=== PATIENT | female | born 1950 | race Caucasian/White ===

== ENCOUNTER 2020-10-13 08:52 | Outpatient (REF) | payer MEDICARE, SELFPAY ==
[2020-10-13 10:26] LABS: MANUAL DIFF FLAG NO
[2020-10-13 10:43] LABS: Basophils Absolute Auto 0.1 X10*3/uL (0.0-0.2); Basophils Percent Auto 0.6 % (0-2); Eosinophils Absolute Auto 0.3 X10*3/uL (0.0-0.4); Hematocrit 43.5 % (37-47); Hemoglobin 13.4 g/dl (12.0-16.0); Imm Gran Abs Auto 0.04 X10*3/uL (0.00-0.03); Imm Gran Pct Auto 0.5 % (0.0-0.4); Lymphocytes Absolute Auto 1.9 X10*3/uL (1.2-4.9); Lymphocytes Percent Auto 22.8 % (20-40); Mean Corpuscular HGB Conc 30.8 g/dl (31.0-35.0); Mean Corpuscular Hemoglobin 29.5 pg (27.0-33.0); Mean Corpuscular Volume 95.6 fL (80-98); Mean Platelet Volume 10.9 fL (9.4-12.3); Monocytes Absolute Auto 0.7 X10*3/uL (0.1-1.2); Monocytes Percent Auto 7.9 % (2-11); Neutrophils Absolute Auto 5.5 X10*3/uL (2.0-8.3); Neutrophils Percent Auto 64.2 % (45-73); Platelet Count 217 X10*3/uL (160-400); Red Blood Count 4.55 X10*6/uL (4.20-5.50); Red Cell Distribution Width 12.7 % (11.0-16.0); White Blood Count 8.5 X10*3/uL (4.8-10.8)
[2020-10-13 10:59] LABS: Alanine Aminotransferase 32 U/L (0-31); Albumin Level 4.3 g/dL (3.5-5.0); Alkaline Phosphatase 61 U/L (39-117); Anion Gap 11 (12-20); Aspartate Amino Transferase 31 U/L (5-31); Bilirubin Total 0.7 mg/dL (0.0-1.0); Blood Urea Nitrogen 23 mg/dL (9-16); Calcium 8.6 mg/dL (8.4-10.2); Carbon Dioxide 28 mmol/L (22-29); Chloride 107 mmol/L (96-108); Estimated Glomerular Filt Rate 31; Glucose Fasting 83 mg/dL (60-99); Potassium 4.5 mmol/L (3.3-5.1); Sodium 141 mmol/L (135-145); Total Protein 7.2 g/dL (6.5-8.0)
[2020-10-13 11:23] LABS: Vitamin B12 251 pg/mL (200-900)
== END 2020-10-13 08:53 | disposition home or self-care (01) ==
LOC: HO.10HDL 08:52
PROVIDERS: Visit Provider Internal Medicine
DX: J44.9 Chronic obstructive pulmonary disease, unspecified (principal); E53.8 Deficiency of other specified B group vitamins; N18.9 Chronic kidney disease, unspecified; Z93.3 Colostomy status
CPT/HCPCS: 36415; 80053; 82607; 85025

== ENCOUNTER → 2021-01-04 08:22 | Outpatient (BNVA) | payer MEDICARE, SELFPAY | PROVIDERS: PCP Internal Medicine; Visit Provider Surgery | DX: K43.5 Parastomal hernia without obstruction or gangrene (principal) | CPT/HCPCS: 99202 ==

== ENCOUNTER → 2021-01-21 14:23 | Outpatient (BNVA) | payer MEDICARE, SELFPAY | PROVIDERS: PCP Internal Medicine; Referring Provider Internal Medicine; Visit Provider Surgery | DX: K94.10 Enterostomy complication, unspecified (principal); K43.5 Parastomal hernia without obstruction or gangrene | CPT/HCPCS: Q3014 ==

== ENCOUNTER → 2021-03-25 08:59 | Outpatient (BNVA) | payer MEDICARE, SELFPAY | PROVIDERS: PCP Internal Medicine; Referring Provider Internal Medicine; Visit Provider Surgery | DX: Z48.00 Encounter for change or removal of nonsurgical wound dressing (principal); K28.9 Gastrojejunal ulcer, unspecified as acute or chronic, without hemorrhage or perforation; K43.5 Parastomal hernia without obstruction or gangrene; E66.9 Obesity, unspecified | CPT/HCPCS: 99212 ==

== ENCOUNTER 2021-04-26 07:53 | Outpatient (REF) | payer MEDICARE, SELFPAY ==
[2021-04-26 11:34] LABS: MANUAL DIFF FLAG NO
[2021-04-26 11:39] LABS: Basophils Percent Auto 0.4 % (0-2); Eosinophils Absolute Auto 0.4 X10*3/uL (0.0-0.4); Eosinophils Percent Auto 4.1 % (0-4); Hematocrit 43.4 % (37-47); Hemoglobin 13.7 g/dl (12.0-16.0); Imm Gran Abs Auto 0.02 X10*3/uL (0.00-0.03); Imm Gran Pct Auto 0.2 % (0.0-0.4); Lymphocytes Absolute Auto 2.7 X10*3/uL (1.2-4.9); Lymphocytes Percent Auto 27.6 % (20-40); Mean Corpuscular HGB Conc 31.6 g/dl (31.0-35.0); Mean Corpuscular Hemoglobin 29.6 pg (27.0-33.0); Mean Corpuscular Volume 93.7 fL (80-98); Mean Platelet Volume 11.1 fL (9.4-12.3); Monocytes Absolute Auto 0.8 X10*3/uL (0.1-1.2); Monocytes Percent Auto 8.3 % (2-11); Neutrophils Absolute Auto 5.9 X10*3/uL (2.0-8.3); Neutrophils Percent Auto 59.4 % (45-73); Platelet Count 230 X10*3/uL (160-400); Red Blood Count 4.63 X10*6/uL (4.20-5.50); Red Cell Distribution Width 12.9 % (11.0-16.0); White Blood Count 9.9 X10*3/uL (4.8-10.8)
[2021-04-26 12:14] LABS: Alanine Aminotransferase 24 U/L (0-31); Albumin Level 4.4 g/dL (3.5-5.0); Alkaline Phosphatase 65 U/L (39-117); Anion Gap 14 (12-20); Aspartate Amino Transferase 40 U/L (5-31); Bilirubin Total 0.7 mg/dL (0.0-1.0); Blood Urea Nitrogen 23 mg/dL (9-16); Calcium 9.5 mg/dL (8.4-10.2); Carbon Dioxide 22 mmol/L (22-29); Chloride 110 mmol/L (96-108); Cholesterol 129 mg/dL; Estimated Glomerular Filt Rate 29; Glucose Fasting 95 mg/dL (60-99); HDL Cholesterol 45 mg/dL; LDL Cholesterol Calculated 39 mg/dl; Potassium 4.3 mmol/L (3.3-5.1); Sodium 142 mmol/L (135-145); Total Protein 7.4 g/dL (6.5-8.0); Triglycerides 228 mg/dL
[2021-04-26 12:29] LABS: Vitamin B12 272 pg/mL (200-900)
== END 2021-04-26 07:54 | disposition home or self-care (01) ==
LOC: HO.HMGCLDS 07:53
PROVIDERS: PCP Internal Medicine; Visit Provider Internal Medicine
DX: E78.00 Pure hypercholesterolemia, unspecified (principal); J44.9 Chronic obstructive pulmonary disease, unspecified; N18.9 Chronic kidney disease, unspecified; K94.10 Enterostomy complication, unspecified; E53.8 Deficiency of other specified B group vitamins
CPT/HCPCS: 36415; 80053; 80061; 82607; 85025

== ENCOUNTER 2021-10-11 08:21 | Outpatient (REF) | payer MEDICARE, SELFPAY ==
[2021-10-11 12:06] LABS: MANUAL DIFF FLAG NO
[2021-10-11 12:11] LABS: Basophils Absolute Auto 0.1 X10*3/uL (0.0-0.2); Basophils Percent Auto 0.6 % (0-2); Eosinophils Absolute Auto 0.3 X10*3/uL (0.0-0.4); Eosinophils Percent Auto 3.3 % (0-4); Hematocrit 44.2 % (37.0-47.0); Hemoglobin 13.5 g/dl (12.0-16.0); Imm Gran Abs Auto 0.03 X10*3/uL (0.00-0.03); Imm Gran Pct Auto 0.3 % (0.0-0.4); Lymphocytes Absolute Auto 2.1 X10*3/uL (1.2-4.9); Mean Corpuscular HGB Conc 30.5 g/dl (31.0-35.0); Mean Corpuscular Hemoglobin 29.4 pg (27.0-33.0); Mean Corpuscular Volume 96.3 fL (80.0-98.0); Mean Platelet Volume 10.6 fL (9.4-12.3); Monocytes Absolute Auto 0.7 X10*3/uL (0.1-1.2); Monocytes Percent Auto 7.6 % (2-11); Neutrophils Absolute Auto 5.8 x10*3/uL (2.0-8.3); Neutrophils Percent Auto 65.2 % (45-73); Platelet Count 230 X10*3/uL (160-400); Red Blood Count 4.59 X10*6/uL (4.20-5.50); Red Cell Distribution Width 12.4 % (11.0-16.0)
[2021-10-11 12:43] LABS: Alanine Aminotransferase 19 U/L (0-31); Albumin Level 4.4 g/dL (3.5-5.0); Alkaline Phosphatase 56 U/L (39-117); Anion Gap 12 (12-20); Aspartate Amino Transferase 23 U/L (5-31); Bilirubin Total 0.7 mg/dL (0.0-1.0); Blood Urea Nitrogen 26 mg/dL (9-16); Calcium 9.6 mg/dL (8.4-10.2); Carbon Dioxide 25 mmol/L (22-29); Chloride 109 mmol/L (96-108); Estimated Glomerular Filt Rate 30; Glucose Random 86 mg/dL (60-115); Potassium 4.5 mmol/L (3.3-5.1); Sodium 141 mmol/L (135-145); Total Protein 7.5 g/dL (6.5-8.0)
== END 2021-10-11 08:22 | disposition home or self-care (01) ==
LOC: HO.HMGCLDS 08:21
PROVIDERS: PCP Internal Medicine; Visit Provider Internal Medicine
DX: N18.9 Chronic kidney disease, unspecified (principal); E78.00 Pure hypercholesterolemia, unspecified; M84.38XA Stress fracture, other site, initial encounter for fracture; X58.XXXA Exposure to other specified factors, initial encounter; Y93.9 Activity, unspecified; Y92.9 Unspecified place or not applicable; Y99.8 Other external cause status; Z93.3 Colostomy status
CPT/HCPCS: 36415; 80053; 82550; 85025

== ENCOUNTER 2022-02-28 15:48 | Outpatient (REF) | payer MEDICARE, SELFPAY ==
--- NOTE | ~2022-02-28 | XR_ITS ---
EXAMINATION: XR SINUSES CLINICAL INFORMATION: Sinus pain. Right-sided sinus pressure. COMPARISON: None TECHNIQUE: 3 views of the sinuses were obtained. FINDINGS: Paranasal sinuses appear clear without air-fluid levels. No fractures are identified. No radiodense foreign bodies. XR/XR sinus min 3V IMPRESSION: The paranasal sinuses appear clear.
== END 2022-02-28 15:49 | disposition home or self-care (01) ==
LOC: HO.XRAY 15:48
PROVIDERS: PCP Internal Medicine; Visit Provider Internal Medicine
DX: R51.9 Headache, unspecified (principal); J34.89 Other specified disorders of nose and nasal sinuses
CPT/HCPCS: 70220

== ENCOUNTER 2022-05-02 10:27 | Outpatient (REF) | payer MEDICARE, SELFPAY ==
[2022-05-02 12:38] LABS: Vitamin B12 245 pg/mL (200-900)
[2022-05-02 12:44] LABS: Alanine Aminotransferase 15 U/L (0-31); Albumin Level 4.2 g/dL (3.5-5.0); Alkaline Phosphatase 50 U/L (39-117); Anion Gap 13 (12-20); Aspartate Amino Transferase 22 U/L (5-31); Bilirubin Total 0.5 mg/dL (0.0-1.0); Blood Urea Nitrogen 22 mg/dL (9-16); Calcium 9.2 mg/dL (8.4-10.2); Carbon Dioxide 25 mmol/L (22-29); Chloride 107 mmol/L (96-108); Estimated Glomerular Filt Rate 32; Glucose Random 96 mg/dL (60-115); Potassium 4.2 mmol/L (3.3-5.1); Sodium 141 mmol/L (135-145); Total Protein 6.9 g/dL (6.5-8.0)
== END 2022-05-02 10:28 | disposition home or self-care (01) ==
LOC: HO.HMGCLDS 10:27
PROVIDERS: PCP Internal Medicine; Visit Provider Internal Medicine
DX: J44.9 Chronic obstructive pulmonary disease, unspecified (principal); N18.9 Chronic kidney disease, unspecified; E53.8 Deficiency of other specified B group vitamins; Z93.3 Colostomy status
CPT/HCPCS: 36415; 80053; 82607

== ENCOUNTER 2022-11-07 07:51 | Outpatient (REF) | payer MEDICARE, SELFPAY ==
[2022-11-07 11:26] LABS: MANUAL DIFF FLAG NO
[2022-11-07 11:38] LABS: Basophils Absolute Auto 0.1 X10*3/uL (0.0-0.2); Basophils Percent Auto 0.6 % (0-2); Eosinophils Absolute Auto 0.4 X10*3/uL (0.0-0.4); Eosinophils Percent Auto 4.2 % (0-4); Hematocrit 40.1 % (37.0-47.0); Hemoglobin 12.7 g/dl (12.0-16.0); Imm Gran Abs Auto 0.02 X10*3/uL (0.00-0.03); Imm Gran Pct Auto 0.2 % (0.0-0.4); Lymphocytes Absolute Auto 2.1 X10*3/uL (1.2-4.9); Lymphocytes Percent Auto 25.1 % (20-40); Mean Corpuscular HGB Conc 31.7 g/dl (31.0-35.0); Mean Corpuscular Hemoglobin 30.7 pg (27.0-33.0); Mean Corpuscular Volume 96.9 fL (80.0-98.0); Monocytes Absolute Auto 0.7 X10*3/uL (0.1-1.2); Monocytes Percent Auto 7.8 % (2-11); Neutrophils Absolute Auto 5.2 x10*3/uL (2.0-8.3); Neutrophils Percent Auto 62.1 % (45-73); Platelet Count 190 X10*3/uL (160-400); Red Blood Count 4.14 X10*6/uL (4.20-5.50); Red Cell Distribution Width 12.4 % (11.0-16.0); White Blood Count 8.3 X10*3/uL (4.8-10.8)
[2022-11-07 12:50] LABS: Alanine Aminotransferase 16 U/L (0-31); Albumin Level 4.1 g/dL (3.5-5.0); Alkaline Phosphatase 59 U/L (39-117); Anion Gap 13 (12-20); Aspartate Amino Transferase 21 U/L (5-31); Bilirubin Total 0.7 mg/dL (0.0-1.0); Blood Urea Nitrogen 19 mg/dL (9-16); Calcium 9.2 mg/dL (8.4-10.2); Carbon Dioxide 25 mmol/L (22-29); Chloride 111 mmol/L (96-108); Cholesterol 144 mg/dL; Estimated Glomerular Filt Rate 35; Glucose Fasting 83 mg/dL (60-99); HDL Cholesterol 46 mg/dL; LDL Cholesterol Calculated 50 mg/dl; Potassium 4.6 mmol/L (3.3-5.1); Sodium 144 mmol/L (135-145); Total Protein 6.7 g/dL (6.5-8.0); Triglycerides 243 mg/dL
[2022-11-07 12:57] LABS: Vitamin B12 294 pg/mL (200-900)
== END 2022-11-07 07:52 | disposition home or self-care (01) ==
LOC: HO.HMGCLDS 07:51
PROVIDERS: PCP Internal Medicine; Visit Provider Internal Medicine
DX: Z00.00 Encounter for general adult medical examination without abnormal findings (principal); Z20.2 Contact with and (suspected) exposure to infections with a predominantly sexual mode of transmission
CPT/HCPCS: 36415; 80053; 80061; 82607; 85025

== ENCOUNTER 2023-04-20 11:40 | Outpatient (REF) | payer MEDICARE, SELFPAY ==
[2023-04-20 11:52] LABS: MANUAL DIFF FLAG NO
[2023-04-20 12:30] LABS: Basophils Absolute Auto 0.1 X10*3/uL (0.0-0.2); Basophils Percent Auto 0.6 % (0-2); Eosinophils Absolute Auto 0.3 X10*3/uL (0.0-0.4); Eosinophils Percent Auto 3.7 % (0-4); Hematocrit 39.3 % (37.0-47.0); Hemoglobin 12.4 g/dl (12.0-16.0); Imm Gran Abs Auto 0.04 X10*3/uL (0.00-0.03); Imm Gran Pct Auto 0.5 % (0.0-0.4); Lymphocytes Absolute Auto 2.2 X10*3/uL (1.2-4.9); Lymphocytes Percent Auto 25.5 % (20-40); Mean Corpuscular HGB Conc 31.6 g/dl (31.0-35.0); Mean Corpuscular Hemoglobin 29.9 pg (27.0-33.0); Mean Corpuscular Volume 94.7 fL (80.0-98.0); Mean Platelet Volume 10.5 fL (9.4-12.3); Monocytes Absolute Auto 0.9 X10*3/uL (0.1-1.2); Monocytes Percent Auto 10.3 % (2-11); Neutrophils Percent Auto 59.4 % (45-73); Platelet Count 195 X10*3/uL (160-400); Red Blood Count 4.15 X10*6/uL (4.20-5.50); Red Cell Distribution Width 12.9 % (11.0-16.0); White Blood Count 8.5 X10*3/uL (4.8-10.8)
[2023-04-20 13:15] LABS: Anion Gap 15 (12-20); Blood Urea Nitrogen 20 mg/dL (9-16); Calcium 9.4 mg/dL (8.4-10.2); Carbon Dioxide 23 mmol/L (22-29); Chloride 105 mmol/L (96-108); Estimated Glomerular Filt Rate 32; Glucose Random 69 mg/dL (60-115); Potassium 4.5 mmol/L (3.3-5.1); Sodium 138 mmol/L (135-145)
[2023-04-20 13:23] LABS: Vitamin D 25-OH Total 40.4 ng/mL (>30)
== END 2023-04-20 11:41 | disposition home or self-care (01) ==
LOC: HO.LAB 11:40
PROVIDERS: PCP Internal Medicine; Visit Provider Internal Medicine
DX: I12.9 Hypertensive chronic kidney disease with stage 1 through stage 4 chronic kidney disease, or unspecified chronic kidney disease (principal); N18.9 Chronic kidney disease, unspecified; J44.9 Chronic obstructive pulmonary disease, unspecified; E53.8 Deficiency of other specified B group vitamins
CPT/HCPCS: 36415; 80048; 82306; 85025

== ENCOUNTER 2023-09-28 10:16 | Outpatient (REF) | payer MEDICARE, SELFPAY ==
[2023-09-28 11:04] LABS: MANUAL DIFF FLAG NO
[2023-09-28 11:12] LABS: Basophils Absolute Auto 0.1 X10*3/uL (0.0-0.2); Basophils Percent Auto 0.6 % (0-2); Eosinophils Absolute Auto 0.3 X10*3/uL (0.0-0.4); Eosinophils Percent Auto 3.3 % (0-4); Hematocrit 42.1 % (37.0-47.0); Hemoglobin 13.6 g/dl (12.0-16.0); Imm Gran Abs Auto 0.03 X10*3/uL (0.00-0.03); Imm Gran Pct Auto 0.4 % (0.0-0.4); Lymphocytes Absolute Auto 1.9 X10*3/uL (1.2-4.9); Lymphocytes Percent Auto 23.2 % (20-40); Mean Corpuscular HGB Conc 32.3 g/dl (31.0-35.0); Mean Corpuscular Hemoglobin 29.8 pg (27.0-33.0); Mean Corpuscular Volume 92.3 fL (80.0-98.0); Monocytes Absolute Auto 0.7 X10*3/uL (0.1-1.2); Monocytes Percent Auto 8.6 % (2-11); Neutrophils Absolute Auto 5.1 x10*3/uL (2.0-8.3); Neutrophils Percent Auto 63.9 % (45-73); Platelet Count 216 X10*3/uL (160-400); Red Blood Count 4.56 X10*6/uL (4.20-5.50); Red Cell Distribution Width 12.7 % (11.0-16.0)
[2023-09-28 11:48] LABS: Alanine Aminotransferase 22 U/L (0-31); Albumin Level 4.3 g/dL (3.5-5.0); Alkaline Phosphatase 64 U/L (39-117); Anion Gap 13 (12-20); Aspartate Amino Transferase 24 U/L (5-31); Bilirubin Total 0.5 mg/dL (0.0-1.0); Blood Urea Nitrogen 24 mg/dL (9-16); Calcium 9.6 mg/dL (8.4-10.2); Carbon Dioxide 26 mmol/L (22-29); Chloride 107 mmol/L (96-108); Estimated Glomerular Filt Rate 28; Glucose Random 87 mg/dL (60-115); Potassium 4.7 mmol/L (3.3-5.1); Sodium 141 mmol/L (135-145); Total Protein 7.7 g/dL (6.5-8.0)
[2023-09-28 12:04] LABS: Vitamin B12 281 pg/mL (200-900)
== END 2023-09-28 10:17 | disposition home or self-care (01) ==
LOC: HO.10HDL 10:16
PROVIDERS: Visit Provider Internal Medicine
DX: I12.9 Hypertensive chronic kidney disease with stage 1 through stage 4 chronic kidney disease, or unspecified chronic kidney disease (principal); N18.9 Chronic kidney disease, unspecified; E53.8 Deficiency of other specified B group vitamins
CPT/HCPCS: 36415; 80053; 82607; 85025

== ENCOUNTER 2023-11-29 15:46 | Emergency (ER) | payer MEDICARE, SELFPAY ==
[2023-11-29 15:56] VITALS: BP 156/80; PULSE 78; RESP 16; TEMP 36.8; O2SAT 95; BMI 29.0
--- NOTE | 2023-11-29 16:41 | ED.GENADULT ---
HPI - General Adult General Chief complaint: Animal Bite Stated complaint: tick bite Time Seen by Provider: 11/29/23 16:40 Source: patient Mode of arrival: ambulatory Limitations: no limitations History of Present Illness ED Provider: Tash Mathew PA-C HPI narrative: Patient is a 73 year old assigned female at with a history of HTN presenting to the emergency department today after removing a tick from the top of her left ear. Patient states that she felt a tick bite her left ear and removed it, complete with head. Patient states that her ear continues to hurt and given this is her first time being bit by a tick, she is concerned. Patient denies any dizziness, lightheadedness, abdominal pain, nausea, vomiting, fever, chills, blurry vision, double vision, loss of vision, chest pain, difficulty breathing, shortness of breath, back pain, night sweats, pain with urination, increased urinary frequency, increased urinary urgency, blood in her urine or stool, syncope or a near syncopal episode, bowel incontinence, bladder incontinence, bowel retention, bladder retention, or any other complaints at this time. Onset (ago): minute(s) Location: left (ear) Relieving factors: none Exacerbating factors: none Associated symptoms: denies other symptoms Treatments prior to arrival: none Related Data Home Medications ?Medication ?Instructions ?Recorded ?Confirmed atorvastatin 10 mg tablet 10 mg PO DAILY 01/04/21 03/25/21 clotrimazole 1 % topical cream appl topical BID 01/04/21 03/25/21 gabapentin 300 mg capsule 300 mg PO BID PRN pain 01/04/21 03/25/21 metoprolol tartrate 25 mg tablet 12.5 mg PO BID 01/04/21 03/25/21 Allergies Allergy/AdvReac Type Severity Reaction Status Date / Time No Known Allergies Allergy Unknown Verified 11/29/23 15:59 Review of Systems Constitutional: Constitutional: Reports no additional constitutional complaints, Denies chills, Denies fever(s) and Denies night sweats Eyes: Eyes: Reports no additional eye complaints, Denies blurry vision, Denies change in vision, Denies diplopia, Denies eye discharge, Denies loss of vision and Denies eye pain ENT: Denies dizziness Comments: left ear pain Cardiovascular: Cardiovascular: Reports no additional cardiovascular complaints, Denies chest pain, Denies lightheadedness, Denies Loss of Consciousness and Denies dyspnea Respiratory: Respiratory: Reports no additional respiratory complaints and Denies dyspnea Gastrointestinal: Gastrointestinal: Reports no additional gastrointestinal complaints, Denies abdominal pain, Denies melena, Denies hematochezia, Denies change in bowel habits and Denies change in stool character Genitourinary: Genitourinary: Denies hematuria, Denies urinary frequency, Denies dysuria, Denies urinary incontinence, Denies urinary hesitancy and Denies urinary urgency Musculoskeletal: Musculoskeletal: Reports no additional musculoskeletal complaints, Denies numbness and Denies tingling Neurologic: Denies dizziness, Denies loss of vision, Denies numbness and Denies tingling Psychiatric: Psychiatric: Reports no additional psychiatric complaints Endocrine: Endocrine: Reports no additional endocrine complaints Hematologic/Lymphatic: Hematologic/Lymphatic: Reports no additional hematologic/lymphatic complaints Allergic/Immunologic: Allergic/Immunologic: Reports no additional allergic/immunologic complaints PMFSH Past Medical History Attestation statement: The following information was validated with the patient. Source: old records reviewed and nursing notes reviewed Medical History Parastomal hernia Complication of external stoma of gastrointestinal tract Morbid obesity Hypertension Family History Family History Father Metastatic cancer Social History Social History Alcohol intake: never Patient Tobacco Use Status: Current everyday Tobacco user Advance Directives: No Advance Directives Information Provided: No Do you have a plan to hurt others: No Plan Physical Exam ED Vital Signs: Vital Signs - 24 hr 11/29/23 15:56 11/29/23 17:48 Temperature 98.3 F 97.9 F Pulse Rate 78 83 Respiratory Rate 16 18 Blood Pressure 156/80 H 123/57 L Pulse Oximetry 95 97 Oxygen Delivery Method Room Air Room Air BMI result Body Mass Index 29.0 Const General: cooperative, no acute distress, alert and awake Nutritional Appearance: well nourished Orientation/consciousness: patient oriented x3 Limitations: no limitations HENMT Head: Yes normal to inspection and Yes atraumatic Ears: hearing grossly normal bilaterally and other (minimal erythema to the most superior aspect of the left external ear) General nose exam: Normal external nose present, no nasal discharge noted and no epistaxis Face and sinus: Yes normal facial exam, No abrasion and No laceration Mouth: Normal oral and palatal mucosa present, no drooling and no muffled voice Eyes General: appearance normal, both eyes and all related structures Periorbital: periorbital findings normal Eyelids: Yes eyelids normal Conjunctivae: conjunctivae normal Pupils: Equal, round and reactive pupils present EOM: EOMs intact bilaterally Neck Neck: Yes normal visual inspection, Yes full ROM and Yes no lymphadenopathy Chest Chest palpation & inspection: normal inspection of the chest Resp Effort & Inspection: normal respiratory effort and able to speak in complete sentences GI Inspection: Yes normal to inspection Neuro General: patient oriented x3 and moves all extremities Cranial nerves: Yes Equal, round and reactive pupils present Cognition (Neuro): normal cognition Motor exam (neuro): 5/5 motor strength present throughout Sensory Exam: Normal double simultaneous stimulation for sensation Coordination: [id number] test normal Extrem General: Yes normal to inspection, Yes full ROM and Yes capillary refill normal Psych Appearance: grossly normal Mental Status: mental status grossly normal Affect: normal affect Attitude: cooperative Thought process: Normal thought process present Thought content: Normal thought content present Insight: Good insight present (Psych) Medical Decision Making Medical Decision Making MDM Narrative: Patient is a 73 year old assigned female at with a history of HTN presenting to the emergency department today with a left ear tick bite. Patient's physical exam showed erythema to the left ear but no evidence of retained tick head or particles. Patient's Lyme test is pending. I explained to the patient that given the relatively short time the tick was attached and the successful complete removal of it from her ear, it is lerner to await Lyme results before beginning antibiotics. I explained my physical exam findings to the patient. I answered all questions asked by the patient. I stressed the importance of the patient taking her medication as prescribed. I stressed the importance of the patient following up with her primary care provider. I stressed the importance of the patient returning to the emergency department immediately if her symptoms were to worsen or if she were to develop any dizziness, shortness of breath, difficulty breathing, chest pain, blurry vision, loss of vision, nausea, vomiting, abdominal pain, fever, chills, back pain, or any other complaints. Patient verbalized agreement and understanding with this treatment plan and discharge. Differential Diagnosis Differential Diagnoses: The differential diagnosis associated with the presentation includes Tick bite Lyme disease Admission/Observation Consideration of admission/observation: Escalation of care including admission/observation considered Patient would have been admitted to the hospital had her clinical presentation warranted hospital admission. Prescription Management I considered prescription management with: Antibiotic (I considered giving prophylactic antibitioc for Lyme disease however, given limited exposure - did not at this time.) Chronic Conditions Patient?s care impacted by: Hypertension Discharge Plan Discharge Clinical Impression: Tick bite Patient Disposition: Home, Self-Care Instructions: Tick Bite (ED) Additional Instructions: Given that you removed the head of the tick very quickly after the initial bite - it is of lower likelihood that you have contracted anything from the tick. If your Lyme test is positive, we will call you. Follow up with your primary care provider. Return to the emergency department immediately if your symptoms worsen or if you develop any dizziness, shortness of breath, difficulty breathing, chest pain, blurry vision, loss of vision, nausea, vomiting, abdominal pain, fever, chills, back pain, or any other complaints. Prescriptions: No Action metoprolol tartrate 25 mg tablet 12.5 mg PO BID atorvastatin 10 mg tablet 10 mg PO DAILY clotrimazole 1 % cream topical BID gabapentin 300 mg capsule 300 mg PO BID PRN (Reason: pain) Referrals: Wali Harris MD [Primary Care Provider] - Print Language: Scottish
[2023-11-29 17:48] VITALS: BP 123/57; PULSE 83; RESP 18; TEMP 36.6; O2SAT 97
[2023-12-01 00:04] LABS: A. Phagocytphilium DNA,RT-PCR NOT DETECTED (NOT DETECTED); Babesia Microti DNA, RT-PCR NOT DETECTED (NOT DETECTED); Borrelia Miyamotoi,DNA RT-PCR NOT DETECTED (NOT DETECTED); E.Chaffeensis DNA RT-PCR NOT DETECTED (NOT DETECTED); Lyme(Borrelia ssp)DNA RT-PCR NOT DETECTED (NOT DETECTED)
== END 2023-11-29 18:34 | disposition home or self-care (01) ==
PROVIDERS: Physician Assistant Medical; Emergency Provider Emergency Medicine Emergency Medical Services; PCP Internal Medicine
DX: S00.462A Insect bite (nonvenomous) of left ear, initial encounter (principal); W57.XXXA Bitten or stung by nonvenomous insect and other nonvenomous arthropods, initial encounter; Y93.9 Activity, unspecified; Y92.9 Unspecified place or not applicable; Y99.9 Unspecified external cause status; I10 Essential (primary) hypertension
CPT/HCPCS: 36415; 87468; 87469; 87478; 87484; 87798; 99283

== ENCOUNTER 2024-04-16 09:47 | Emergency (ER) | payer MEDICARE, SELFPAY ==
[2024-04-16 10:04] VITALS: BP 172/65; PULSE 71; RESP 18; TEMP 36.9; O2SAT 97; BMI 29.1
[2024-04-16 10:54] LABS: MANUAL DIFF FLAG NO
[2024-04-16 10:56] LABS: Basophils Absolute Auto 0.1 X10*3/uL (0.0-0.2); Basophils Percent Auto 0.5 % (0-2); Eosinophils Absolute Auto 0.1 X10*3/uL (0.0-0.4); Eosinophils Percent Auto 1.4 % (0-4); Hematocrit 41.8 % (37.0-47.0); Hemoglobin 13.4 g/dl (12.0-16.0); Imm Gran Abs Auto 0.04 X10*3/uL (0.00-0.03); Imm Gran Pct Auto 0.4 % (0.0-0.4); Lymphocytes Absolute Auto 1.7 X10*3/uL (1.2-4.9); Lymphocytes Percent Auto 16.5 % (20-40); Mean Corpuscular HGB Conc 32.1 g/dl (31.0-35.0); Mean Corpuscular Volume 93.7 fL (80.0-98.0); Mean Platelet Volume 9.7 fL (9.4-12.3); Monocytes Absolute Auto 0.7 X10*3/uL (0.1-1.2); Neutrophils Absolute Auto 7.5 x10*3/uL (2.0-8.3); Neutrophils Percent Auto 74.2 % (45-73); Platelet Count 181 X10*3/uL (160-400); Red Blood Count 4.46 X10*6/uL (4.20-5.50); Red Cell Distribution Width 12.5 % (11.0-16.0); White Blood Count 10.1 X10*3/uL (4.8-10.8)
[2024-04-16 11:17] LABS: Alanine Aminotransferase 20 U/L (0-31); Albumin Level 4.2 g/dL (3.5-5.0); Alkaline Phosphatase 55 U/L (39-117); Anion Gap 12 (12-20); Aspartate Amino Transferase 29 U/L (5-31); Bilirubin Total 0.6 mg/dL (0.0-1.0); Blood Urea Nitrogen 16 mg/dL (9-16); Calcium 9.5 mg/dL (8.4-10.2); Carbon Dioxide 27 mmol/L (22-29); Chloride 111 mmol/L (96-108); Creatinine Clr Calc Pharmacy 33.7; Estimated Glomerular Filt Rate 31; Glucose Random 89 mg/dL (60-115); Potassium 4.8 mmol/L (3.3-5.1); Sodium 145 mmol/L (135-145); Total Protein 7.2 g/dL (6.5-8.0)
== END 2024-04-16 21:34 | disposition left against medical advice (07) ==
LOC: HO.ED 21:07
PROVIDERS: Emergency Provider Emergency Medicine; PCP Internal Medicine
DX: E86.0 Dehydration (principal); Z79.899 Other long term (current) drug therapy
CPT/HCPCS: 36415; 80053; 85025; 99281; 99283

== ENCOUNTER 2024-04-29 08:52 | Emergency (ER) | payer MEDICARE, SELFPAY ==
--- NOTE | ~2024-04-29 | CT_ITS ---
EXAMINATION: CT HEAD WITHOUT CONTRAST CT SOFT TISSUE NECK WITHOUT CONTRAST CLINICAL INFORMATION: Episode of altered mental status. Seizure. Right-sided neck pain and tenderness. COMPARISON: None available. TECHNIQUE: Contiguous axial imaging was performed from the skull base to vertex without intravenous administration of contrast. Multidetector helical imaging was performed in the axial plane without intravenous contrast. Multiple axial reformats and coronal/sagittal reconstructions were created the technologist workstation for review. This CT examination was performed using dose optimization techniques as appropriate, variously including the following: *Automated exposure control. *Adjustment of mA and/or kV according to patient size (this includes techniques or standardized protocols for targeted exams where dose is matched to indication/reason for exam; i.e. extremities or head). *Use of iterative reconstruction technique. DLP: 1056 mGy-cm FINDINGS: Head: There is no evidence of acute intracranial hemorrhage or edematous territorial infarction. Whitt-white matter differentiation is preserved. There is no abnormal attenuation within the brain parenchyma. The ventricles are normal in morphology and size. No evidence for obstructive hydrocephalus. No abnormal mass effect or midline shift. No extra-axial fluid collections. Calcific atherosclerotic disease of the intracranial internal carotid arteries. No hyperdense vessel sign. No acute soft tissue or osseous abnormalities. Mild mucosal thickening of the paranasal sinuses. Mild rightward nasal septal deviation. The mastoid air cells and middle ear cavities are clear. Moderate degenerative arthropathy of the temporomandibular joints. Neck: No significant cutaneous thickening or subcutaneous inflammation. No discrete fluid collection within the deep tissues of the neck. The premaxillary, retromaxillary, pterygopalatine fossa, orbital apical, parapharyngeal, and prelaryngeal adipose tissue is maintained. There is a soft tissue nodule along the posterior aspect of the superficial lobe of the left parotid gland, measuring up to 1.2 x 0.8 x 1.3 cm. There is a soft tissue nodule in the superficial lobe of the right parotid gland posterior to the retromandibular vein, measuring up to 1.2 x 0.8 x 1.5 cm. Normal appearance of the submandibular glands. Potential 1.6 cm hypoattenuating nodule in the lower pole of the left thyroid lobe. Scattered subcentimeter lymph nodes bilaterally, none of which are pathologically enlarged. No demonstrated focal lesion in the intrinsic tissues of the tongue or floor of mouth. Normal mucosal contours of the pharynx and larynx. Normal appearance of the hyoid bone, thyroid cartilage, or cartilaginous trachea. The airways remains widely patent. No radiopaque foreign bodies. The atlantooccipital and atlantoaxial articulations remain well aligned. Straightening of the normal cervical lordosis. No evidence of acute fracture or subluxation of the cervical spine. The vertebral body heights are maintained. Advanced degenerative disc disease from C3-T1 with disc-osteophyte complex formation. There appears to be at least moderate spinal canal stenoses from C3-C7. Facet and uncovertebral joint arthropathy leads to osseous encroachment on the neural foramina from C3-C7. There is no prevertebral soft tissue swelling. The visualized portion of the skull base is without significant abnormalities. The visualized paranasal sinuses are clear. The mastoid air cells and middle ear cavities are clear. No demonstrated significant periapical odontogenic disease. Upper Chest: Mild to moderate centrilobular emphysema of the visualized upper lungs. CT/CT soft tissue neck wo IV con IMPRESSION: 1. No evidence of acute intracranial hemorrhage or edematous territorial infarction. 2. Nonspecific soft tissue nodules in the superficial lobes of the bilateral parotid glands. Recommend further characterization with directed ultrasound and/or tissue sampling. 3. Potential 1.6 cm nodule in the lower pole of the left thyroid lobe. Recommend further characterization with thyroid ultrasound. 4. Advanced multilevel degenerative spondyloarthropathy of the cervical spine. Most notably on this limited exam without intrathecal contrast, there appears to be at least moderate spinal canal stenoses from C3-C7. 5. Emphysema. Electronically signed by: Chong Paz DO 04/29/2024 04:00 PM EDT
[2024-04-29 08:58] VITALS: BP 171/69; PULSE 57; RESP 16; TEMP 37; O2SAT 100; BMI 28.5
--- NOTE | 2024-04-29 09:05 | ECG_ITS ---
Test Reason : PALPITATIONS Blood Pressure : / mmHG Vent. Rate : 053 BPM Atrial Rate : 053 BPM P-R Int : 170 ms QRS Dur : 154 ms QT Int : 486 ms P-R-T Axes : 095 -43 074 degrees QTc Int : 456 ms Sinus bradycardia Left axis deviation Left bundle branch block Abnormal ECG When compared with ECG of 24-JUN-2010 14:28, Vent. rate has decreased BY 26 BPM Left bundle branch block is now Present Referred By: Generic ED Physician Electronically Signed By:Emerson Weir
[2024-04-29 09:33] LABS: MANUAL DIFF FLAG NO
[2024-04-29 09:37] LABS: Basophils Percent Auto 0.5 % (0-2); Eosinophils Absolute Auto 0.2 X10*3/uL (0.0-0.4); Hematocrit 39.7 % (37.0-47.0); Hemoglobin 12.7 g/dl (12.0-16.0); Imm Gran Abs Auto 0.02 X10*3/uL (0.00-0.03); Imm Gran Pct Auto 0.3 % (0.0-0.4); Lymphocytes Absolute Auto 1.6 X10*3/uL (1.2-4.9); Lymphocytes Percent Auto 21.3 % (20-40); Mean Corpuscular Hemoglobin 30.1 pg (27.0-33.0); Mean Corpuscular Volume 94.1 fL (80.0-98.0); Mean Platelet Volume 9.9 fL (9.4-12.3); Monocytes Absolute Auto 0.6 X10*3/uL (0.1-1.2); Monocytes Percent Auto 8.3 % (2-11); Neutrophils Percent Auto 67.6 % (45-73); Platelet Count 195 X10*3/uL (160-400); Red Blood Count 4.22 X10*6/uL (4.20-5.50); Red Cell Distribution Width 12.4 % (11.0-16.0); White Blood Count 7.3 X10*3/uL (4.8-10.8)
[2024-04-29 09:38] LABS: Appearance Urine Clear; Color Urine Yellow; Glucose Urine UA Negative (Negative); Leukocyte Esterase Urine Negative (Negative); Nitrite Urine Negative (Negative); Specific Gravity - Urine <= 1.005 (1.005-1.025); UMIC TRIGGER UACC YES; Urine Blood Negative (Negative); Urine Ketones Negative (Negative); Urine Protein 30 (1+) mg/dL (Neg-Trace)
[2024-04-29 09:40] LABS: Bacteria Urine None Seen (None Seen); Hyaline Casts Urine 0-2 /LPF (0-2); RBC Urine 0-2 /HPF (0-2); WBC Urine 0-5 /HPF (0-5)
--- NOTE | 2024-04-29 09:55 | ED.GENADULT ---
HPI - General Adult General Chief complaint: Dizziness Stated complaint: Dehydration, lightheaded Time Seen by Provider: 04/29/24 09:55 History of Present Illness ED Provider: Jaya GOFF narrative: The patient is a 73-year-old female who has not been feeling well for about 5 weeks. She says that she has had a sense of fullness in her right ear and has had some pain on the right side of her neck. She also says that she has episodes during which she feels a roaring sensation in her ears. These episodes do not last very long, approximately 10 seconds. Episodes are quite disturbing however and cause her to stop being able to do else. She does not lose consciousness during these episodes although her , who says that he witnessed 1 of these episodes, says that she slumped over on the bed at the time although she did not lose consciousness. This was a few weeks ago. The patient went to see her primary care doctor a couple of weeks ago complaining primarily of right ear symptoms. She says that her PCP said that he could not see anything wrong with her ears and referred her to ENT but does not have an appointment until late June. No fever, sweats, chills. No nausea or vomiting. The patient has an ileostomy. Apparently she had complications following an attempted repair of an abdominal wall hernia. A bowel injury occurred and she was required to have an ileostomy. This occurred approximately 10 years ago and the ileostomyhas never been reversed. the patient says that she might of had some slight increased of ileostomy output recently. Related Data Home Medications ?Medication ?Instructions ?Recorded ?Confirmed atorvastatin 10 mg tablet 10 mg PO DAILY 01/04/21 03/25/21 clotrimazole 1 % topical cream appl topical BID 01/04/21 03/25/21 gabapentin 300 mg capsule 300 mg PO BID PRN pain 01/04/21 03/25/21 metoprolol tartrate 25 mg tablet 12.5 mg PO BID 01/04/21 03/25/21 Allergies Allergy/AdvReac Type Severity Reaction Status Date / Time No Known Allergies Allergy Unknown Verified 04/29/24 09:03 Review of Systems Review of Systems: Yes all other systems are reviewed and are negative [facility] Past Medical History Medical History Parastomal hernia Complication of external stoma of gastrointestinal tract Morbid obesity Hypertension Family History Family History Father Metastatic cancer Social History Social History Alcohol intake: never Patient Tobacco Use Status: Current everyday Tobacco user Advance Directives: No Advance Directives Information Provided: Yes Do you have a plan to hurt others: No Plan Physical Exam ED Vital Signs: Vital Signs - 24 hr 04/29/24 11:56 04/29/24 13:58 04/29/24 16:40 Temperature 97.9 F 97.9 F 98.1 F Pulse Rate 53 51 72 Respiratory Rate 14 14 16 Blood Pressure 165/66 H 146/58 H 153/82 H Pulse Oximetry 98 97 96 Oxygen Delivery Method Room Air Room Air Room Air BMI result Body Mass Index 28.5 Const Other: the patient is a pleasant older woman who is awake and alert and does not seem in any distress. She does not seem ill or uncomfortable in anyway. HENMT Other: The face is symmetrical. Mucous membranes are moist. Tympanic membranes are normal bilaterally. Ear canals are clear. Eyes Other: Pupils are round equal. Extraocular movements are intact. Conjunctivae are clear. Neck Other: There is some generalized tenderness with palpation along the right side of the neck. There is no focal tenderness or obvious discrete swelling. She seems to move her neck easily. Resp Effort & Inspection: normal respiratory effort Auscultation: clear to auscultation bilaterally Cardio Rate: regular rate Rhythm: regular rhythm Heart sounds: S1 normal heart sound present and S2 normal heart sound present GI Other: The abdomen is soft and nontender. There is an ileostomy in the right lower quadrant with unremarkable output in the bag. Skin Other: Skin is dry and unremarkable. Neuro Other: The patient is awake, alert, oriented, appropriate. Mental status is normal. Extraocular movements are normal. Pupils are round equal. Face is symmetrical. Speech is clear. She moves her extremities symmetrically and normally. She has a steady gait. She seems neurologically intact. Extrem Other: No peripheral edema. Medical Decision Making Medical Decision Making MDM Narrative: The patient is a very pleasant 73-year-old. 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 She seems to have chronic renal insufficiency. She presents complaining of intermittent episodes over the last 5 weeks of an unusual auditory sensation. She describes having a sensation of roaring in her ears, primarily in her right ear. This is been associated with a sense of generalized discomfort to the right ear and to the face generally and to the neck, primarily the right side of the neck. Her physical exam does not suggest any etiology for the symptoms she describes. She looks quite well and her exam is unremarkable. She describes episodes of a roaring in her years that last only approximately 10 seconds at a time. She says that she has had approximately 6 episodes in 5 weeks. She has some associated facial, ear, and neck discomfort. She also describes feeling frozen for the 10 seconds that the roaring sensation occurs. Her description of these episodes does not suggest a particular diagnosis. These do not sound like typical seizures. I really do not have any good idea of what these episodes represent. CT scan of her brain and her neck (done without contrast because of her baseline renal insufficiency) show some incidental findings of nodules in her parotid glands and her thyroid gland but do not give any findings that I think might be relevant to the symptoms she describes. Her labs show chronic renal insufficiency but nothing else concerning. Overall I explained to the patient that I really did not have any good idea about what was causing these brief episodes but that I thought there was no likely acutely dangerous process at work. I think she may be discharged to follow-up with her PCP. Lab Data 04/29/24 09:19 04/29/24 09:19 Labs: Lab Results 04/29/24 Range/Units 09:19 WBC 7.3 (4.8-10.8) X10*3/uL RBC 4.22 (4.20-5.50) X10*6/uL Hgb 12.7 (12.0-16.0) g/dl Hct 39.7 (37.0-47.0) % MCV 94.1 (80.0-98.0) fL MCH 30.1 (27.0-33.0) pg MCHC 32.0 (31.0-35.0) g/dl RDW 12.4 (11.0-16.0) % Plt Count 195 (160-400) X10*3/uL MPV 9.9 (9.4-12.3) fL Immature Gran % (Auto) 0.3 (0.0-0.4) % Neut % (Auto) 67.6 (45-73) % Lymph % (Auto) 21.3 (20-40) % [place] % (Auto) 8.3 (2-11) % Eos % (Auto) 2.0 (0-4) % Baso % (Auto) 0.5 (0-2) % Lymph # (Auto) 1.6 (1.2-4.9) X10*3/uL [place] # (Auto) 0.6 (0.1-1.2) X10*3/uL Eos # (Auto) 0.2 (0.0-0.4) X10*3/uL Baso # (Auto) 0.0 (0.0-0.2) X10*3/uL Abs Immat Gran (auto) 0.02 (0.00-0.03) X10*3/uL Absolute Neuts (auto) 5.0 (2.0-8.3) x10*3/uL Absolute Nucleated RBC 0.000 (0.0-0.012) X10*3/uL Nucleated RBC % (auto) 0.0 (0.0-0.2) /100WBC Sodium 140 (135-145) mmol/L Potassium 4.0 (3.3-5.1) mmol/L Chloride 107 (96-108) mmol/L Carbon Dioxide 28 (22-29) mmol/L Anion Gap 9 L (12-20) BUN 15 (9-16) mg/dL Creatinine 1.73 H (0.5-1.4) mg/dL Estim Creat Clear Calc 31.8 Estimated GFR 29 Random Glucose 89 (60-115) mg/dL Calcium 9.3 (8.4-10.2) mg/dL Troponin I High Sens 9.1 (<3.5-17.0) ng/L C-Reactive Protein 0.19 (< or = 0.50) mg/dL Urine Color Yellow Urine Appearance Clear Urine pH 6.0 (5.0-9.0) Ur Specific [place] <= 1.005 (1.005-1.025) Urine Protein 30 (1+) H (Neg-Trace) mg/dL Urine Glucose (UA) Negative (Negative) mg/dL Urine Ketones Negative (Negative) mg/dL Urine Blood Negative (Negative) Urine Nitrite Negative (Negative) Ur Leukocyte Esterase Negative (Negative) Urine RBC 0-2 (0-2) /HPF Urine WBC 0-5 (0-5) /HPF Ur Squamous Epith Cells 3-5 (0-2) /HPF Urine Bacteria None Seen (None Seen) Hyaline Casts 0-2 (0-2) /LPF Influenza Type A (PCR) NEGATIVE (Negative) Influenza Type B (PCR) NEGATIVE (Negative) RSV RNA Qual (PCR) NEGATIVE (Negative) SARS-CoV-2 RNA (RT-PCR) NEGATIVE (Negative) Discharge Plan Discharge Clinical Impression: Abnormal auditory perception Patient Disposition: Home, Self-Care Additional Instructions: I do not have a very good idea about what is causing these episodes you have been experiencing. I am somewhat reassured by the testing we have done today. The CT scan saw nodules on your parotid glands and your thyroid gland and they recommend ultrasounds to follow up on these findings. However there is nothing else on the CT scans to explain your symptoms and I do not think these nodules are related to your symptoms. Please continue to do your best to keep yourself well hydrated. Drink a lot of fluids. Please contact Dr. Harris's office in the morning to set up a prompt follow up appointment. Return to the emergency room if significantly worse. Prescriptions: No Action metoprolol tartrate 25 mg tablet 12.5 mg PO BID atorvastatin 10 mg tablet 10 mg PO DAILY clotrimazole 1 % cream topical BID gabapentin 300 mg capsule 300 mg PO BID PRN (Reason: pain) Referrals: Wali Harris MD [Primary Care Provider] - (Episodes of abnormal auditory phenomenon) Interventions: ED Discharge Assessment Last Done: 04/29/24 16:40 Discharge Date/Time: 04/29/24 16:41 Print Language: Nepali
[2024-04-29 10:04] LABS: Anion Gap 9 (12-20); Blood Urea Nitrogen 15 mg/dL (9-16); Calcium 9.3 mg/dL (8.4-10.2); Carbon Dioxide 28 mmol/L (22-29); Chloride 107 mmol/L (96-108); Creatinine Clr Calc Pharmacy 31.8; Estimated Glomerular Filt Rate 29; Glucose Random 89 mg/dL (60-115); Sodium 140 mmol/L (135-145)
[2024-04-29 10:39] LABS: Influenza A PCR NEGATIVE (Negative); Influenza B PCR NEGATIVE (Negative); Resp Syncy Virus RNA Qual PCR NEGATIVE (Negative); SARS COV2 PCR INHOUSE NEGATIVE (Negative)
[2024-04-29 11:56] VITALS: BP 165/66; PULSE 53; RESP 14; TEMP 36.6; O2SAT 98
[2024-04-29 13:58] VITALS: BP 146/58; PULSE 51; RESP 14; TEMP 36.6; O2SAT 97
[2024-04-29 14:14] LABS: C Reactive Protein 0.19 mg/dL (< or = 0.50)
[2024-04-29 14:16] LABS: Troponin-I High Sensitivity 9.1 ng/L (<3.5-17.0)
[2024-04-29 16:40] VITALS: BP 153/82; PULSE 72; RESP 16; TEMP 36.7; O2SAT 96
== END 2024-04-29 16:41 | disposition home or self-care (01) ==
PROVIDERS: Emergency Provider Emergency Medicine; PCP Internal Medicine
DX: H93.291 Other abnormal auditory perceptions, right ear (principal); M54.2 Cervicalgia; R00.2 Palpitations; I10 Essential (primary) hypertension; Z03.818 Encounter for observation for suspected exposure to other biological agents ruled out
CPT/HCPCS: 0241U; 36415; 70450; 70490; 80048; 81001; 84484; 85025; 86140; 93005; 99284

== ENCOUNTER → 2024-04-29 09:05 | Outpatient (BNV) | payer MEDICARE, SELFPAY | PROVIDERS: Emergency Provider Emergency Medicine; PCP Internal Medicine; Visit Provider Internal Medicine Cardiovascular Disease | DX: R00.2 Palpitations (principal) | CPT/HCPCS: 93010 ==

== ENCOUNTER 2024-05-27 13:55 | Emergency (ER) | payer MEDICARE, SELFPAY ==
--- NOTE | ~2024-05-27 | CT_ITS ---
EXAMINATION: CT HEAD WITHOUT CONTRAST CLINICAL INFORMATION: Dizziness COMPARISON: None available. TECHNIQUE: Contiguous axial imaging was performed from the skull base to vertex without intravenous administration of contrast. This CT examination was performed using dose optimization techniques as appropriate, variously including the following: *Automated exposure control *Adjustment of mA and/or kV according to patient size (this includes techniques or standardized protocols for targeted exams where dose is matched to indication/reason for exam; i.e. extremities or head) *Use of iterative reconstruction technique DLP: 695 mGy-cm FINDINGS: The ventricles and sulci are normal in size and configuration. No acute hemorrhage, mass effect or shift is evident. Whitt-white differentiation is maintained. In the posterior fossa, the brainstem, cerebellum and fourth ventricle image normally. A calcified 9 mm extra-axial dural-based right frontal mass likely reflects an incidental meningioma. The orbits and calvarium are intact. The paranasal sinuses and mastoid air cells are well pneumatized and clear. CT/CT head/brain wo IV con IMPRESSION: 1. No acute hemorrhage, mass effect or shift. 2. Incidental 9 mm calcified right frontal meningioma. Electronically signed by: Nelson Posada MD 05/27/2024 02:56 PM [facility]
[2024-05-27 14:10] VITALS: BP 157/76; PULSE 68; RESP 16; TEMP 36.7; O2SAT 98; BMI 28.9
--- NOTE | 2024-05-27 14:15 | ECG_ITS ---
Test Reason : SYNCOPY Blood Pressure : / mmHG Vent. Rate : 066 BPM Atrial Rate : 066 BPM P-R Int : 192 ms QRS Dur : 144 ms QT Int : 468 ms P-R-T Axes : 050 -40 069 degrees QTc Int : 490 ms Sinus rhythm with Premature atrial complexes Left axis deviation Left bundle branch block Abnormal ECG When compared with ECG of 29-APR-2024 09:02, Premature atrial complexes are now Present Referred By: Minh Chapman Electronically Signed By:ADAM DUKES MD
--- NOTE | 2024-05-27 14:16 | ED.GENADULT ---
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, hypertension was seen here on 04/29 for tinnitus in the ear CT scan of the head and C-spine was negative comes here for similar complaints with increased vertiginous feeling especially when she moves her head to the right side or lower down the head patient has seen her PCP prescribed gabapentin plan to see ENT specially Related Data Home Medications ?Medication ?Instructions ?Recorded ?Confirmed atorvastatin 10 mg tablet 10 mg PO DAILY 01/04/21 03/25/21 clotrimazole 1 % topical cream appl topical BID 01/04/21 03/25/21 gabapentin 300 mg capsule 300 mg PO BID PRN pain 01/04/21 03/25/21 metoprolol tartrate 25 mg tablet 12.5 mg PO BID 01/04/21 03/25/21 Previous Rx's ?Medication ?Instructions ?Recorded meclizine 12.5 mg tablet 12.5 mg PO TID PRN dizziness #20 05/27/24 tabs Allergies Allergy/AdvReac Type Severity Reaction Status Date / Time No Known Allergies Allergy Unknown Verified 05/27/24 14:13 Review of Systems Review of Systems: Yes all other systems are reviewed and are negative [facility] Past Medical History Medical History Parastomal hernia Complication of external stoma of gastrointestinal tract Morbid obesity Hypertension Family History Family History Father Metastatic cancer Social History Social History Alcohol intake: never Patient Tobacco Use Status: Current everyday Tobacco user Advance Directives: No Advance Directives Information Provided: Yes Do you have a plan to hurt others: No Plan Physical Exam ED Vital Signs: Vital Signs - 24 hr 05/27/24 14:10 05/27/24 20:58 05/27/24 21:52 Temperature 98.1 F 97.8 F 97.8 F Pulse Rate 68 52 52 Respiratory Rate 16 20 20 Blood Pressure 157/76 H 162/88 H 162/88 H Pulse Oximetry 98 98 98 Oxygen Delivery Method Room Air Room Air Room Air BMI result Body Mass Index 28.9 Appearance: Alert. Oriented X3. No acute distress. Obese Eyes: PERRLA, No Nystagmus ENT: Pharynx normal. Oral Mucosa moist Neck: Normal inspection. Neck supple. CVS: Normal heart rate and rhythm. Pulses normal. Respiratory: No respiratory distress. Equal air entry bilateral, no wheezing/rales/rhonchi Abdomen: Soft and nontender. Bowel sounds are present, no mass palpable, no CVA tenderness Skin: Skin warm and dry. Normal skin color. Normal skin turgor. Extremities: No lower extremity edema. No calf tenderness Neuro: Oriented X 3. No motor deficit. No sensory deficit.No cerebellar signs , cranial nerves II-XII intact Course Course Course Narrative: RME: Done by PA for dizziness and near syncope. Patient denies any loss of consciousness. EKG labs ordered. NIH score is 0. Negative for signs of stroke. Medications Administered Discontinued Medications Generic Name Dose Route Start Last Admin Trade Name Freq PRN Reason Stop Dose Admin Meclizine HCl 12.5 mg 05/27/24 21:34 05/27/24 21:51 Meclizine Hcl 12.5 Mg Tablet PO 05/27/24 21:35 12.5 mg ONCE ONE Administration Medical Decision Making Medical Decision Making [facility] Narrative: Patient with benign positional vertiginous feeling for last 3 month advised meclizine advised to follow with ENT as scheduled Lab Data [facility] Lab Attestation statement: I reviewed the patient's lab results. 05/27/24 14:31 05/27/24 14:31 Labs: Lab Results 05/27/24 Range/Units 14:31 WBC 7.2 (4.8-10.8) X10*3/uL RBC 4.02 L (4.20-5.50) X10*6/uL Hgb 12.1 (12.0-16.0) g/dl Hct 38.0 (37.0-47.0) % MCV 94.5 (80.0-98.0) fL MCH 30.1 (27.0-33.0) pg MCHC 31.8 (31.0-35.0) g/dl RDW 12.1 (11.0-16.0) % Plt Count 166 (160-400) X10*3/uL MPV 9.6 (9.4-12.3) fL Immature Gran % (Auto) 0.6 H (0.0-0.4) % Neut % (Auto) 72.5 (45-73) % Lymph % (Auto) 18.3 L (20-40) % [place] % (Auto) 6.4 (2-11) % Eos % (Auto) 1.5 (0-4) % Baso % (Auto) 0.7 (0-2) % Lymph # (Auto) 1.3 (1.2-4.9) X10*3/uL [place] # (Auto) 0.5 (0.1-1.2) X10*3/uL Eos # (Auto) 0.1 (0.0-0.4) X10*3/uL Baso # (Auto) 0.1 (0.0-0.2) X10*3/uL Abs Immat Gran (auto) 0.04 H (0.00-0.03) X10*3/uL Absolute Neuts (auto) 5.2 (2.0-8.3) x10*3/uL Absolute Nucleated RBC 0.000 (0.0-0.012) X10*3/uL Nucleated RBC % (auto) 0.0 (0.0-0.2) /100WBC PT 11.8 (10.9-12.4) SEC INR 1.0 (0.9-1.1) APTT 32.1 (26.0-36.8) SEC Sodium 141 (135-145) mmol/L Potassium 4.4 (3.3-5.1) mmol/L Chloride 113 H (96-108) mmol/L Carbon Dioxide 23 (22-29) mmol/L Anion Gap 9 L (12-20) BUN 17 H (9-16) mg/dL Creatinine 1.54 H (0.5-1.4) mg/dL Estim Creat Clear Calc 36.0 Estimated GFR 33 Random Glucose 156 H (60-115) mg/dL Calcium 8.8 (8.4-10.2) mg/dL Magnesium 2.1 (1.6-2.6) mg/dL Total Bilirubin 0.3 (0.0-1.0) mg/dL AST 37 H (5-31) U/L ALT 24 (0-31) U/L Alkaline Phosphatase 59 (39-117) U/L Troponin I High Sens 9.1 (<3.5-17.0) ng/L Total Protein 6.7 (6.5-8.0) g/dL Albumin 3.8 (3.5-5.0) g/dL Independent Interpretation I performed an independent interpretation of an: CT Scan Radiology Impression Discussion of test interpretation with radiology: I have reviewed the radiologist's reading. Radiologist Impression: No acute Discharge Plan Discharge Clinical Impression: Benign paroxysmal positional vertigo Patient Disposition: Home, Self-Care Instructions: Benign Paroxysmal Positional Vertigo (ED) Additional Instructions: Care and cautions as advised Meclizine 1 tablet every 8 hours as needed for severe dizziness Follow up with ENT as scheduled Prescriptions: New meclizine 12.5 mg tablet 12.5 mg PO TID PRN (Reason: dizziness) Qty: 20 0RF No Action metoprolol tartrate 25 mg tablet 12.5 mg PO BID atorvastatin 10 mg tablet 10 mg PO DAILY clotrimazole 1 % cream topical BID gabapentin 300 mg capsule 300 mg PO BID PRN (Reason: pain) Interventions: ED Discharge Assessment Last Done: 05/27/24 21:52 Discharge Date/Time: 05/27/24 21:52 Print Language: Greek
[2024-05-27 14:37] LABS: MANUAL DIFF FLAG NO
[2024-05-27 14:43] LABS: Basophils Absolute Auto 0.1 X10*3/uL (0.0-0.2); Basophils Percent Auto 0.7 % (0-2); Eosinophils Absolute Auto 0.1 X10*3/uL (0.0-0.4); Eosinophils Percent Auto 1.5 % (0-4); Hemoglobin 12.1 g/dl (12.0-16.0); Imm Gran Abs Auto 0.04 X10*3/uL (0.00-0.03); Imm Gran Pct Auto 0.6 % (0.0-0.4); Lymphocytes Absolute Auto 1.3 X10*3/uL (1.2-4.9); Lymphocytes Percent Auto 18.3 % (20-40); Mean Corpuscular HGB Conc 31.8 g/dl (31.0-35.0); Mean Corpuscular Hemoglobin 30.1 pg (27.0-33.0); Mean Corpuscular Volume 94.5 fL (80.0-98.0); Mean Platelet Volume 9.6 fL (9.4-12.3); Monocytes Absolute Auto 0.5 X10*3/uL (0.1-1.2); Monocytes Percent Auto 6.4 % (2-11); Neutrophils Absolute Auto 5.2 x10*3/uL (2.0-8.3); Neutrophils Percent Auto 72.5 % (45-73); Platelet Count 166 X10*3/uL (160-400); Red Blood Count 4.02 X10*6/uL (4.20-5.50); Red Cell Distribution Width 12.1 % (11.0-16.0); White Blood Count 7.2 X10*3/uL (4.8-10.8)
[2024-05-27 14:52] LABS: Alanine Aminotransferase 24 U/L (0-31); Albumin Level 3.8 g/dL (3.5-5.0); Alkaline Phosphatase 59 U/L (39-117); Anion Gap 9 (12-20); Aspartate Amino Transferase 37 U/L (5-31); Bilirubin Total 0.3 mg/dL (0.0-1.0); Blood Urea Nitrogen 17 mg/dL (9-16); Calcium 8.8 mg/dL (8.4-10.2); Carbon Dioxide 23 mmol/L (22-29); Chloride 113 mmol/L (96-108); Estimated Glomerular Filt Rate 33; Glucose Random 156 mg/dL (60-115); Magnesium 2.1 mg/dL (1.6-2.6); Potassium 4.4 mmol/L (3.3-5.1); Sodium 141 mmol/L (135-145); Total Protein 6.7 g/dL (6.5-8.0)
[2024-05-27 14:54] LABS: Prothrombin Time 11.8 SEC (10.9-12.4)
[2024-05-27 14:56] LABS: Partial Thromboplastin Time 32.1 SEC (26.0-36.8)
[2024-05-27 14:59] LABS: Troponin-I High Sensitivity 9.1 ng/L (<3.5-17.0)
[2024-05-27 20:58] VITALS: BP 162/88; PULSE 52; RESP 20; TEMP 36.6; O2SAT 98
[2024-05-27] MEDS: Meclizine HCl 12.5 MG TABLET PO (21:51)
[2024-05-27 21:52] VITALS: BP 162/88; PULSE 52; RESP 20; TEMP 36.6; O2SAT 98
== END 2024-05-27 21:52 | disposition home or self-care (01) ==
PROVIDERS: Physician Assistant; Emergency Provider Internal Medicine; PCP Internal Medicine
DX: H81.10 Benign paroxysmal vertigo, unspecified ear (principal); R29.700 NIHSS score 0; I49.1 Atrial premature depolarization; I44.7 Left bundle-branch block, unspecified; I10 Essential (primary) hypertension; F17.200 Nicotine dependence, unspecified, uncomplicated; Z79.899 Other long term (current) drug therapy
CPT/HCPCS: 36415; 70450; 80053; 83735; 84484; 85025; 85610; 85730; 93005; 99283; 99284

== ENCOUNTER → 2024-05-27 14:15 | Outpatient (BNV) | payer MEDICARE, SELFPAY | PROVIDERS: PCP Internal Medicine; Visit Provider Internal Medicine Cardiovascular Disease | DX: R55 Syncope and collapse (principal) | CPT/HCPCS: 93010 ==

== ENCOUNTER 2024-07-26 22:25 | Emergency (ER) | payer MEDICARE, SELFPAY ==
--- NOTE | ~2024-07-26 | XR_ITS ---
CLINICAL HISTORY: pain 3 view left ankle Comparison: None Findings: Obliquely oriented distal fibular meta diaphyseal fracture. Fracture appears to extend to the lateral malleolus. Calcaneal spurring. Enthesophytes of the Achilles tendon insertion. No significant loss of joint space, osteophytes, or erosions. No radiopaque foreign body. Prominent lateral ankle soft tissue edema. IMPRESSION: Distal fibular fracture. This document has been electronically signed by: Mihai Bae MD on 07/27/2024 00:11:13
[2024-07-26 22:55] VITALS: BP 148/82; PULSE 82; RESP 16; TEMP 36.8; O2SAT 97; BMI 32.3
--- NOTE | 2024-07-26 23:02 | ECG_ITS ---
Test Reason : FALL Blood Pressure : */* mmHG Vent. Rate : 73 BPM Atrial Rate : 73 BPM P-R Int : 188 ms QRS Dur : 154 ms QT Int : 432 ms P-R-T Axes : 55 -46 79 degrees QTcB Int : 475 ms Normal sinus rhythm with sinus arrhythmia Left axis deviation Left bundle branch block Abnormal ECG When compared with ECG of 27-May-2024 14:17, Premature atrial complexes are no longer Present Referred By: Generic ED Physician Electronically Signed By: Emerson Weir
[2024-07-26 23:41] LABS: MANUAL DIFF FLAG NO
[2024-07-26 23:42] LABS: Basophils Absolute Auto 0.1 X10*3/uL (0.0-0.2); Basophils Percent Auto 0.5 % (0-2); Eosinophils Absolute Auto 0.1 X10*3/uL (0.0-0.4); Eosinophils Percent Auto 1.2 % (0-4); Hematocrit 38.6 % (37.0-47.0); Hemoglobin 12.6 g/dl (12.0-16.0); Imm Gran Abs Auto 0.04 X10*3/uL (0.00-0.03); Imm Gran Pct Auto 0.4 % (0.0-0.4); Lymphocytes Absolute Auto 1.2 X10*3/uL (1.2-4.9); Lymphocytes Percent Auto 12.2 % (20-40); Mean Corpuscular HGB Conc 32.6 g/dl (31.0-35.0); Mean Corpuscular Hemoglobin 29.5 pg (27.0-33.0); Mean Corpuscular Volume 90.4 fL (80.0-98.0); Mean Platelet Volume 9.4 fL (9.4-12.3); Monocytes Absolute Auto 0.7 X10*3/uL (0.1-1.2); Monocytes Percent Auto 7.1 % (2-11); Neutrophils Absolute Auto 7.8 x10*3/uL (2.0-8.3); Neutrophils Percent Auto 78.6 % (45-73); Platelet Count 181 X10*3/uL (160-400); Red Blood Count 4.27 X10*6/uL (4.20-5.50); Red Cell Distribution Width 12.5 % (11.0-16.0); White Blood Count 9.9 X10*3/uL (4.8-10.8)
--- NOTE | 2024-07-26 23:52 | PC.NURSE ---
Pt a&ox4, no signs of distress. Pt reports 9/10 left ankle pain after falling at home due to vertigo episode which as now resolved. Pt denies head strike and loc. Pts at bedside Pt denies being on blood thinners Plan of care ongoing.
--- NOTE | 2024-07-26 23:54 | MHC.EDTECH ---
Assumed care of Pt at 2300. 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 Call vasquez within reach.
[2024-07-26 23:56] LABS: Alanine Aminotransferase 22 U/L (0-31); Albumin Level 4.1 g/dL (3.5-5.0); Alkaline Phosphatase 66 U/L (39-117); Anion Gap 10 (12-20); Aspartate Amino Transferase 32 U/L (5-31); Bilirubin Total 0.4 mg/dL (0.0-1.0); Blood Urea Nitrogen 19 mg/dL (9-16); Calcium 8.7 mg/dL (8.4-10.2); Carbon Dioxide 26 mmol/L (22-29); Chloride 113 mmol/L (96-108); Creatinine Clr Calc Pharmacy 38.4; Estimated Glomerular Filt Rate 34; Glucose Random 100 mg/dL (60-115); Potassium 3.9 mmol/L (3.3-5.1); Sodium 145 mmol/L (135-145); Total Protein 7.5 g/dL (6.5-8.0)
[2024-07-27 00:03] LABS: Troponin-I High Sensitivity 13.8 ng/L (<3.5-17.0)
--- NOTE | 2024-07-27 02:23 | ED.FALL ---
HPI - Fall General Chief Complaint: Fall Stated Complaint: bilat ankle swelling s/p fall Time Seen by Provider: 07/27/24 02:22 Source: patient Limitations: no limitations History of Present Illness ED Provider: Miriam Diego PA-C HPI Narrative: 74-year-old female with a history of hypertension, morbid obesity, parastomal hernia with a complication that necessitated ileostomy formation, vertigo, presents with left ankle pain. Patient states she has ?dizzy spells?, tonight while going to use the bathroom, she felt as if she was going to pass out, and subsequently collapsed onto the floor. There was no head strike, no complete loss of consciousness. Patient complains of left ankle pain since the fall. Patient denies preceding palpitations, chest pain, shortness of breath. To note, patient is being followed by ENT, she has an outpatient MRI pending for her vertigo symptoms. Related Data Home Medications ?Medication ?Instructions ?Recorded ?Confirmed atorvastatin 10 mg tablet 10 mg PO DAILY 01/04/21 03/25/21 clotrimazole 1 % topical cream appl topical BID 01/04/21 03/25/21 gabapentin 300 mg capsule 300 mg PO BID PRN pain 01/04/21 03/25/21 metoprolol tartrate 25 mg tablet 12.5 mg PO BID 01/04/21 03/25/21 Previous Rx's ?Medication ?Instructions ?Recorded meclizine 12.5 mg tablet 12.5 mg PO TID PRN dizziness #20 05/27/24 tabs Allergies Allergy/AdvReac Type Severity Reaction Status Date / Time No Known Allergies Allergy Unknown Verified 07/26/24 23:01 Review of Systems Review of Systems: Yes all other systems are reviewed and are negative Constitutional: Constitutional: Denies fatigue and Denies fever(s) ENT: Reports vertigo and Reports dizziness Cardiovascular: Cardiovascular: Denies chest pain, Denies irregular heart rhythm, Denies palpitations and Denies dyspnea Respiratory: Respiratory: Denies dyspnea Gastrointestinal: Gastrointestinal: Denies abdominal pain, Denies diarrhea, Denies nausea and Denies vomiting Musculoskeletal: Musculoskeletal: Reports arthralgias and Reports joint swelling Neurologic: Reports vertigo and Reports dizziness Endocrine: Endocrine: Denies fatigue and Denies palpitations PMF Past Medical History Attestation statement: The following information was validated with the patient. Medical History Parastomal hernia Complication of external stoma of gastrointestinal tract Morbid obesity Hypertension Family History Family History Father Metastatic cancer Social History Social History Alcohol intake: never Patient Tobacco Use Status: Current everyday Tobacco user Smoked in Last 30 Days: Yes Use of substances other than those prescribed or required for medical reasons: No Advance Directives: No Advance Directives Information Provided: Yes Do you have a plan to hurt others: No Plan Physical Exam Vital Signs: Vital Signs: Last Vital Signs Temp 98.2 F 07/26/24 22:55 Pulse 82 07/26/24 22:55 Resp 16 07/26/24 22:55 BP 148/82 H 07/26/24 22:55 Pulse Ox 97 07/26/24 22:55 O2 Del Method Room Air 07/26/24 22:55 BMI result Body Mass Index 32.3 Const: Other: Alert well-appearing Orientation/consciousness: patient oriented x3 Resp: Effort & Inspection: normal respiratory effort Cardio: Other: Normal peripheral perfusion Skin: Other: Warm dry no rash Neuro: General: patient oriented x3, no focal motor deficits and CN's II-XI intact bilaterally Extrem: Other: Minimal flexion and extension from the left ankle secondary to pain, swelling noted along lateral aspect of the ankle Psych: Other: Calm cooperative Medical Decision Making Medical Decision Making MDM Narrative: 74-year-old female with a history of hypertension, morbid obesity, parastomal hernia with a complication that necessitated ileostomy formation, vertigo, presents with left ankle pain. Patient states she has ?dizzy spells?, tonight while going to use the bathroom, she felt as if she was going to pass out, and subsequently collapsed onto the floor. There was no head strike, no complete loss of consciousness. Patient complains of left ankle pain since the fall. Patient denies preceding palpitations, chest pain, shortness of breath. To note, patient is being followed by ENT, she has an outpatient MRI pending for her vertigo symptoms. Problem: Known vertigo History: Per patient I have considered the following differential diagnoses: Fracture, dislocation, sprain, contusion Plan: X-ray obtained from triage, she has a fracture. We will put her in a walking boot she can follow up with her orthopedic surgeon; she has fracture of the right ankle in the past. Labs: No leukocytosis, not anemic, no electrolyte abnormality, creatinine at baseline, 1st troponin 13.8 we will obtain a delta 28 EKG: Normal sinus rhythm, rate of 73 no ischemic changes no ectopy left ankle xray: Findings: Obliquely oriented distal fibular meta diaphyseal fracture. Fracture appears to extend to the lateral malleolus. Calcaneal spurring. Enthesophytes of the Achilles tendon insertion. No significant loss of joint space, osteophytes, or erosions. No radiopaque foreign body. Prominent lateral ankle soft tissue edema. IMPRESSION: Distal fibular fracture. This document has been electronically signed by: Mihai Bae MD on 07/27/2024 00:11:13 Lab Data 07/26/24 23:37 07/26/24 23:37 Labs: Lab Results 07/26/24 07/27/24 Range/Units 23:37 02:52 WBC 9.9 (4.8-10.8) X10*3/uL RBC 4.27 (4.20-5.50) X10*6/uL Hgb 12.6 (12.0-16.0) g/dl Hct 38.6 (37.0-47.0) % MCV 90.4 (80.0-98.0) fL MCH 29.5 (27.0-33.0) pg MCHC 32.6 (31.0-35.0) g/dl RDW 12.5 (11.0-16.0) % Plt Count 181 (160-400) X10*3/uL MPV 9.4 (9.4-12.3) fL Immature Gran % (Auto) 0.4 (0.0-0.4) % Neut % (Auto) 78.6 H (45-73) % Lymph % (Auto) 12.2 L (20-40) % [place] % (Auto) 7.1 (2-11) % Eos % (Auto) 1.2 (0-4) % Baso % (Auto) 0.5 (0-2) % Lymph # (Auto) 1.2 (1.2-4.9) X10*3/uL [place] # (Auto) 0.7 (0.1-1.2) X10*3/uL Eos # (Auto) 0.1 (0.0-0.4) X10*3/uL Baso # (Auto) 0.1 (0.0-0.2) X10*3/uL Abs Immat Gran (auto) 0.04 H (0.00-0.03) X10*3/uL Absolute Neuts (auto) 7.8 (2.0-8.3) x10*3/uL Absolute Nucleated RBC 0.000 (0.0-0.012) X10*3/uL Nucleated RBC % (auto) 0.0 (0.0-0.2) /100WBC Sodium 145 (135-145) mmol/L Potassium 3.9 (3.3-5.1) mmol/L Chloride 113 H (96-108) mmol/L Carbon Dioxide 26 (22-29) mmol/L Anion Gap 10 L (12-20) BUN 19 H (9-16) mg/dL Creatinine 1.50 H (0.5-1.4) mg/dL Estim Creat Clear Calc 38.4 Estimated GFR 34 Random Glucose 100 (60-115) mg/dL Calcium 8.7 (8.4-10.2) mg/dL Total Bilirubin 0.4 (0.0-1.0) mg/dL AST 32 H (5-31) U/L ALT 22 (0-31) U/L Alkaline Phosphatase 66 (39-117) U/L Troponin I High Sens 13.8 D 28.1 H D (<3.5-17.0) ng/L Total Protein 7.5 (6.5-8.0) g/dL Albumin 4.1 (3.5-5.0) g/dL Discharge Plan Discharge Clinical Impression: Closed fracture of left distal fibula Patient Disposition: Home, Self-Care Instructions: Leg Fracture (ED) Additional Instructions: You sustained a fibular fracture. Keep the walking boot in place until you follow up with the orthopedic service, call tomorrow to make an appointment. Your screening labs were normal. You can use [id number] Tylenol 1000 mg taken every 8 hours, alternated with [id number] ibuprofen 600 mg taken every 6 hours with food. For your pain. The gabapentin that you have will also help with your pain. Prescriptions: No Action meclizine 12.5 mg tablet 12.5 mg PO TID PRN (Reason: dizziness) Qty: 20 0RF metoprolol tartrate 25 mg tablet 12.5 mg PO BID atorvastatin 10 mg tablet 10 mg PO DAILY clotrimazole 1 % cream topical BID gabapentin 300 mg capsule 300 mg PO BID PRN (Reason: pain) Print Language: Bangladeshi
[2024-07-27 03:20] LABS: Troponin-I High Sensitivity 28.1 ng/L (<3.5-17.0)
[2024-07-27 03:47] VITALS: BP 140/68; PULSE 80; RESP 16; TEMP 37; O2SAT 98
[2024-07-27 04:03] VITALS: BP 140/68; PULSE 80; RESP 16; TEMP 37; O2SAT 98
== END 2024-07-27 04:23 | disposition home or self-care (01) ==
PROVIDERS: Physician Assistant Medical; Emergency Provider Internal Medicine; PCP Internal Medicine
DX: S89.302A Unspecified physeal fracture of lower end of left fibula, initial encounter for closed fracture (principal); W19.XXXA Unspecified fall, initial encounter; R42 Dizziness and giddiness; I10 Essential (primary) hypertension; F17.200 Nicotine dependence, unspecified, uncomplicated; Y93.9 Activity, unspecified; Y92.019 Unspecified place in single-family (private) house as the place of occurrence of the external cause; Y99.9 Unspecified external cause status
CPT/HCPCS: 36415; 73610; 80053; 84484; 85025; 93005; 99283; 99284; 99285

== ENCOUNTER → 2024-07-26 23:02 | Outpatient (BNV) | payer MEDICARE, SELFPAY | PROVIDERS: Emergency Provider Internal Medicine; PCP Internal Medicine; Visit Provider Internal Medicine Cardiovascular Disease | DX: R94.31 Abnormal electrocardiogram [ECG] [EKG] (principal) | CPT/HCPCS: 93010 ==

== ENCOUNTER → 2024-07-26 23:20 | Outpatient (BNV) | payer MEDICARE, SELFPAY | PROVIDERS: PCP Internal Medicine; Visit Provider Radiology Diagnostic Radiology | DX: M25.572 Pain in left ankle and joints of left foot (principal) | CPT/HCPCS: 73610 ==

== ENCOUNTER 2024-08-01 14:44 | Outpatient (AMB) | payer MEDICARE, SELFPAY ==
--- NOTE | 2024-08-01 15:05 | MHC.OFFVIS ---
Intake Visit Reasons: FC - Left distal fibula fx, DOI 07/26/24 Intake Note: Audra is a 74 year old female who presents today with a walker and short walking boot for a evaluation of her left fibula fx, DOI 07/27/24. Patient reports she felt she had a ?dizzy spells?, at night while going to use the bathroom. She passed out and collapsed onto the floor. Patient states that she is having pain on the lateral aspect of the ankle and foot and she notices bruising. She also expresses that she noticed some bruising on her right calf. There is bruising on the left 2nd,3rd and 4th metatarsal. Allergies No Known Allergies Allergy (Unknown, Verified 08/01/24 15:08) HPI HPI FC - Left distal fibula fx, DOI 07/26/24: Details: Ms. Patterson is a 74 year old female who presents today with a walker and short walking boot for a evaluation of her left fibula fx, DOI 07/27/24. Patient reports she felt she had a ?dizzy spells?, at night while going to use the bathroom. She passed out and collapsed onto the floor. Patient states that she is having pain on the lateral aspect of the ankle and foot and she notices bruising. She also expresses that she noticed some bruising on her right calf. There is bruising on the left 2nd,3rd and 4th metatarsal. [facility] Medical History Parastomal hernia Complication of external stoma of gastrointestinal tract Morbid obesity Hypertension Family History Father Metastatic cancer Social History (Updated 08/01/24 @ 15:09 by Emilie Nance) Alcohol intake: current Alcohol intake frequency: holidays/special occasions only Patient Tobacco Use Status: Current everyday Tobacco user Cigarettes Per Day: 5 Current occupational status: retired and disabled Review of Systems Const All systems reviewed & are unremarkable except as noted in HPI and below Physical Exam Const General: cooperative, healthy appearing and no acute distress Resp Effort & Inspection: normal respiratory effort and able to speak in complete sentences Cardio Rate: regular rate Peripheral pulses: Peripheral pulses 2+ throughout Skin Lesions: no lesions Rashes: no rashes Extrem Other: Left lateral malleolus moderate edema accompanied by tenderness to palpation. Resolving ecchymosis at the base of the toes and lateral aspect of the foot. Able to dorsiflex and plantar flex. Sensation is diminished but is at baseline due to neuropathy. Pedal pulse intact. Office Procedures AMB Fracture Care Fracture Billing Code: Fracture Billing Code Assessment & Plan Assessment & Plan (1) Fracture of distal end of left fibula: Code(s): S82.832A - Other fracture of upper and lower end of left fibula, initial encounter for closed fracture Category: Medical Plan Ms. Patterson is a 74 year old female who presents today with a walker and short walking boot for a evaluation of her left fibula fx, DOI 07/27/24. Patient reports she felt she had a ?dizzy spells?, at night while going to use the bathroom. She passed out and collapsed onto the floor. Patient states that she is having pain on the lateral aspect of the ankle and foot and she notices bruising. She also expresses that she noticed some bruising on her right calf. There is bruising on the left 2nd,3rd and 4th metatarsal. While the office today the patient was placed into a tall walking boot which is appropriate for a distal fibular fracture. I recommended physical therapy to work on gentle range of motion with the patient. She will follow up in 4 weeks with repeat x-rays, sooner if needed. X-rays obtained in the office today of the left ankle redemonstrate left distal fibular fracture with no displacement Orders: Orders PT Evaluation and Treatment Today S82.832A - Other fracture of upper and lower end of left fibula, initial encounter for closed fracture Coding Level of Care Code New Pt Level 4 (97117) Diagnoses Fracture of distal end of left fibula S82.832A CPT Codes Fracture Care - Fracture Billing Code: Fracture Billing Code ([id number])
== END 2024-08-01 15:29 | disposition home or self-care (01) ==
PROVIDERS: PCP Internal Medicine; Visit Provider Physician Assistant
DX: S82.892A Other fracture of left lower leg, initial encounter for closed fracture (principal)
CPT/HCPCS: 99203

== ENCOUNTER → 2024-08-01 14:44 | Outpatient (BNVA) | payer MEDICARE, SELFPAY | PROVIDERS: PCP Internal Medicine; Visit Provider Physician Assistant | DX: S82.832A Other fracture of upper and lower end of left fibula, initial encounter for closed fracture (principal) | CPT/HCPCS: 99202 ==

== ENCOUNTER 2024-08-09 10:45 | Outpatient (RCR) | payer MEDICARE, SELFPAY ==
--- NOTE | 2024-08-09 11:55 | MHC.PT.EP ---
[facility] [place] [facility] [place] [facility] [place] [facility] [address] Aakash Chou [address] [phone] F: [phone] F: [phone] F: [phone] F: [phone] Physical Therapy Plan of Care Date of Evaluation: 08/09/24 Date of Surgery: n/a Diagnosis: fx of distal end L fibula Assessment: Patient is a 74 year old female presenting to PT with complaints of pain in her L leg. Pt reports onset of pain began 07/26/2024 due to falling when she passed out. She presents today with impairments in pain, ankle ROM, ankle strength, gait mechanics. Pt's current occupation is retired/disabled, with baseline physical activities including ADLs, ambulating, stair negotiation. 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 Clinical presentation today is most consistent with signs and sx associated with L distal fibula fx and pt will benefit from skilled PT 2 week x 6 weeks to address the following problems and impairments noted upon evaluation: pain, ankle ROM, ankle strength, gait mechanics. These problems limit the patient with the following functional activities: ADLs, ambulating, stair negotiation. The prescribed treatment plan of care is medically necessary. Co-morbidities of gets dizziness spells and this causes her to pass out, ileostomy bag were identified and taken into considerations of plan of care. Pt was educated on HEP, role of PT, prognosis, POC. Frequency and Duration: The patient will be seen 2 x week x 6 weeks Short Term Goals: Pt will demonstrate improved ankle ROM to neutral for DF in 2 weeks. Pt will demonstrate L ankle MMT strength at least 3/5 in 3 weeks. Linoleum Installer Goals: Pt will demonstrate improved LEFI score by 9 points in 6 weeks for improved functional mobility. Pt will demonstrate ability to ambulate with LRD and good mechanics in 6 weeks for improved access to the community. Pt will demonstrate ability to negotiate stairs with min to no pain in 6 weeks for improved access to her home. Treatment Plan: Modalities to reduce pain, spasms and effusion. Manual therapy to restore motion and function. Therapeutic exercise to improve strength and flexibility. Neuromuscular re-education for posture and balance. Therapeutic activities to return to functional activities of daily living. Electronically signed by: Valarie Limon, PT, DPT, ATC Please sign and return to therapist. Thank you for your referral.
--- NOTE | 2024-09-19 10:46 | MHC.PT.DC ---
[facility] [place] Office [place] Office [place] Office [address] Aakash Chou [address] [phone] F: [phone] F: [phone] F: [phone] F: [phone] Physical Therapy Discharge Report Diagnosis: fx of distal end L fibula Date of Surgery: n/a Date of Evaluation: 08/09/24 Date of Discharge: 09/19/24 Treatments to Date: 1 Cancellations to Date: 4 No Shows to Date: 0 Discharge Status: Patient Elected to Stop Visit Non-compliance Discharge Summary: Pt cancelled all her follow ups and has not attended skilled PT since the eval >30 days ago so therefore to be d/c. Electronically signed by: Valarie Limon, PT, DPT, ATC Please sign and return to therapist. Thank you for your referral.
== END 2024-09-19 10:47 | disposition home or self-care (01) ==
LOC: HO.PTCHIC 10:45
PROVIDERS: PCP Internal Medicine; Visit Provider Physician Assistant
DX: S82.832A Other fracture of upper and lower end of left fibula, initial encounter for closed fracture (principal); X58.XXXA Exposure to other specified factors, initial encounter
CPT/HCPCS: 97110; 97161

== ENCOUNTER 2024-08-12 14:51 | Emergency (ER) | payer MEDICARE, SELFPAY ==
[2024-08-12 14:53] VITALS: BP 148/57; PULSE 85; RESP 18; TEMP 37; O2SAT 98
--- NOTE | 2024-08-12 14:54 | ED_ITS ---
HPI - General Adult General Chief complaint: Weakness Stated complaint: Dehydrated sent by croke Time Seen by Provider: 08/12/24 20:59 Source: patient Mode of arrival: ambulatory Limitations: no limitations History of Present Illness ED Provider: Dr. Pennie Trevino HPI narrative: Patient comes to the emergency room complaining of generalized malaise. Patient states that for about a week now she has noticed that she has been nauseous, muscle cramping. Patient states that she has noticed an increase in output in her ileostomy bag. Patient states that she has been URI symptoms lately. Patient denies any fever or chills, denies any significant coughing. Patient states that her PCP told her that she has COPD but she does not believe she does have it. Patient does not use oxygen at home. Related Data Home Medications ?Medication ?Instructions ?Recorded ?Confirmed atorvastatin 10 mg tablet 10 mg PO DAILY 01/04/21 03/25/21 clotrimazole 1 % topical cream appl topical BID 01/04/21 03/25/21 gabapentin 300 mg capsule 300 mg PO BID PRN pain 01/04/21 03/25/21 metoprolol tartrate 25 mg tablet 12.5 mg PO BID 01/04/21 03/25/21 Previous Rx's ?Medication ?Instructions ?Recorded meclizine 12.5 mg tablet 12.5 mg PO TID PRN dizziness #20 05/27/24 tabs Allergies Allergy/AdvReac Type Severity Reaction Status Date / Time No Known Allergies Allergy Unknown Verified 08/12/24 14:55 Review of Systems 2 Review of Systems: Constitutional : No Weight loss, No Fever, No Chills, No Night Sweats, complaining of fatigue, mild generalized malaise ENT/Mouth : No Hearing loss, No Ear Pain, complaining of mild Nasal Congestion, No Sinus Pain, No Hoarseness, No sore throat, complaining of mild Rhinorrhea, No Swallowing Difficulty Eyes: No Eye Pain, No Swelling, No Redness, No Foreign Body, No Discharge, No Vision Changes Cardiovascular : No Chest Pain, No SOB, No Dyspnea on Exertion, No Orthopnea, No Edema, No Palpitations Respiratory : No Cough, No Sputum, No Wheezing, No Smoke Exposure, No Dyspnea Gastrointestinal : No Nausea, No Vomiting, No Diarrhea, No Constipation, No abdominal Pain, No Hematochezia, No Melena Genitourinary : no irregular bleeding, No Dysuria, No Urinary Frequency, No Hematuria, No Urinary Incontinence, No Urgency, No Flank Pain, No Urinary Flow Changes, No Hesitancy Musculoskeletal : No joint pain, No Myalgias, No Joint Swelling Skin : No Skin Lesions, No rash Neuro : No Weakness, No Numbness, No Paresthesias, No Loss of Consciousness, No Dizziness, No Headache Psych : No Anxiety/Panic, No Depression, No SI/HI/AH/VH, No Social Issues, Heme/Lymph: No Bruising, No Bleeding,No Lymphadenopathy Endocrine : No Polyuria, No Polydipsia, No Temperature Intolerance [facility] Past Medical History Medical History Parastomal hernia Complication of external stoma of gastrointestinal tract Morbid obesity Hypertension Family History Family History Father Metastatic cancer Social History Social History (Updated 08/01/24 @ 15:09 by Emilie Nance) Alcohol intake: current Alcohol intake frequency: holidays/special occasions only Patient Tobacco Use Status: Current everyday Tobacco user Cigarettes Per Day: 5 Smoked in Last 30 Days: Yes Use of substances other than those prescribed or required for medical reasons: No Advance Directives: No Advance Directives Information Provided: No Do you have a plan to hurt others: No Plan Current occupational status: retired and disabled Physical Exam ED Vital Signs: Vital Signs - 24 hr 08/12/24 14:53 08/12/24 19:25 08/12/24 21:15 Temperature 98.6 F 98.4 F 97.8 F Pulse Rate 85 71 69 Respiratory Rate 18 20 18 Blood Pressure 148/57 H 137/60 128/72 Pulse Oximetry 98 97 96 Oxygen Delivery Method Room Air Room Air Room Air 08/12/24 22:07 08/12/24 22:08 08/12/24 22:08 Temperature Pulse Rate 65 66 71 Respiratory Rate Blood Pressure 160/62 H 163/77 H 152/72 H Pulse Oximetry Oxygen Delivery Method BMI result Body Mass Index 30.0 Const Other: Appearance: Alert. Oriented X3. No acute distress. Eyes: Pupils equal, round and reactive to light. ENT: Pharynx normal. Neck: Normal inspection. Neck supple. No lymph nodes noted. No crepitus CVS: Normal heart rate and rhythm. Pulses normal. Normal S1 and S2 Respiratory: No respiratory distress. Breath sounds normal. No Wheezing. No rales Abdomen: Soft and nontender. No rigidity. No distention. Skin: Skin warm and dry. Normal skin color. Normal skin turgor. Extremities: No lower extremity edema. No Lacerations. No Rash patient has a walking boot Neuro: Oriented X 3. No motor deficit. No sensory deficit. Moving all extremities. No slurred speech. CN 2 through 12 grossly intact Psych: calm, cooperative, normal affect Course Course Course Narrative: This is a Rapid Medical Exam performed in triage by Kasia Damon PA-C. Full HPI, ROS and PE to be performed by primary ED provider. 74yo F w/pmhx HTN, obesity, hernia presenting to the ED c/o dizziness/lightheadedness, UE cramps, fatigue, nausea, ROSE's x 1 week. States she is dehydrated, sent in by Dr Harris PE: amulating w/steady gait. nontoxic appearing, talking in complete sentences Plan: EKG, labs, UA Medications Administered Discontinued Medications Generic Name Dose Route Start Last Admin Trade Name Freq PRN Reason Stop Dose Admin Sodium Chloride 1,000 mls @ 999 mls/hr 08/12/24 21:08 08/12/24 21:28 Ns IVCONT 08/12/24 22:08 999 mls/hr .Q1H1M ONE Administration Medical Decision Making Medical Decision Making [facility] Narrative: My interpretation of labs: Patient's hematology is at baseline, chemistry shows a slightly bumped creatinine which is chronic for the patient and it is a baseline. Serology is positive for COVID. Patient denies any chest pain, no shortness of breath, on physical exam patient has completely clear lungs, oxygen saturation in the high 90s (98-99%) Discussed with the patient that she tested positive for COVID-19. Patient states she does not believe in it. I discussed with the patient to help her with her symptoms and considering that she has had increased ileostomy output, we will go ahead and give her fluids. Patient agrees with plan. Patient has been symptomatic for almost 1 week. PAxlovid would not be of any benefit to the patient. Respiratory lerner, patient is stable, no oxygen desaturations when ambulating to the bathroom Although patient has a boot leg, patient is able to ambulate well by herself, has good strength. Orthostatic vitals are negative Differential Diagnosis Differential Diagnoses: The differential diagnosis associated with the presentation includes (Dehydration, COVID) Lab Data MDM Lab Attestation statement: I reviewed the patient's lab results. 08/12/24 15:13 08/12/24 15:13 Labs: Lab Results 08/12/24 08/12/24 Range/Units 15:13 21:10 WBC 4.9 (4.8-10.8) X10*3/uL RBC 3.96 L (4.20-5.50) X10*6/uL Hgb 11.5 L (12.0-16.0) g/dl Hct 35.7 L (37.0-47.0) % MCV 90.2 (80.0-98.0) fL MCH 29.0 (27.0-33.0) pg MCHC 32.2 (31.0-35.0) g/dl RDW 13.1 (11.0-16.0) % Plt Count 199 (160-400) X10*3/uL MPV 9.3 L (9.4-12.3) fL Immature Gran % (Auto) 0.6 H (0.0-0.4) % Neut % (Auto) 51.4 (45-73) % Lymph % (Auto) 32.2 (20-40) % [place] % (Auto) 12.1 H (2-11) % Eos % (Auto) 3.1 (0-4) % Baso % (Auto) 0.6 (0-2) % Lymph # (Auto) 1.6 (1.2-4.9) X10*3/uL [place] # (Auto) 0.6 (0.1-1.2) X10*3/uL Eos # (Auto) 0.2 (0.0-0.4) X10*3/uL Baso # (Auto) 0.0 (0.0-0.2) X10*3/uL Abs Immat Gran (auto) 0.03 (0.00-0.03) X10*3/uL Absolute Neuts (auto) 2.5 (2.0-8.3) x10*3/uL Absolute Nucleated RBC 0.000 (0.0-0.012) X10*3/uL Nucleated RBC % (auto) 0.0 (0.0-0.2) /100WBC Sodium 144 (135-145) mmol/L Potassium 3.5 (3.3-5.1) mmol/L Chloride 111 H (96-108) mmol/L Carbon Dioxide 23 (22-29) mmol/L Anion Gap 14 (12-20) BUN 17 H (9-16) mg/dL Creatinine 1.48 H (0.5-1.4) mg/dL Estim Creat Clear Calc 37.6 Estimated GFR 35 Random Glucose 115 (60-115) mg/dL Calcium 8.5 (8.4-10.2) mg/dL Magnesium 2.1 (1.6-2.6) mg/dL Total Bilirubin 0.3 (0.0-1.0) mg/dL Direct Bilirubin 0.1 (0.0-0.5) mg/dL AST 35 H (5-31) U/L ALT 19 (0-31) U/L Alkaline Phosphatase 74 (39-117) U/L Troponin I High Sens 11.7 D (<3.5-17.0) ng/L Total Protein 7.3 (6.5-8.0) g/dL Albumin 3.7 (3.5-5.0) g/dL Urine Color Yellow Urine Appearance Clear Urine pH 6.0 (5.0-9.0) Ur Specific [place] 1.010 (1.005-1.025) Urine Protein 100 (2+) H (Neg-Trace) mg/dL Urine Glucose (UA) Negative (Negative) mg/dL Urine Ketones Negative (Negative) mg/dL Urine Blood Negative (Negative) Urine Nitrite Negative (Negative) Ur Leukocyte Esterase Negative (Negative) Urine RBC 0-2 (0-2) /HPF Urine WBC 0-5 (0-5) /HPF Ur Squamous Epith Cells 3-5 (0-2) /HPF Urine Bacteria Trace (None Seen) Hyaline Casts 0-2 (0-2) /LPF Influenza Type A (PCR) NEGATIVE (Negative) Influenza Type B (PCR) NEGATIVE (Negative) RSV RNA Qual (PCR) NEGATIVE (Negative) SARS-CoV-2 RNA (RT-PCR) POSITIVE A (Negative) Critical Care Time Critical Care Time Critical Care Time: Yes Total Critical Care Time: 45 Attestation: I have personally provided critical care time. Time includes review of lab data, radiology results, discussion with consultants, and monitoring for potential decompensation. Intervention performed as documented. Discharge Plan Discharge Clinical Impression: COVID, Dehydration Patient Disposition: Home, Self-Care Instructions: Dehydration (ED), COVID-19 (Coronavirus Disease 2019) (ED) Additional Instructions: Please follow-up with your primary care physician tomorrow. If you have any worsening or new symptoms, please return to the emergency room or call 911 Prescriptions: No Action meclizine 12.5 mg tablet 12.5 mg PO TID PRN (Reason: dizziness) Qty: 20 0RF metoprolol tartrate 25 mg tablet 12.5 mg PO BID atorvastatin 10 mg tablet 10 mg PO DAILY clotrimazole 1 % cream topical BID gabapentin 300 mg capsule 300 mg PO BID PRN (Reason: pain) Print Language: Macedonian
--- NOTE | 2024-08-12 14:55 | ECG_ITS ---
Test Reason : LIGHTHEADED Blood Pressure : */* mmHG Vent. Rate : 76 BPM Atrial Rate : 76 BPM P-R Int : 212 ms QRS Dur : 146 ms QT Int : 436 ms P-R-T Axes : 50 -41 86 degrees QTcB Int : 490 ms Sinus rhythm with sinus arrhythmia with 1st degree A-V block Left axis deviation Left bundle branch block Abnormal ECG When compared with ECG of 26-Jul-2024 23:29, No significant change was found Referred By: Kasia Damon Electronically Signed By: Emerson Weir
[2024-08-12 15:20] LABS: MANUAL DIFF FLAG NO
[2024-08-12 15:26] LABS: Basophils Percent Auto 0.6 % (0-2); Eosinophils Absolute Auto 0.2 X10*3/uL (0.0-0.4); Eosinophils Percent Auto 3.1 % (0-4); Hematocrit 35.7 % (37.0-47.0); Hemoglobin 11.5 g/dl (12.0-16.0); Imm Gran Abs Auto 0.03 X10*3/uL (0.00-0.03); Imm Gran Pct Auto 0.6 % (0.0-0.4); Lymphocytes Absolute Auto 1.6 X10*3/uL (1.2-4.9); Lymphocytes Percent Auto 32.2 % (20-40); Mean Corpuscular HGB Conc 32.2 g/dl (31.0-35.0); Mean Corpuscular Volume 90.2 fL (80.0-98.0); Mean Platelet Volume 9.3 fL (9.4-12.3); Monocytes Absolute Auto 0.6 X10*3/uL (0.1-1.2); Monocytes Percent Auto 12.1 % (2-11); Neutrophils Absolute Auto 2.5 x10*3/uL (2.0-8.3); Neutrophils Percent Auto 51.4 % (45-73); Platelet Count 199 X10*3/uL (160-400); Red Blood Count 3.96 X10*6/uL (4.20-5.50); Red Cell Distribution Width 13.1 % (11.0-16.0); White Blood Count 4.9 X10*3/uL (4.8-10.8)
[2024-08-12 15:39] LABS: Alanine Aminotransferase 19 U/L (0-31); Albumin Level 3.7 g/dL (3.5-5.0); Anion Gap 14 (12-20); Aspartate Amino Transferase 35 U/L (5-31); Bilirubin Direct 0.1 mg/dL (0.0-0.5); Bilirubin Total 0.3 mg/dL (0.0-1.0); Blood Urea Nitrogen 17 mg/dL (9-16); Calcium 8.5 mg/dL (8.4-10.2); Carbon Dioxide 23 mmol/L (22-29); Chloride 111 mmol/L (96-108); Creatinine Clr Calc Pharmacy 37.6; Estimated Glomerular Filt Rate 35; Glucose Random 115 mg/dL (60-115); Magnesium 2.1 mg/dL (1.6-2.6); Potassium 3.5 mmol/L (3.3-5.1); Sodium 144 mmol/L (135-145); Total Protein 7.3 g/dL (6.5-8.0)
[2024-08-12 15:44] LABS: Troponin-I High Sensitivity 11.7 ng/L (<3.5-17.0)
[2024-08-12 16:06] LABS: Influenza A PCR NEGATIVE (Negative); Influenza B PCR NEGATIVE (Negative); Resp Syncy Virus RNA Qual PCR NEGATIVE (Negative); SARS COV2 PCR INHOUSE POSITIVE (Negative)
[2024-08-12 17:37] LABS: Alkaline Phosphatase 74 U/L (39-117)
[2024-08-12 19:25] VITALS: BP 137/60; PULSE 71; RESP 20; TEMP 36.9; O2SAT 97
--- NOTE | 2024-08-12 20:08 | PC.NURSE ---
Pt a&ox4, no signs of distress. Pt denies pain at this time Pts at bedside Plan of care ongoing.
[2024-08-12 21:15] VITALS: BP 128/72; PULSE 69; RESP 18; TEMP 36.6; O2SAT 96
[2024-08-12 21:20] LABS: Appearance Urine Clear; Color Urine Yellow; Glucose Urine UA Negative (Negative); Leukocyte Esterase Urine Negative (Negative); Nitrite Urine Negative (Negative); UMIC TRIGGER UACC YES; Urine Blood Negative (Negative); Urine Ketones Negative (Negative); Urine Protein 100 (2+) mg/dL (Neg-Trace)
[2024-08-12 21:23] LABS: Bacteria Urine Trace (None Seen); Hyaline Casts Urine 0-2 /LPF (0-2); RBC Urine 0-2 /HPF (0-2); WBC Urine 0-5 /HPF (0-5)
[2024-08-12] MEDS: 0.9 % Sodium Chloride 1,000 ML 999 ML IVCONT (21:28)
--- NOTE | 2024-08-12 21:30 | PC.NURSE ---
Pt medicated per [facility] Plan of care ongoing.
[2024-08-12 22:07] VITALS: BP 160/62; PULSE 65
[2024-08-12 22:08] VITALS: BP 152/72; BP 163/77; PULSE 66; PULSE 71
== END 2024-08-12 23:39 | disposition home or self-care (01) ==
PROVIDERS: Physician Assistant; Emergency Provider Emergency Medicine; PCP Internal Medicine
DX: U07.1 COVID-19 (principal); E86.0 Dehydration; I49.9 Cardiac arrhythmia, unspecified; R53.81 Other malaise; I44.7 Left bundle-branch block, unspecified; I44.30 Unspecified atrioventricular block; R11.0 Nausea; F17.210 Nicotine dependence, cigarettes, uncomplicated; Z79.899 Other long term (current) drug therapy
CPT/HCPCS: 0241U; 80048; 80076; 81001; 83735; 84484; 85025; 93005; 96360; 96361; 99284; 99285

== ENCOUNTER → 2024-08-12 14:55 | Outpatient (BNV) | payer MEDICARE, SELFPAY | PROVIDERS: Emergency Provider Emergency Medicine; PCP Internal Medicine; Visit Provider Internal Medicine Cardiovascular Disease | DX: I44.0 Atrioventricular block, first degree (principal); I44.7 Left bundle-branch block, unspecified | CPT/HCPCS: 93010 ==

== ENCOUNTER 2024-08-29 10:34 | Outpatient (REF) | payer MEDICARE, SELFPAY ==
--- NOTE | ~2024-08-29 | XR_ITS ---
EXAMINATION: XR ANKLE, LEFT CLINICAL INFORMATION: M25.579 - Pain in unspecified ankle and joints of unspecified foot COMPARISON: 07/26/2024. TECHNIQUE: AP, lateral, and mortise views of the left ankle. FINDINGS: Redemonstration of oblique mildly comminuted nondisplaced fracture of the distal fibular metadiaphysis extending to the syndesmotic level. Fracture lines are mildly blunted, sclerotic, and there is abutting periostitis suggesting healing. A small avulsion fracture from the lateral malleolus is also noted, not significant changed. No additional fractures. The mortise is intact. The talar dome is normal. 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 Moderate to large plantar and moderate sized dorsal calcaneal spurs. Soft tissue swelling has improved but persists. XR/XR ankle LT min 3V IMPRESSION: 1. Healing mildly comminuted distal fibular fracture without change in alignment. Mortise remains intact. 2. Suspect small avulsion fracture arising from the tip of the lateral malleolus, also unchanged. 3. Improved soft tissue swelling. Electronically signed by: Gatito Masters MD 08/30/2024 09:31 AM EST
== END 2024-08-29 10:35 | disposition home or self-care (01) ==
LOC: HO.HOSX 10:34
PROVIDERS: Visit Provider Physician Assistant
DX: M25.572 Pain in left ankle and joints of left foot (principal); S82.832A Other fracture of upper and lower end of left fibula, initial encounter for closed fracture
CPT/HCPCS: 73610; 99212

== ENCOUNTER 2024-08-29 13:29 | Outpatient (AMB) | payer MEDICARE, SELFPAY ==
--- NOTE | 2024-08-29 13:40 | A.OFFVIS_ITS ---
Intake Visit Reasons: OV - Left distal fibula fx, DOI 07/26/24 Intake Note: Audra is a 74 year old female who presents today with a walker and short walking boot for a follow up of her left fibula fx, DOI 07/27/24. Patient reports she is doing much better than her first visit, states improvement in her bruising. She continues to wear walking boot as instructed. States no concerns today. Allergies No Known Allergies Allergy (Unknown, Verified 08/29/24 13:44) HPI HPI OV - Left distal fibula fx, DOI 07/26/24: Details: Ms. Patterson is a 74-year-old female who presents to the office today for routine follow-up status post left distal fibular fracture. Date of injury was on 07/26/24. She was last seen in the office on 08/01/2024 where she was placed into a tall walking boot. She has attended 1 physical therapy session and has been performing home exercise program. Overall she is doing very well and reports that her pain and bruising has significantly improved since her last visit. She is using a cane to assist with ambulation. [facility] Medical History Parastomal hernia Complication of external stoma of gastrointestinal tract Morbid obesity Hypertension Family History Father Metastatic cancer Social History Alcohol intake: current Alcohol intake frequency: holidays/special occasions only Patient Tobacco Use Status: Current everyday Tobacco user Cigarettes Per Day: 5 Current occupational status: retired and disabled Review of Systems Const All systems reviewed & are unremarkable except as noted in HPI and below Physical Exam Const General: cooperative, healthy appearing and no acute distress Resp Effort & Inspection: normal respiratory effort and able to speak in complete sentences Cardio Rate: regular rate Peripheral pulses: Peripheral pulses 2+ throughout Skin Lesions: no lesions Rashes: no rashes Extrem Other: Left ankle slight tenderness to palpation over the distal fibula over the fracture site. Able to dorsiflex and plantar flex, pronate and supinate to end range without difficulty or stiffness. Pedal pulse intact. Sensation intact. Assessment & Plan Assessment & Plan (1) Fracture of distal end of left fibula: Code(s): S82.832A - Other fracture of upper and lower end of left fibula, initial encounter for closed fracture Category: Medical Plan Ms. Patterson is a 74-year-old female who presents to the office today for routine follow-up status post left distal fibular fracture. Date of injury was on 07/26/24. She was last seen in the office on 08/01/2024 where she was placed into a tall walking boot. She has attended 1 physical therapy session and has been performing home exercise program. Overall she is doing very well and reports that her pain and bruising has significantly improved since her last visit. She is using a cane to assist with ambulation. While in the office today, we discussed with the patient still has some slight tenderness over the fracture site. Therefore, the patient will remain in the boot for the next 2 weeks. She will continue with her home exercise program and I would like to see her back in 4 weeks for [id number] check, sooner if needed. I did instruct that in 2 weeks when she discontinues the boot she should transition to a supportive walking shoe. She understands and accepts. Follow-up will be in 4 weeks with repeat x-rays, sooner if needed. X-rays of the left ankle which were obtained while in the office today and were reviewed by me, Felicita Vallejo PA-C, revealed routine healing left distal fibula fracture. Orders: Orders XR ankle LT min 3V Today M25.579 - Pain in unspecified ankle and joints of unspecified foot Coding Level of Care Code Global (47166) Diagnoses Fracture of distal end of left fibula S82.832A
== END 2024-08-29 13:55 | disposition home or self-care (01) ==
PROVIDERS: PCP Internal Medicine; Visit Provider Physician Assistant
DX: S82.892A Other fracture of left lower leg, initial encounter for closed fracture (principal)
CPT/HCPCS: 99213

== ENCOUNTER → 2024-08-29 13:32 | Outpatient (BNV) | payer MEDICARE, SELFPAY | PROVIDERS: Visit Provider Radiology Diagnostic Radiology | DX: R22.42 Localized swelling, mass and lump, left lower limb (principal) | CPT/HCPCS: 73610 ==

== ENCOUNTER 2024-09-16 10:42 | Outpatient (AMB) | payer MEDICARE, SELFPAY ==
--- NOTE | 2024-09-16 11:07 | MHC.PC.OV ---
Vital Signs 09/16/24 11:12 Height 5 ft 4 in Weight 194 lb BMI 33.3 BP 128/78 Respiration 16 Pulse 62 Pulse Source Pulse Oximeter Temp 97.6 F Pulse Oximetry (%) 99 Oxygen Delivery Method Room Air Intake Visit Reasons: Routine appt Emergency Care Tech Required: No Accompanied by: Self / Same As Patient Allergies No Known Allergies Allergy (Unknown, Verified 09/16/24 11:17) Tobacco use date assessed: 09/16/24 Fall risk assessment: 1 Fall in past year Last assessed Fall Risk: 09/16/24 Dental Screening Dental Screen Date: 09/16/24 Did you have a dental visit in the last 12 months?: No Did you have a dental problem in the last 6 months where you did not have access to dental care?: No [facility] Medical History (Updated 09/16/24 @ 11:46 by Javad Ojeda MD) Cervical spinal stenosis Thyroid nodule Parastomal hernia Complication of external stoma of gastrointestinal tract Morbid obesity Hypertension Surgical History S/P ileostomy S/P colostomy Family History Father Metastatic cancer Colon cancer Mother CHF (congestive heart failure) Social History Housing: House Alcohol intake: current Alcohol intake frequency: holidays/special occasions only Patient Tobacco Use Status: Current everyday Tobacco user Cigarettes Per Day: 4 service: No Current occupational status: retired and disabled Cognitive needs: No Hearing needs: No Vision needs: Yes Questionnaire PHQ-9 Over the last 2 weeks, how often have you been bothered by any of the following problems? 1. Little interest or pleasure in doing things: not at all 2. Feeling down, depressed, or hopeless: not at all 3. Trouble falling or staying asleep, or sleeping too much: not at all 4. Feeling tired or having little energy: not at all 5. Poor appetite or overeating: not at all 6. Feeling bad about yourself - or that you are a failure or have let yourself or your family down: not at all 7. Trouble concentrating on things, such as reading the newspaper or watching television: not at all 8. Moving or speaking so slowly that other people could have noticed. Or the opposite - being so fidgety or restless that you have been moving around a lot more than usual: not at all 9. Thoughts that you would be better off or of hurting yourself in some way: not at all Total score: 0 Source: Developed by Drs. Larry Molina, Geeta Lozano, Rajiv Santiago and colleagues, with an educational patito from [employer]. Thrive Questionnaire Date Thrive assessed: 09/16/24 I am a: Patient What is your living situation today?: I have a steady place to live Within the past 12 months, did the food you bought not last and you didn't have the money to get more?: Never true Within the past 12 months, did you worry whether your food would run out before you got money to buy more?: Never true Do you have trouble paying for medicines?: No Do you have trouble getting transportation to medical appointments?: No Do you have trouble paying your heating and electricity bill?: No Do you have trouble taking care of your child, family member or friend?: No Do you have trouble with day-to-day activities such as bathing, preparing meals, shopping, managing finances, etc.?: No Are you currently unemployed and looking for a job?: No Are you interested in more education?: No Please select the resources that you would like help with: None THRIVE Score: 0 AUDIT C Alcohol Use Questionnaire (AUDIT-C) 1. How often do you have a drink containing alcohol?: Monthly or less 2. How many drinks containing alcohol do you have on a typical day when you are drinking?: 1 or 2 3. How often do you have six or more drinks on one occasion?: Never Total Score: 1 KAROLYN-7 AMB Questionnaire KAROLYN-7 Date KAROLYN - 7 assessed: 09/16/24 Feeling nervous, anxious, or on edge: 0 = Not at all Not being able to stop or control worryin = Not at all Worrying too much about different things: 0 = Not at all Trouble relaxin = Not at all Being so restless that it is hard to sit still: 0 = Not at all Becoming easily annoyed or irritable: 0 = Not at all Feeling afraid as if something awful might happen: 0 = Not at all Total KAROLYN-7 score (0-4 normal; 5-9 mild; 10-14 moderate; 15-21 severe): 0 Source: Developed by Drs. Larry Molina, Geeta Lozano, Rajiv Santiago and colleagues, with an educational patito from [employer]. Physical exam (Primary Care) Vital Signs: Last Vital Signs Temp 97.6 F 09/16/24 11:12 Pulse 62 09/16/24 11:12 Resp 16 09/16/24 11:12 BP 128/78 09/16/24 11:12 Pulse Ox 99 09/16/24 11:12 Oxygen Delivery Method Room Air 09/16/24 11:12 BMI result Body Mass Index 33.3 Tobacco/Smoking Status: Tobacco use Status Tobacco use date assessed 09/16/24 09/16/24 11:21 Patient Tobacco Use Status Current everyday Tobacco 09/16/24 11:11 PHQ-9: PHQ-9 Score PHQ-9: Total score 0 09/16/24 11:28 Thrive Assessment: Date of Thrive Assessment Date Thrive assessed 09/16/24 09/16/24 11:21 Coding Level of Care Code New Pt Level 4 (46412) Complex EM visit Add On G2211 Diagnoses Thyroid nodule E04.1 Cervical spinal stenosis M48.02 Assessment & Plan Assessment & Plan (1) Thyroid nodule: Code(s): E04.1 - Nontoxic single thyroid nodule Category: Medical Plan: US of the neck had shown a possible nodule. US thyroid has been ordered to get a better idea of the size and nature of the nodule. (2) Cervical spinal stenosis: Code(s): M48.02 - Spinal stenosis, cervical region Category: Medical Plan: CT of the neck has shown spinal stenosis. Some of the symptoms, sharp pain on the right side of the neck can be attributed to it. MRI Of the spine has been ordered. Plan History of Present Illness The patient is a 74-year-old female presenting with symptoms suggestive of vertigo, including episodic dizziness and subjective tinnitus. The symptoms began abruptly while engaging in routine activities at her computer and have persisted intermittently, prompting concerns of a possible neuropathological event. Approximately one month ago, after a syncopal episode led to a fall, she sustained an ankle fracture on the right side, for which she is receiving current medical treatment. The patient's previous healthcare provider initiated gabapentin therapy, which provided partial symptomatic relief. She underwent a CT scan in August with inconclusive results and engaged with both emergency services and an ENT consultation to investigate potential otological causes which were not confirmed. Co-existing health history includes an ileostomy from 2009 and an unrepaired hernia. She experiences arthritic discomfort in the neck and reports difficulty with extended physical activity. Social History - Performs grocery shopping online. - Drives but avoids night driving. - Experienced minor functional decline due to dizziness symptoms. Review of Systems - Constitutional: Denies auditory disturbance or hearing loss. - Neurological: Reports episodic vertigo, transient dizziness, and brief loss of consciousness. - Musculoskeletal: Denies other joint pain beyond noted neck arthritis. - Genitourinary: Denies urinary incontinence. Physical Exam General: Appearance normal, both eyes and all related structures Nutritional Appearance: Well nourished Orientation/consciousness: Patient oriented x3 Limitations: No limitations Head: Normal to inspection, but patient reports dizziness and occasional throbbing pain Neck: Normal visual inspection, but patient reports arthritis and soreness Chest: Normal palpation of entire chest wall Respiratory: Normal respiratory effort, but patient reports shortness of breath on the right side Neurology: Patient oriented x3, reports occasional weakness and dizziness, but no falls during examination Results - Imaging: CT scan in August (no abnormalities noted). Plan The management plan for the patient's vertigo involves ongoing monitoring and evaluation, acknowledging the ENT's exclusion of true vertigo. As gabapentin provides partial symptom control, modification will depend on clinical response. The ankle fracture is under current orthopaedic management with further review scheduled as necessary. Although the CT scan revealed no pathology, further neurological evaluation remains a consideration if symptoms persist. The longstanding ileostomy and uncorrected hernia warrant surveillance for potential procedural intervention. Patient was informed and verbally consented to the use of an ambient scribe for clinic note documentation during this visit. Discussion Notes During the consultation, we extensively discussed the patient's symptoms of vertigo, dizziness, and tinnitus, as well as the treatment modalities currently in place, particularly the use of gabapentin. We reviewed the implications of her CT results and ENT findings, deliberating the absence of vertigo confirmation. Management for her right ankle fracture entails adherence to orthopedic schedules. Discussions about procedural aspects of her hernia were deferred pending future input. Follow-up obligations were stressed, emphasizing symptom monitoring and the importance of communicating exacerbations or new-onset symptoms. Patient Instructions - Maintain current medication regimen with gabapentin, observe for effectiveness. - Attend upcoming orthopedic follow-up for ankle fracture evaluation. - Monitor symptoms of dizziness and vertigo; follow up if worsening. - Avoid activities that may provoke dizziness, including night driving. - Engage in light activity to prevent deconditioning, as tolerated. - Continue hernia monitoring; report symptoms to healthcare provider. Orders: Orders MR cervical spine w con Today M48.02 - Spinal stenosis, cervical region US thyroid Today E04.1 - Nontoxic single thyroid nodule Medications: New cyclobenzaprine 10 mg PO BEDTIME 14 tabs 0RF
[2024-09-16 11:12] VITALS: BP 128/78; PULSE 62; RESP 16; TEMP 36.4; O2SAT 99; BMI 33.3
== END 2024-09-16 11:45 | disposition home or self-care (01) ==
LOC: HO.HMCHD 10:42
PROVIDERS: PCP Internal Medicine; Visit Provider Internal Medicine
DX: E04.1 Nontoxic single thyroid nodule (principal); M48.02 Spinal stenosis, cervical region

== ENCOUNTER → 2024-09-16 10:42 | Outpatient (BNVA) | payer MEDICARE, SELFPAY | PROVIDERS: PCP Internal Medicine; Visit Provider Internal Medicine | DX: E04.1 Nontoxic single thyroid nodule (principal); M48.02 Spinal stenosis, cervical region | CPT/HCPCS: 99202 ==

== ENCOUNTER 2024-09-26 08:23 | Outpatient (REF) | payer MEDICARE, SELFPAY | END 2024-09-26 08:24 | disposition home or self-care (01) | LOC: HO.HOSX 08:23 | PROVIDERS: Visit Provider Physician Assistant | DX: M25.572 Pain in left ankle and joints of left foot (principal); S82.832A Other fracture of upper and lower end of left fibula, initial encounter for closed fracture; X58.XXXA Exposure to other specified factors, initial encounter; Y93.9 Activity, unspecified; Y92.9 Unspecified place or not applicable; Y99.9 Unspecified external cause status | CPT/HCPCS: 99212 ==

== ENCOUNTER → 2024-09-26 08:50 | Outpatient (BNV) | payer MEDICARE, SELFPAY | PROVIDERS: Visit Provider Radiology Diagnostic Radiology | DX: M19.072 Primary osteoarthritis, left ankle and foot (principal) | CPT/HCPCS: 73610 ==

== ENCOUNTER 2024-09-26 13:46 | Outpatient (AMB) | payer MEDICARE, SELFPAY ==
--- NOTE | 2024-09-26 14:24 | A.OFFVIS_ITS ---
Vital Signs 09/26/24 14:25 Height 5 ft 4 in Weight 194 lb BMI 33.3 Intake Visit Reasons: OV-Left distal fibula fx, DOI 07/26/24 F/U Intake Note: Audra is a 74 year old female who presents today for a ROM check of her left fibula fx, DOI 07/27/24. Patient reports she is doing well, however she notices some swelling around her ankle. Allergies No Known Allergies Allergy (Unknown, Verified 09/26/24 14:29) HPI HPI OV-Left distal fibula fx, DOI 07/26/24 F/U: Details: Ms. Patterson is a 74-year-old female who presents to the office today for routine follow-up of a left distal fibula fracture that she sustained on 07/26/2024. At her last appointment on 08/29/2024 the patient was transitioned out of the walking boot and into a supportive walking shoe. She has been doing very well with this with minimal pain. She does notice occasional swelling with prolonged standing or walking. [facility] Medical History (Updated 09/16/24 @ 11:46 by Javad Ojeda MD) Cervical spinal stenosis Thyroid nodule Parastomal hernia Complication of external stoma of gastrointestinal tract Morbid obesity Hypertension Surgical History S/P ileostomy S/P colostomy Family History Father Metastatic cancer Colon cancer Mother CHF (congestive heart failure) Social History Housing: House Alcohol intake: current Alcohol intake frequency: holidays/special occasions only Patient Tobacco Use Status: Current everyday Tobacco user Cigarettes Per Day: 4 service: No Current occupational status: retired and disabled Cognitive needs: No Hearing needs: No Vision needs: Yes Review of Systems Const All systems reviewed & are unremarkable except as noted in HPI and below Physical Exam Vital Signs: BMI result Body Mass Index 33.3 Const General: cooperative, healthy appearing and no acute distress Resp Effort & Inspection: normal respiratory effort and able to speak in complete sentences Cardio Rate: regular rate Peripheral pulses: Peripheral pulses 2+ throughout Skin Lesions: no lesions Rashes: no rashes Extrem Other: Left ankle minimal tenderness to palpation over the distal fibula. Able to dorsiflex and plantar flex, pronate and supinate to end range without difficulty or stiffness. Pedal pulse intact. Sensation intact. Assessment & Plan Assessment & Plan (1) Fracture of distal end of left fibula: Code(s): S82.832A - Other fracture of upper and lower end of left fibula, initial encounter for closed fracture Category: Medical Plan Ms. Patterson is a 74-year-old female who presents to the office today for routine follow-up of a left distal fibula fracture that she sustained on 07/26/2024. At her last appointment on 08/29/2024 the patient was transitioned out of the walking boot and into a supportive walking shoe. She has been doing very well with this with minimal pain. She does notice occasional swelling with prolonged standing or walking. While in the office today new x-rays were obtained and show healed left distal fibular fracture. Therefore, there is no further orthopedic intervention needed at this time. She does have concerns with swelling and which I explained to the patient that swelling may persist in a waxing and waning pattern for up to a year after the injury. Patient understands and accepts. Should she have any increase in pain I would be happy to see her at any time for repeat x-rays and evaluation. Otherwise she will follow up p.r.n., sooner if needed. X-rays of the left ankle which were obtained while in the office today and were reviewed by me, Felicita Vallejo PA-C, revealed healed distal fibula fracture. Orders: Orders XR ankle LT min 3V Today M25.579 - Pain in unspecified ankle and joints of unspecified foot Coding Level of Care Code Est Pt Level 3 (08826) Diagnoses Fracture of distal end of left fibula S82.832A
[2024-09-26 14:25] VITALS: BMI 33.3
== END 2024-09-26 14:28 | disposition home or self-care (01) ==
LOC: HO.HOS 13:47
PROVIDERS: PCP Internal Medicine; Visit Provider Physician Assistant
DX: S82.832A Other fracture of upper and lower end of left fibula, initial encounter for closed fracture (principal)
CPT/HCPCS: 99213

== ENCOUNTER 2024-10-04 10:29 | Outpatient (AMB) | payer MEDICARE, SELFPAY ==
[2024-10-04 10:47] VITALS: BP 120/84; PULSE 30; TEMP 36.6; O2SAT 97
--- NOTE | 2024-10-04 10:47 | AM.OFFWIN_ITS ---
Intake Vital Signs 10/04/24 10:47 Weight 187 lb BP 120/84 Blood Pressure Location Rt brachial Position Sitting Pulse 30 L Pulse Source Pulse Oximeter Temp 98 F Temp Source Oral Pulse Oximetry (%) 97 Intake Visit Reasons: EP-rt side face pain Intake Note: Patient here for left side pof face pain/pressure, sinus pressure, jaw pain and headaches that has been present for 4 days. Patient Tobacco Use Status: Current everyday Tobacco user Allergies No Known Allergies Allergy (Unknown, Verified 09/26/24 14:29) Do you need a note to return to daycare/school/sports/work: No HPI EP-rt side face pain HPI Details 74-year-old female patient who presents to the walk-in with left sided face pain/pressure, sinus pressure, jaw pain and headaches that have been present for 4 days. Upon initial assessment, patient's HR was 29. Confirmed with EKG. Denies any dizziness, weakness, palpitations, chest pain, SOB. Denies history of bradycardia or cardiac issues. [facility] Medical History Cervical spinal stenosis Thyroid nodule Parastomal hernia Complication of external stoma of gastrointestinal tract Morbid obesity Hypertension Surgical History S/P ileostomy S/P colostomy Family History Father Metastatic cancer Colon cancer Mother CHF (congestive heart failure) Social History Housing: House Alcohol intake: current Alcohol intake frequency: holidays/special occasions only Patient Tobacco Use Status: Current everyday Tobacco user Cigarettes Per Day: 4 service: No Current occupational status: retired and disabled Cognitive needs: No Hearing needs: No Vision needs: Yes Physical Exam Vital Signs: Last Vital Signs Temp 98 F 10/04/24 10:47 Pulse 30 L 10/04/24 10:47 BP 120/84 10/04/24 10:47 Pulse Ox 97 10/04/24 10:47 Const General: cooperative, healthy appearing, comfortable and no acute distress Orientation/consciousness: patient oriented x3 Limitations: no limitations HEENT Head: Yes normal to inspection Ears: hearing grossly normal bilaterally Neck Neck: Yes no lymphadenopathy Resp Effort & Inspection: normal respiratory effort and able to speak in complete sentences Auscultation: clear to auscultation bilaterally Cardio Palpation: normal PMI Rate: bradycardic Rhythm: abnormal rhythm Peripheral pulses: Peripheral pulses 2+ throughout Skin General skin exam: no rashes or lesions noted Neuro General: patient oriented x3 and moves all extremities Cognition (Neuro): normal cognition Extrem General: Yes capillary refill normal and Yes no clubbing, cyanosis or edema Psych Appearance: grossly normal Mental Status: mental status grossly normal Speech and movement: Normal speech and movement present Assessment & Plan Assessment & Plan (1) Bradycardia: Code(s): R00.1 - Bradycardia, unspecified Plan: EKG indicated bradycardia, 29, with what appeared to be a third-degree AV block. I discussed this with patient and her , and recommended transfer to the hospital via EMS, which they agreed to. Patient transferred to [facility] emergency department via EMS call. Expect call made to [facility] CINTIA Mullen. Orders: Orders AMB EKG-In Office Today R00.1 - Bradycardia, unspecified Coding Level of Care Code Est Pt Level 4 (50014) Diagnoses Bradycardia R00.1
== END 2024-10-04 11:31 | disposition home or self-care (01) ==
PROVIDERS: PCP Internal Medicine; Visit Provider Nurse Practitioner Family
DX: R00.1 Bradycardia, unspecified (principal)

== ENCOUNTER → 2024-10-04 10:29 | Outpatient (BNVA) | payer MEDICARE, SELFPAY | PROVIDERS: PCP Internal Medicine | DX: R00.1 Bradycardia, unspecified (principal) | CPT/HCPCS: 99212 ==

== ENCOUNTER 2024-10-12 09:29 | Outpatient (AMB) | payer MEDICARE, SELFPAY ==
--- OUTSIDE RECORDS SUMMARY | 2024-10-12 09:30 | XMS_ITS | Continuity of Care Document ---
Author Organization [facility] ter Address [address] [place] [id number]- Care Team Providers Care Hearse Driver Name Role Phone Wali Harris MD Primary Care Physician [phone] Encounter [facility] Date(s): 10/04/24 - 10/08/[address] [address] Discharge Disposition: A-D/C Home Attending Physician: Gema Barrett MD Admitting Physician: Gema Barrett MD Referring Physician: Not on Staff, Referring MD Encounter Type: Disch IP Allergies, Adverse Reactions, Alerts No Known Allergies Medications amLODIPine 5 mg oral tablet 10 mg, By Mouth, Daily, # 30 capsule, Refills 0, Tot. Refills 0, Maintenance, 10/08/24 11:08:00 AM EDT, Route to Pharmacy Electronically, [facility], Partial fill upon patient request if the prescription is for a schedule II opioid drug., 168, cm, 10/04/24 15:08:00 EDT, Height, 86, kg, 10/04/24 15:08:00 EDT, Dry Weight Start Date: 10/08/24 Status: Ordered Quantity: 30.0 Unit: capsule Repeat number: 1 atorvastatin 10 mg oral tablet 1 tablet = 10 mg, By Mouth, Daily at bedtime Start Date: 10/04/24 Status: Ordered Repeat number: 1 carvedilol 3.125 mg oral tablet 3.125 mg, Tablet, By Mouth, JESSICA, 10/08/24 9:02:00 AM EDT Start Date: 10/08/24 Stop Date: 10/08/24 Status: Completed Repeat number: 1 carvedilol 3.125 mg oral tablet 3.125 mg, By Mouth, 2 times a day, # 60 capsule, Refills 0, Tot. Refills 0, Maintenance, 10/08/24 11:08:00 AM EDT, Route to Pharmacy Electronically, [facility], Partial fill upon patient request if the prescription is for a schedule II opioid drug., 168, cm, 10/04/24 15:08:00 EDT, Height, 86, kg, 10/04/24 15:08:00 EDT, Dry Weight Start Date: 10/08/24 Status: Ordered Quantity: 60.0 Unit: capsule Repeat number: 1 gabapentin 100 mg oral capsule TAKE 1 CAPSULE(S) BY MOUTH THREE TIMES A DAY AND TAKE 2 CAPSULE(S) BY MOUTH AT BEDTIME Start Date: 10/04/24 Status: Ordered Repeat number: 1 meclizine 12.5 mg oral tablet 1 tablet = 12.5 mg, By Mouth, 3 times a day, PRN as needed for dizziness Start Date: 10/04/24 Status: Ordered Repeat number: 1 Results Radiology Reports * Exam Date Time Procedure Performing Provider Status 10/08/24 4:39 AM Chest 2 Views Frontal and Lat Jb Amador; Auth (Verified) Notes: (Chest 2 Views Frontal and Lat) Reason For Exam: Postop RESULT: Chest 2 Views Frontal and Lat Chest 2 Views Frontal and Lat Reason: Postop; Clinical Question(s): Line Placement; Pneumothorax; COMPARISON: Multiple priors, most recent chest radiograph from 10/07/2024. FINDINGS: LINES AND TUBES: Left-sided dual lead pacemaker/AICD with intact wires. Right IJ central venous introducer sheath remains unchanged. LUNGS AND PLEURA: Possible small posterior pleural effusions only seen on the lateral view. No pneumothorax. HEART, MEDIASTINUM AND PHILLIP: Unchanged. BONES AND SOFT TISSUES: Degenerative spine changes. IMPRESSION: Small bilateral pleural effusions left larger than right. No radiographic evidence of left apical pneumothorax. WSN: [id number] Ordering Physician: Jose Rafael Martinez Dictated By: Rodney Carrillo MD, V Dictated Date/Time: 10/08/24 11:14 a Reviewed By: Rodney Carrillo MD, V Signed By: Rodney Carrillo MD, V Signed Date/Time: 10/08/24 11:14 am Transcribed By: PEGGY Transcribed Date/Time: 10/08/24 8:58 am * Exam Date Time Procedure Performing Provider Status 10/07/24 5:55 PM Chest Portable Estee Priest (V erified) Notes: (Chest Portable) Reason For Exam: s/p pacemaker placement;Other: RESULT: Chest Portable Chest Portable Reason: Other:; s p pacemaker placement; Special Instructions: Please do after pacemaker placement;Order Comment: 10 07 2024 15:34:46 EDT - Not in room - [facility] when ready. ML COMPARISON: 10/06/2024 7:04 AM FINDINGS: LINES AND TUBES: Dual-lead left subclavian pacer/AICD wires are intact. Right IJ CVL sheath in the mid SVC unchanged. LUNGS AND PLEURA: Clear lungs. Normal pulmonary vascularity. No pleural effusion. No pneumothorax. HEART, MEDIASTINUM AND PHILLIP: Mild prominence of the cardiac silhouette. Normal mediastinal and hilar contour. BONES AND SOFT TISSUES: No acute abnormality. IMPRESSION: No acute abnormality. Unchanged position of the right internal jugular sheath/line. WSN: [id number] Ordering Physician: Sandeep Bonilla Dictated By: Feliberto Cunningham MD Dictated Date/Time: 10/07/24 11:26 p Reviewed By: Feliberto Cunningham MD Signed By: Feliberto Cunningham MD Signed Date/Time: 10/07/24 11:26 pm Transcribed By: PEGGY Transcribed Date/Time: 10/07/24 11:25 pm * Exam Date Time Procedure Performing Provider Status 10/06/24 7:28 AM Chest Portable Lauren Arana (Verified) Notes: (Chest Portable) Reason For Exam: Daily for line placement;Line Placement RESULT: Chest Portable Chest Portable REASON: Line Placement; Daily for line placement / COMPARISON: 10/04/2024 FINDINGS: LINES AND TUBES: Right internal jugular sheath with the tip projecting near the confluence of the internal jugular vein and the subclavian vein. Multiple wires project over the patient. LUNGS AND PLEURA: Clear lungs. Normal pulmonary vascularity. No pleural effusion. No pneumothorax. HEART, MEDIASTINUM AND PHILLIP: Heart appears enlarged but this is likely exaggerated by technique. Aorta is mildly calcified. BONES AND SOFT TISSUES: No acute abnormality. IMPRESSION: Unchanged position of the right internal jugular sheath/line. WSN: [id number] Ordering Physician: Shar Dalal Dictated By: Feliberto Magdaleno MD Dictated Date/Time: 10/06/24 7:50 am Reviewed By: Feliberto Magdaleno MD Signed By: Feliberto Magdaleno MD Signed Date/Time: 10/06/24 7:50 am Transcribed By: PEGGY Transcribed Date/Time: 10/06/24 7:49 am * Exam Date Time Procedure Performing Provider Status 10/04/24 1:40 PM Chest Portable Geovanna Andujar; Auth ( Verified) Notes: (Chest Portable) Reason For Exam: Tube Placement RESULT: Chest Portable Chest Portable Reason: Tube Placement; Clinical Question(s): Tube Placement COMPARISON: None. FINDINGS: LINES AND TUBES: Left IJ central line with tip appears to be projecting over the upper SVC. LUNGS AND PLEURA: Mild left basilar atelectasis. Otherwise, no focal consolidation. No pleural effusion. However, the costophrenic angles are not entirely included. No pneumothorax. HEART, MEDIASTINUM AND PHILLIP: Heart is normal in size. Normal mediastinal and hilar contour. BONES AND SOFT TISSUES: No acute abnormality. IMPRESSION: Left IJ central line with tip appears to be projecting over the upper SVC. WSN: [id number] Ordering Physician: Kamla Alfaro Dictated By: Isma Prieto MD Dictated Date/Time: 10/04/24 1:52 pm Reviewed By: Isma Prieto MD Signed By: Isma Prieto MD Signed Date/Time: 10/04/24 1:52 pm Transcribed By: PEGGY Transcribed Date/Time: 10/04/24 1:49 pm Vital Signs Most recent to oldest [Reference Range]: 1 2 3 Height 168 cm (10/04/24 3:08 PM) 168 cm (10/04/24 12:08 PM) Weight 82 kg (10/08/24 4:44 AM) 83.5 kg (10/07/24 6:35 AM) 83.6 kg (10/06/24 7:00 AM) Oxygen Saturation [94-100 %] 97 % (10/08/24 12:00 PM) 96 % (10/08/24 11:00 AM) 94 % (10/08/24 10:00 AM) Pulse Rate [55-90 bpm] 64 bpm (10/08/24 9:28 AM) 36 bpm *L* (10/04/24 6:00 PM) 27 bpm *L* (10/04/24 5:00 PM) Body Mass Index [18.5-24.99 kg/m2] 29.94 kg/m2 *H* (10/04/24 3:08 PM) Blood Pressure [90-138/55-84 mm Hg] 136/67mm Hg (10/08/24 12:00 PM) 121/77mm Hg (10/08/24 11:00 AM) 150/67mm Hg *H* (10/08/24 10:00 AM) Respiratory Rate [16-30 br/min] 15 br/min *L* (10/08/24 12:00 PM) 12 br/min *L* (10/08/24 11:00 AM) 18 br/min (10/08/24 10:52 AM) Temperature [96.8-100.4 DegF] 97.6 DegF (10/08/24 8:00 AM) 97.9 DegF (10/08/24 4:00 AM) 98.0 DegF (10/08/24 12:00 AM) Mode of Delivery (Oxygen) Room air (10/08/24 12:00 PM) Room air (10/08/24 11:00 AM) Room air (10/08/24 10:00 AM) Blood pressure sites Arm, right (10/08/24 12:00 PM) Arm, right (10/08/24 11:00 AM) Arm, right (10/08/24 10:00 AM) Temperature Route Oral (10/08/24 8:00 AM) Oral (10/08/24 4:00 AM) Oral (10/08/24 12:00 AM) Dry Weight 86 kg (10/04/24 3:08 PM) 87 kg (10/04/24 12:08 PM) Weight Obtained Via Bed scale (10/08/24 4:44 AM) Bed scale (10/06/24 3:45 AM) Bed scale (10/05/24 2:41 AM) Note * Jonas Mcadams RN: PERFORM Event Display: Discharge/Transfer Note Hospital Authored Date: [id number] Nursing Discharge Note Entered On: 10/08/2024 13:23 EDT Performed On: 10/08/2024 13:23 EDT by Jonas Mcadams RN Nursing Discharge Note 2 Discharge Time : 10/08/2024 13:22 EDT Discharge Level of Care at Discharge : Home/[facility]oster [facility] Patient Left Unit Via : Wheelchair Patient Accompanied Off Unit with : Significant other, Other: PCT DC Instructions Provided & Signed by Pt : Yes Patient Understands D/C Instructions : Yes Patient Instructions Discharge Signed : Yes Did Pt have Specialty Bed or Wound Vac : Yes Jonas Mcadams RN - 10/08/2024 13:23 EDT * Jonas Mcadams RN: PERFORM Event Display: Patient Education/Instruction Authored Date: [id number] Inpatient Adult Discharge Instructions. [address] [address] Name: KATHERINE MONTEZ : 1950?? Visit: 10/04/2024 12:29?? Current Date: 10/08/2024 12:19 ?? Account: [id number]?? Inpatient Adult Discharge Instructions We would like to thank you for allowing us to assist you with your healthcare needs. The following includes patient education materials and information regarding your injury/illness. Our entire staffstrives to provide an excellent experience for our patients and their families. PLEASE ENSURE YOU FOLLOW-UP PER THE INSTRUCTIONS BELOW! ?? YOUR OPINION IS IMPORTANT TO US! Please complete the survey you may receive by mail or email. Your feedback will be used to make improvements to the healthcare experiences of our patients and their families. Surveys are administered by [employer] ?? If further treatment with your primary care physician or another doctor is recommended, it is important for you to keep the appointment. Call your primary care physician or return to the Emergency Department immediately if your condition worsens, fails to improve, or new symptoms develop. If you need to find a doctor, you can call [facility] for a referral at [phone] or toll free at [phone]) or log in to [email or web address].. ?? [facility], in keeping with [facility] guidance, no longer requires face masks for staff, patientsor visitors in most situations. Similiar to time spent indoors at other locations, there is the chance that you were exposed to repiratory viruses during your time with us (such as flu or COVID-19). If you develop symptoms concerning for a viral respiratory infection, please seek testing (and treatment if indicated) from your medical provider or home test kit. ?? You can view and manage your care through the patient portal or by using a health care nia of your choosing. [employer] is a website that allows you to securely view your medical information including your hospital discharge summary, office visit summaries, medications and follow-up visits. You can also request appointments, renew medications, and request access to your medical information using a health care nia of your choosing, or just ask a question. You are entitled to know the individuals who participated in your treatment. This information is available within your medical record and will be provided upon your request. You can enroll at [email or web address] or register d uring your next office visit. You have been discharged from [facility], Patient Care Unit: [facility]??. If you have any questions regarding these instructions, including results of studies pending, afteryou leave, please call us and we will be happy to assist you 30/01. [facility] Your Care Team Attending Physician Gema Barrett MD?? Consulting Providers Gema Barrett MD?? Discharging Providers Sandeep Bonilla DO Your Diagnosis Complete heart block General medical Hyperlipemia Hypertension Tests Performed Below is a partial list of the tests performed during your hospitalization. You may have had other tests and procedures not included in this list. Please discuss all test results with your provider. BASE EXCESS POC CARTRIDGE Basic Metabolic Panel CALCIUM IONIZED POC CART CBC CBC w/ Differential Comprehensive Metabolic Panel COVID-19, RSV, and Flu A/B, Rapid PCR GLUCOSE POC GLUCOSE POC CARTRIDGE HEMATOCRIT POC CARTRIDGE HEMOGLOBIN POC CARTRIDGE High Sensitivity Troponin T Hold Blue Top Tube Lactate Level LFT's Magnesium Level Mg Level Northeast Tick PCR Panel Phosphorus Level Potassium Level POTASSIUM POC CARTRIDGE SODIUM POC CARTRIDGE Troponin T, High Sensitivity TSH with T4 Reflex (Adults Only) Type and Screen VBG POC CARTRIDGE CXR Portable XR Chest 2 Views Frontal and Lat Add On Lab Order?? Base Excess (Lab) POC Cartridge (BASE EXCESS POC CARTRIDGE)?? Basic Metabolic Panel?? CBC?? CBC w/ Differential?? COVID-19, RSV, and Flu A/B, Rapid PCR?? Comprehensive Metabolic Panel?? Glucose (Lab) POC Cartridge (GLUCOSE POC CARTRIDGE)?? Glucose POC?? Hematocrit (Lab) POC Cartridge (HEMATOCRIT POC CARTRIDGE)?? Hemoglobin (Lab) POC Cartridge (HEMOGLOBIN POC CARTRIDGE)?? Hepatic Function Panel (LFT's)?? High??Sensitivity??Troponin T (Troponin T, High Sensitivity)?? Hold Blue Top Tube?? Ionized Calcium(POC) POC Cartridge (CALCIUM IONIZED POC CART)?? Lactic Acid Level (Lactate Level)?? Magnesium Level?? Northeast Tick PCR Panel?? Phosphorus Level?? Potassium (Lab) POC Cartridge (POTASSIUM POC CARTRIDGE)?? Potassium Level?? Sodium (Lab) POC Cartridge (SODIUM POC CARTRIDGE)?? TSH with T4 Reflex (Adults Only)?? Type and Screen?? VBG (Lab) POC Cartridge (VBG POC CARTRIDGE)?? Chest 2 Views Frontal and Lat (XR Chest 2 Views Frontal and Lat)?? Chest Portable (CXR Portable)?? Primary Care Provider Wali Harris MD? Advance Directive Health Care Proxy on File No Discharge Vitals Temperature: 97.6 DegF Height: 168 cm Pulse Rate: 64 bpm Weight: 82 kg Respiratory Rate:??12 br/min??Low Body Mass Index:??29.94 kg/m2??High Systolic Blood Pressure: 121 mm Hg Body surface area: 1.99 Diastolic Blood Pressure: 77 mm Hg ?? Oxygen Saturation: 96 % ?? Studies Pending All studies ordered during this hospital stay have been completed unless listed below. Please discuss all pending results with your provider listed above in these instructions. ?? Add On Lab Order?? High??Sensitivity??Troponin T (Troponin T, High Sensitivity)?? Potassium Level?? What to do next Instructions From Your Doctor You were seen and evaluated??at [facility]??after you are found??to have a very slow heart rate.?? You were found to??be in??something called a complete heart block. ??Since you are having a very slow heart rate??we have??placed??a heart pacemaker.?? You also had elevated blood pressures while in the hospital??and for this we have started you on??amlodipine as well as??carvedilol. ??It is very important??that you follow-up with your primary care provider.?? Please give them a call first thing??tomorrow morning to discuss??your recent hospital visit.?? Please also keep??your follow-up appointment??your cardiology team. ?? Please??return??to the emergency department??for any??worsening chest pain,??any shortness of breath,??any worsening headaches,??any worsening lightheadedness or dizziness,??any worsening nausea or vomiting,??feeling off balance,??or any??concerns??for infection around??your new pacemaker.?? Signs of infection can include??increased swelling and redness??around the surgery site??as well as fevers. ?? Orders? 10/08/24 11:35:00 EDT?? Prescriptions??, ??10/08/24 11:35:00 EDT?? Scheduled Follow-Up Appointments Monday 10:30 AM EDT ?? Where[facility] [address] [place] [id number]- Status: Pending You Need to Schedule the Following Appointments Follow Up with??Wali Harris MD When:??Within 1-2 day: call to discuss follow up visit Where: [address] [place] [address]- Discharge Medications KATHERINE MONTEZ :1950 Visit Date:10/04/2024 Medications: Please continue your medications until treatment is completed or stopped by your provider. Medications not listed below should be discontinued. Discuss any questions related to medications with your provider. What How Much When Instructions Next Dose New Amlodipine (amLODIPine 5 mg oral tablet) 10 Milligram Oral Daily Pickup at [facility] 3 10/09 8AM New Carvedilol (carvedilol 3.125 mg oral tablet) 3.125 Milligram Oral Twice a day Pickup at [facility] 3 10/08 8PM Unchanged Atorvastatin (atorvastatin 10 mg oral tablet) 1 tab(s) Oral Daily at Bedtime 10/08 Bedtime Unchanged Gabapentin (gabapentin 100 mg oral capsule) TAKE 1 CAPSULE(S) BY MOUTH THREE TIMES A DAY AND TAKE 2 CAPSULE(S) BY MOUTH AT BEDTIME ?? 4 3PM Unchanged Meclizine (meclizine 12.5 mg oral tablet) 1 tab(s) Oral 3 times a day as needed for as needed for dizziness As Needed Pharmacy Information [facility]: [address] [place], [place] [id number] [phone] ?? What How Much When Comments Stop Taking Cyclobenzaprine (cyclobenzaprine 10 mg oral tablet) 1 tab(s) Oral Daily at Bedtime Prescription Given During Visit Amlodipine (amLODIPine 5 mg oral tablet) - 10 mg, By Mouth, Daily, # 30 capsule, 0 Refills, [facility], [address] [place] [phone]?? Carvedilol (carvedilol 3.125 mg oral tablet) - 3.125 mg, By Mouth, 2 times a day, # 60 capsule, 0 Refills, [facility], [address] [place] [phone]?? Laboratory Results Below is a partial list of the most recent Laboratory test results done prior to this discharge. You may have had other tests and procedures not included in this list. Please discuss all test resultswith your provider. Est Creatinine Clearance - 26.30 mL/min (10/08/2024) BASE EXCESS POC CARTRIDGE (10/04/2024) ???Base Excess (POC) POC Cartridge - NEGATIVE 1 Basic Metabolic Panel (10/07/2024) ???Sodium - 143 mmol/L???Potassium - HEMOLYZED???Chloride - 113 mmol/L???Bicarbonate Level - 19 mmol/L???Anion Gap - 11 mmol/L???Glucose Level - 78 mg/dL???BUN - 20 mg/dL???Creatinine-Blood - 1.60 mg/dL???Estimated GFR Creatinine - 34 ML/MIN/1.73 M2???Calcium - 7.1 mg/dL CALCIUM IONIZED POC CART (10/04/2024) ???Ionized Calcium (POC) POC Cartridge - 1.13 mmol/L CBC (10/07/2024) ???WBC - 10.1 k/mm3???RBC - 4.46 m/mm3???Hgb - 12.7 Gm/dL???Hct - 40.5 %???MCV - 90.8 femtoliters???MCH - 28.5 pg???MCHC - 31.4 Gm/dL???Platelet Count - 170 k/mm3???RDW-SD - 44.9 femtoliters???MPV - 10.6 femtoliters???Nucleated RBC (Automated) - 0.0 #/100 WBC'S???Abs. NRBC - 0.0 k/mm3 CBC w/ Differential (10/08/2024) ???WBC - 9.8 k/mm3???RBC - 4.18 m/mm3???Hgb - 11.8 Gm/dL???Hct - 37.9 %???MCV - 90.7 femtoliters???MCH - 28.2 pg???MCHC - 31.1 Gm/dL???Platelet Count - 155 k/mm3???RDW-SD - 44.8 femtoliters???MPV - 10.6 femtoliters???Nucleated RBC (Automated) - 0.0 #/100 WBC'S???Abs. NRBC - 0.0 k/mm3???Abs. Neut - 6.6 k/mm3???Abs. Lymph - 1.8 k/mm3???Abs. Luce - 0.8 k/mm3???Abs. Eo - 0.5 k/mm3???Abs. Baso - 0.1 k/mm3???Neut % - 66.9 %???Lymph % - 18.8 %???Luce % - 8.0 %???Eos % - 5.3 %???Baso % - 0.6 %???Imm Gran - 0.4 %???Abs. Imm Gran - 0.0 k/mm3 Comprehensive Metabolic Panel (10/08/2024) ???Sodium - 143 mmol/L???Potassium - 3.8 mmol/L???Chloride - 108 mmol/L???Bicarbonate Level - 22 mmol/L???Anion Gap - 13 mmol/L???Glucose Level - 79 mg/dL???BUN - 23 mg/dL???Creatinine-Blood - 1.82 mg/dL???Estimated GFR Creatinine - 29 ML/MIN/1.73 M2???Calcium - 8.6 mg/dL???Protein, Total - 6.0 Gm/d L???Albumin - 3.2 Gm/dL???AG Ratio - 1.1???Alkaline Phosphatase - 70 units/L???AST (SGOT) - 37 units/L???ALT (SGPT) - 17 units/L???Bilirubin, Total - 0.4 mg/dL COVID-19, RSV, and Flu A/B, Rapid PCR (10/04/2024) ???Influenza A PCR - NEGATIVE???Influenza B PCR - NEGATIVE???RSV PCR - NEGATIVE???COVID-19 PCR Specimen Source - NASAL???COVID-19 PCR Result - NEGATIVE GLUCOSE POC (10/04/2024) ???Glucose, POC - 121 mg/dL GLUCOSE POC CARTRIDGE (10/04/2024) ???Glucose (POC) POC Cartridge - 80 HEMATOCRIT POC CARTRIDGE (10/04/2024) ???Hematocrit (POC) POC Cartridge - 42 % HEMOGLOBIN POC CARTRIDGE (10/04/2024) ???Hemoglobin (POC) POC Cartridge - 14.3 Gm/dL High Sensitivity Troponin T (10/04/2024) ???High Sensitivity Troponin (HSTnT) - 63 ng/L Hold Blue Top Tube (10/04/2024) ???Hold Blue Top - SPECIMEN DISCARDED AFTER 4 HOURS. Lactate Level (10/05/2024) ???Lactate - 1.3 mmol/L LFT's (10/04/2024) ???Protein, Total - 6.1 Gm/dL???Albumin - 3.3 Gm/dL???Alkaline Phosphatase - 72 units/L???AST (SGOT) - 24 units/L???ALT (SGPT) - 11 units/L???Bilirubin, Total - 0.5 mg/dL???Bilirubin, Direct - 0.2 mg/dL???Bilirubin, Indirect - 0.3 mg/dL Magnesium Level (10/08/2024) ???Magnesium - 2.2 mg/dL Mg Level (10/07/2024) ???Magnesium - 2.0 mg/dL Northeast Tick PCR Panel (10/04/2024) ???Anaplasma PCR - NEGATIVE???Babesia microti PCR Result - NEGATIVE???Ehrlichia PCR - NEGATIVE???B.Burgdorferi PCR - NEGATIVE Phosphorus Level (10/08/2024) ???Phosphorus - 4.2 mg/dL Potassium Level (10/07/2024) ???Potassium - 4.0 mmol/L POTASSIUM POC CARTRIDGE (10/04/2024) ???Potassium (POC) POC Cartridge - 5.3 mmol/L SODIUM POC CARTRIDGE (10/04/2024) ???Sodium (POC) POC Cartridge - 141 mmol/L Troponin T, High Sensitivity (10/08/2024) ???High Sensitivity Troponin (HSTnT) - 105 ng/L TSH with T4 Reflex (Adults Only) (10/04/2024) ???TSH - 2.40 uIU/mL Type and Screen (10/04/2024) ???Blood Type - B Negative???Antibody Screen - Negative VBG POC CARTRIDGE (10/04/2024) ???pH Venous (POC) POC Cartridge - 7.37???pCO2 Venous (POC) POC Cartridge - 42.1 mm Hg???pO2 Venous(POC) POC Cartridge - 22 mm Hg???Est Bicarbonate (POC) POC Cartridge - 24.4 mmol/L???% O2 Sat Venous (POC) POC Cartridge - 37???Specimen Type - Blood Gas - VENOUS You will be contacted within 72 hours with your results. Allergies (NKA means No Known Allergies) NKA Problems No qualifying data available Education Materials Below is the list of Educational Leaflet Providered with your Discharge Instructions. [employer] Patient Education - New Pacer Instructions?? [employer] Patient Education - Pacemakers?? [employer] Patient Education - Carvedilol?? [employer] Patient Education - Amlodipine?? Valuables and Belongings I fully understand and agree that [facility] accepts no responsibility for all my personal property including clothing, toilet articles, radios, jewelry, dentures, hearing aids, rings, money, or any other property that is in my possession or is brought to me after admission. I understand certain valuables may be placed in a hospital safe for a short period of time. I understand that the hospital is not liable for loss or damage due to accident, fire, or other natural occurrence while said property is in the safe. I accept full responsibility for any personal property that I keep with me, and will not hold the hospital responsible in case of loss or disappearance. I acknowledge that i have been encouraged to send valuables and belongings home. ?? Review of Valuable and Belonging List: With patient, With family, With witness Date for Pt to Sign Valuables/Belongings: 10/04/24 15:26:00 ?? Other Discharge Information ? Pulmonary Rehab Status?? Pulmonary Rehab Discharge Status?? Respiratory Rate:??12 br/min??Low ? Common Emergency Awareness Tips IS IT A STROKE? Act FAST and Check for these signs: FACE Does the face look uneven? ARM Does one arm drift down? SPEECH Does their speech sound strange? TIME Call at any sign of stroke ?? Heart Attack Signs Chest discomfort: Most heart attacks involve discomfort in the center of the chest and lasts more than a few minutes, or goes away and comes back. It can feel like uncomfortable pressure, squeezing, fullness or pain. Discomfort in upper body: Symptoms can include pain or discomfort in one or both arms, back, neck, jaw or stomach. Shortness of breath: With or without discomfort. Other signs: Breaking out in a cold sweat, nausea, or lightheaded. Remember, MINUTES DO MATTER. If you experience any of these heart attack warning signs, call to get immediate medical attention! ?? Smoking can increase your chances of developing chronic health problems and can cause harmful effects to other family members in your house. If you smoke, you are strongly encouraged to quit. Please call [employer] at [phone] or [phone] ([phone]) or log in to www.[employer].org for referrals to smoking cessation programs. ?? 445 Suicide & Crisis Lifeline is available 30/01 if you or someone you know needs to find a reason to keep living. By calling 329 you'll be connected to a skilled, trained counselor at a crisis center in your area. INPATIENT DISCHARGE INSTRUCTIONS SIGNATURE PAGE KATHERINE MONTEZ Location:[facility] Registration Date and Time:10/04/2024 12:29 EDT Primary Care Physician: Steven MONET, Wali, Attending Physician: Arnold MONET, [facility], I KATHERINE MONTEZ, have received the above patient education materials/instructions and have verbalized understanding. If ambulance or transport services are being used I further acknowledge being given a choice of service. ?? If you need to contact me, please call me at this number: . Patient/Pointing Machine Operator Name: Patient/Pointing Machine Operator Signature: Relationship to Patient: Witness Name/Signature: Date: * Sandeep Bonilla DO: PERFORM Event Display: Patient Education Leaflets Authored Date: [id number] New Pacer Instructions ?? 726 Permanent Pacemaker Instructions Site Care ??? Do not remove the dressing or shower for 3 days. Once the dressing is removed, you may get theincision wet but do not scrub the area. Pat it dry. Do not apply lotions or ointments to the site. The incision will be covered with either skin glue OR Steri-strips. Do not peel off either skin covering. Hand washing is a must and avoid touching the incision. ??? Steri-strips care-Do not pull, tug, or rub Steri-strips. They will fall off on their own within two weeks, otherwise they will be removed at the time of wound check. ?? Activity ??? If you received a new battery only:??for approximately 2 weeks do not lift, push, pull or carryobjects that weigh more than 10 pounds until the incision is healed. Avoid clothing that rubs against the incision. ??? If you received a new lead or wire: Limit the movement of your arm on the same side as the pacemaker, but do not stop moving it. o Avoid stretching that arm up over your head or lift or carry things that weigh more than 10 pounds for 6 weeks. o Avoid golfing, swimming, tennis, bowling, shoveling snow, or mowing the lawn for 6 weeks. o You may sleep on the same side of the device once it is comfortable. o Do not drive for 5 days unless otherwise instructed by physician. o Avoid clothing that rubs against your incision.? Follow-up Instructions ??? If you do not already have a scheduled follow-up appointment, please call to make one. ??? Please review your manual provided with the device. ??? You will receive a temporary identification cardwhen you leave the hospital. A permanent card will be sent in the mail from the surgical product sales consultant in 6-8weeks. Please carry your ID card with you at all times. ??? Do not go through metal detectors, have your ID card ready you will need to show it. Please inform security staff, they are trained in proper procedures. ??? You may receive a home monitor with your device, please plug in and leave by yourbedside. Do not touch any buttons unless instructed otherwise. ??? Please tell all your healthcare providers (medical doctors, surgeons, dentists, chiropractors, etc.) you have a pacemaker. ??? Avoidpotential sources of strong electrical or magnetic brady. Please check with your engine cowling installer prior to scheduling an MRI for diagnostic purposes. Some implantable cardiac devices are not MRI conditional. If there is a question about any piece of equipment you may contact the device company at the toll free number on the back cover of the booklet or your ID card. ??? Most appliances (including microwaves) and tools in good repair can be used. Cell phones could affect your device. Hold the phoneon the opposite ear and do not carry in your breast pocket. ?? Call your doctor if you have any of the following: ??? Any side effects from medications- rash, cough, dizziness, leg cramps, nausea or blurred vision. ??? Your procedure site starts to bleed- lie down and put pressure on the incision site for 30 minutes: if bleeding does not stop, seek transportation to the nearest emergency department. Do not drive yourself. ??? Your incision looks swollen, redor has pus coming from it. This may mean that the site is infected. ??? You have a fever of 101 degrees or higher. ??? You are having a lot of pain at the procedure site, in your belly or back. ?? * Sandeep Bonilla DO: PERFORM Event Display: Patient Education Leaflets Authored Date: [id number] Pacemakers ?? [id number] Pacemakers A pacemaker is a small electronic device that keeps your heart rate from going too slow. It makes sure that your heart beats at the appropriate time. Inserting the pacemaker into your body is called implantation. There are several different types of pacemakers. Your healthcare provider will explainwhich type of pacemaker is best for you. How do I get ready for a pacemaker procedure? Follow any directions you are given for not eating or drinking before surgery. ??? Tell your healthcare provider about any allergies to medicines, shellfish or iodine contrast, tape or adhesives, or antibiotic soaps. Other options can be provided and precautions can be taken to avoid exposing you to anything that you are allergic to. ??? Follow your healthcare provider's instructions on what medicines to take. If you are taking a blood thinning medicine, your healthcare provider may tell you to stop it before the procedure. This is to decreasethe risk of major bleeding. You may be told to stop medicines that interact with the contrast dye that is used during the procedure. ??? You may be asked to shower with antibacterial soap the night before your procedure and the morning of the procedure. Ask your healthcare provider what kind of soap to use. ??? Your healthcare provider may ask you to use clean bed sheets and pajamas the night before the procedure. This can reduce the risk of infection. ??? You may be given an antibiotic throughan IV (intravenous) line to also protect you from infection after the implant procedure. ??? You will have blood drawn depending on your overall health. If your kidneys are not healthy, special caremay be needed before the procedure. ??? If you are a woman of child-bearing age, you may be asked to take a test before the procedure. ?? What happens during the procedure? Your healthcare provider may prescribe a medicine to help you relax and to prevent pain during the procedure. ??? An IV line will be placed in the arm on the same side of the procedure site. ??? A local anesthetic is given by injection to numb the area where the pacemaker will be inserted. This keeps you from feeling pain during the procedure. ??? The healthcare provider will make a cut (incision) where the generator is placed. ??? The healthcare provider will guide the wire (lead) through a vein into your heart???s chambers using X-ray monitors. ??? Thehealthcare provider will attach the pacemaker generator??to the lead or leads and test the device. ??? The healthcare provider will close the incision site with stitches. They may also seal the site with a surgical glue to prevent infection. ??? A dressing may be applied to your incision. This is to reduce the risk of bleeding and protect it from infection. ??? The pacemaker???s settings are programmed to help your heart beat at a rate that???s right for you. ?? What happens after the procedure? You will have a chest X-ray while you are in the recovery area. ??? Your pacemaker settings will be rechecked. ??? Your healthcare provider may prescribe antibiotics to take after the procedure to prevent infection. ??? Follow the instructions you are given forcaring for the implantation site. You may be told not to raise the arm on that side for a certain period. You may have a sling to keep you from moving your arm on the incision side. This is done to prevent the new pacemaker wire from becoming displaced. Your healthcare provider will tell you how long and when you should wear this. ??? Take your temperature and check your incision for signs of infe ction every day for a week. ??? Return for a follow-up visit as advised. ??? Ask your healthcare provider when it will be safe to shower, bathe, or swim. Generally, you should not soak in water for about a week to prevent the incision from softening, opening, or becoming infected. ??? Don't do any activities that would put pressure on your incision site or cause irritation to the incision. Don't use lotions, powders, or ointments unless your healthcare provider says it's OK. Don't carry a purseor backpack that would put pressure on your incision site. ?? Pacemakers and electronics Be careful when using cell phones and other electronic devices. Keep them at least 6 inches away from your pacemaker. It's safest to hold all cell phones to the ear farther from your pacemaker or usethe speaker mode setting. Don???t carry your phone or electronic device in your chest pocket, over the pacemaker. Experts advise carrying your cell phone and other electronics in a pocket or bag below your waist. Most cell phones and electronic devices don't interfere with pacemakers. But some cellphones and electronic devices such as smart watches use powerful magnets for wireless charging. These may interfere with the normal function of your pacemaker. The magnet used for charging or other magnet accessories can also interfere with the normal function of your pacemaker. These devices should be kept at least 12 inches away from your pacemaker when wirelessly charging or stored. Follow anyother instructions given to you by your healthcare provider or from the surgical product sales consultant of your pacemaker. ?? When to call your healthcare provider Call your healthcare provider right away if you have any of the following: ??? You feel any of the symptoms you had before the pacemaker was implanted, such as lack of energy. ??? Your chest or abdominal muscles twitch. ??? You have hiccups that won't stop. ??? You have a rapid or pounding heartbeat or shortness of breath. ??? You feel pain in the area around your pacemaker. ??? You have a fever of 100.4??F (38??C) or higher (or 1 degree or higher above your normal temperature) , or as directedby your healthcare provider. ??? You have redness, severe swelling, drainage, bleeding, or warmth at the incision site. ??? Your incision site is not healing, or it separates or opens. ??? Your pacemaker generator feels loose or like it is wiggling in the pocket under the skin. ??? You need an MRI for any reason. In some cases, it's not safe to have an MRI with a pacemaker. ?? Call 911 Call 911 if you have: ??? Chest pain ??? Severe trouble breathing ??? Dizziness, lightheadedness, or fainting spells ?? Last Reviewed Date: 2023 00:00:00 ?? [id number] [employer]. All rights reserved. This information is not intended as a substitute for professional medical care. Always follow your healthcare professional's instructions. ?? * Sandeep Bonilla DO: PERFORM Event Display: Patient Education Leaflets Authored Date: [id number] Carvedilol ?? [id number] Carvedilol Brand Name(s): Coreg??, Coreg?? CR; also available generically ?? WHY is this medicine prescribed? Carvedilol is used alone or in combination with other medications to treat heart failure (conditionin which the heart cannot pump enough blood to all parts of the body) and high blood pressure. It also is used to improve survival after a heart attack. Carvedilol is often used in combination with other medications. Carvedilol is in a class of medications called beta-blockers. It works by relaxingblood vessels and slowing heart rate to improve blood flow and decrease blood pressure High blood pressure is a common condition and when not treated, can cause damage to the brain, heart, blood vessels, kidneys and other parts of the body. Damage to these organs may cause heart disease, a heart attack, heart failure, stroke, kidney failure, loss of vision, and other problems. In addition to taking medication, making lifestyle changes will also help to control your blood pressure. These changes include eating a diet that is low in fat and salt, maintaining a healthy weight, exercising at least 30 minutes most days, not smoking, and using alcohol in moderation. HOW should this medicine be used? Carvedilol comes as a tablet and an extended-release (long-acting) capsule to take by mouth. The tablet is usually taken twice a day with food. The extended- release capsule is usually taken once a day in the morning with food. Try to take carvedilol at around the same time(s) every day. Follow the directions on your prescription label carefully, and ask your doctor or pharmacist to explain any part you do not understand. Take carvedilol exactly as directed. Do not take more or less of it or take it more often than prescribed by your doctor. Swallow the extended-release capsules whole. Do not chew or crush the capsules, and do not divide the beads inside a capsule into more than one dose. If you are unable to swallow the capsules, you may carefully open a capsule and sprinkle all of the beads it contains over a spoonful of cool or roomtemperature applesauce. Swallow the entire mixture immediately without chewing. Your doctor will probably start you on a low dose of carvedilol and gradually increase your dose toallow your body to adjust to the medication. Talk to your doctor about how you feel and about any symptoms you experience during this time. Carvedilol may help to control your condition but will not cure it. Continue taking carvedilol evenif you feel well. Do not stop taking carvedilol without talking to your doctor. If you suddenly stop taking carvedilol, you may experience serious heart problems such as severe chest pain, a heart attack, or an irregular heartbeat. Your doctor will probably want to decrease your dose gradually over1 to 2 weeks. Your doctor will watch you carefully and will probably tell you to avoid physical activity during this time. Are there OTHER USES for this medicine? This medication may be prescribed for other uses. Ask your doctor or pharmacist for more information. What SPECIAL PRECAUTIONS should I follow? Before taking carvedilol, The following nonprescription or herbal products may interact with carvedilol: [place]'s Wort. Be sure to let your doctor and pharmacist know that you are taking this medication before you start taking carvedilol. Do not start this medication while taking carvedilol without discussing with your healthcare provider. ??? tell your doctor and pharmacist if you have are allergic to carvedilol, any other medications, or any of the ingredients in carvedilol tablets and extended- release capsules. Ask your pharmacist for a list of the ingredients. ??? tell your doctor and pharmacist what prescription and nonprescription medications, vitamins, herbal products, and nutritional supplements you are taking or plan to take while taking carvedilol. Your doctor may need to change the doses of your medications or monitoryou carefully for side effects. ??? tell your doctor if you have or have ever had asthma or other breathing problems, a slow or irregular heartbeat, heart failure, or liver disease. Your doctor may tell you not to take carvedilol. ??? tell your doctor if you have or have ever had problems with blood flow in your feet or legs, diabetes or any other condition that causes you to have low blood sugar, hyperthyroidism (condition in which there is too much thyroid hormone in the body), low blood pressure, Prinzmetal's angina (chest pain that comes at rest with no obvious cause), pheochromocytoma (atumor that develops on a gland near the kidneys and may cause high blood pressure and fast heartbeat), or heart, kidney, or liver disease. Also tell your doctor if you have ever had a serious allergic reaction to a food or any other substance. ??? tell your doctor if you are , plan to become , or are breast-feeding. If you become while taking carvedilol, call your doctor.??? if you are having surgery, including dental or eye surgery, tell the doctor, dentist, or eye doctor that you are taking carvedilol. ??? you should know that this medication may make you feel tired, dizzy, or lightheaded, especially when you start taking carvedilol and when your dose is increased. Do not drive a car or operate machinery until you know how this medication affects you. Be especially careful during the first hour after you take the medication. ??? you should know that carvedilol may cause dizziness, lightheadedness, and fainting, especially when you get up too quickly from a lying position. This is more common when you first start taking carvedilol. To avoid this problem, get out of bed slowly, resting your feet on the floor for a few minutes before standing up. ??? you should know that carvedilol may increase the risk of hypoglycemia (low blood sugar) and prevent the warning signs and symptoms that would tell you that your blood sugar is low. Let your doctor know if you are unable to eat or drink normally or are vomiting while you are taking carvedilol. You should know the symptoms of low blood sugar and what to do if you have these symptoms. ??? you should know that if you have allergic reactions to different substances, your reactions may be worse while you are taking carvedilol, and your allergic reactions may not respond to the usual doses of injectable ep inephrine. ??? if you wear contact lenses, your eyes may become dry during your treatment with carvedilol. Tell your doctor if this becomes bothersome. What SPECIAL DIETARY instructions should I follow? Unless your doctor tells you otherwise, continue your normal diet. What should I do IF I FORGET to take a dose? Take the missed dose as soon as you remember it. However, if it is almost time for the next dose, skip the missed dose and continue your regular dosing schedule. Do not take a double dose to make up for a missed one. What SIDE EFFECTS can this medicine cause? Some side effects may be serious. If you experience any of the following symptoms, call your doctorimmediately: ??? fainting ??? shortness of breath ??? weight gain ??? swelling of the arms, hands, feet, ankles,or lower legs ??? chest pain ??? slow or irregular heartbeat ??? rash ??? hives ??? itching ??? swelling of the face, lips, tongue, or throat ??? difficulty breathing and swallowing Carvedilol may cause other side effects. Tell your doctor if you experience any unusual problems while you are taking this medication. If you experience a serious side effect, you or your doctor may send a report to the Food and Drug Administration's (FDA) MedWatch Adverse Event Reporting program online (https://www.fda.gov/Safety/MedWatch) or by phone ( ). What should I know about STORAGE and DISPOSAL of this medication? Keep this medication in the container it came in, tightly closed, and out of reach of children. Store it at room temperature and away from excess heat and moisture (not in the bathroom). It is important to keep all medication out of sight and reach of children as many containers (such as weekly pill minders and those for eye drops, creams, patches, and inhalers) are not child-resistant and young children can open them easily. To protect young children from poisoning, always lock safety caps and immediately place the medication in a safe location ??? one that is up and away and out of their sight and reach. https://www.[employer].org Unneeded medications should be disposed of in special ways to ensure that pets, children, and otherpeople cannot consume them. However, you should not flush this medication down the toilet. Instead,the best way to dispose of your medication is through a medicine take-back program. Talk to your pharmacist or contact your local garbage/recycling department to learn about take-back programs in your community. See the FDA's Safe Disposal of Medicines website (https://goo.gl/c4Rm4p) for more information if you do not have access to a take-back program. What should I do in case of OVERDOSE? In case of overdose, call the poison control helpline at . Information is also available online at https://www.poisonhelp.org/help. If the victim has collapsed, had a seizure, has trouble breathing, or can't be awakened, immediately call emergency services at 081. Symptoms of overdose may include: ??? slow heartbeat ??? dizziness ??? fainting ??? difficulty breathing ??? cough or wheezing ??? vomiting ??? loss of consciousness ??? seizures What OTHER INFORMATION should I know? Keep all appointments with your doctor and the laboratory. Your doctor may order certain laboratorytests to check your body's response to carvedilol. Do not let anyone else take your medication. Ask your pharmacist any questions you have about refilling your prescription. It is important for you to keep a written list of all of the prescription and nonprescription (kyeb-avl-dllvfrt) medicines you are taking, as well as any products such as vitamins, minerals, or otherdietary supplements. You should bring this list with you each time you visit a doctor or if you areadmitted to a hospital. It is also important information to carry with you in case of emergencies. This report on medications is for your information only, and is not considered individual patient advice. Because of the changing nature of drug information, please consult your physician or pharmacist about specific clinical use. The [employer] represents that the information provided hereunder was formulated with a reasonable standard of care, and in conformity with professional standards in the field. The [employer] makes no representations or warranties, express or implied, including, but not limited to, any implied warranty of merchantability and/or fitness for a particular purpose, with respect to such information and specifically disclaims all such warranties. Users are advised that decisions regarding drug therapy are complex medical decisions requiring the independent, informed decision of an appropriate health career law clerk, and the information is provided for informational purposes only. The entire monograph for a drug should be reviewed for a thorough understanding of the drug's actions, uses and side effects. The [employer] does not endorse or recommend the use of any drug.The information is not a substitute for medical care. AHFS?? Patient Medication Information???. ?? Copyright, 2023. The [employer]??, [address] [facility], [address], [place], [place]. All Rights Reserved. Duplication for commercial use must be authorized by [facility]. Selected Revisions: February 21, 2023. AHFS?? Patient Medication Information???. ?? Copyright, 2024 ?? * Event Display: Hemodynamic Procedure Report Authored Date: Admission evaluation note * Dominic MONET, Kamla Hernández: PERFORM Event Display: Admission Note Authored Date: [id number] Patient: ??KATHERINE MONTEZ ? Age:??74 Years?Sex:??Female?:??1950?? 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 Patient states that she initially went to her PCP today for setting of 3 days of right-sided headache and jaw pain.?? She was initially concerned she may have had a sinus infection.?? She was noted to be bradycardic at her PCPs office so she presented here.??He states 1 month ago she did have a syncopal episode where she passed out and broke her foot.?? She denies any dizziness or lightheadedness during today's episode, no chest pain or shortness of breath.?? No associated diaphoresis.?? No associated nausea or vomiting. ?? On arrival to the ED, she was noted to be bradycardic with a heart rate 26, blood pressure significantly elevated to 260-58, satting well on room air.?? Persistently bradycardic in the ED with heart rate in the high 20s.?? Initial EKG performed showed sinus rhythm with complete heart block and junctional bradycardia with narrow complexes with a ventricular rate of 29.?? Chest x-ray was performed after patient had a Cordis placed in the event that she may need transvenous pacing, so this is being and will position with some mild left basilar atelectasis but no other acute abnormalities.?? Repeat EKG performed on admission showed persistent A-V dissociation and junctional rhythm with heart rate 29 and nonspecific intraventricular conduction block.?? Patient was evaluated by EP who recommended provide pacemaker placement. ?? Echocardiogram performed showing mildly thickened left ventricular wall, LVEF of 55 to 60%, severely dilated left atrium, mild aortic regurgitation, mild mitral annular calcification with mild diastolic mitral regurg.?? Dilated IVC with poor respiratory collapse consistent with right atrial pressure elevation.?? Left- sided pleural effusion ?? Did have a syncopal episode 1 mo ago where she broke her foot. 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 ?? No significant family history of cardiac disease, though her mother did have??congestive heart failure. Review of Systems A full review of systems was completed and is otherwise negative except as mentioned in history of present illness. Objective Measurements?? Height: 168 cm (10/04/24) Weight: 84.5 kg (10/04/24) Dry Weight: 86 kg (10/04/24) Body Mass Index:??29.94 kg/m2??High (10/04/24) ? Vital Signs?? Temperature: 97.7 DegF (10/04/24 15:08:00) Temperature Route: Axillary (10/04/24 15:08:00) Pulse Rate:??36 bpm??Low (10/04/24 18:00:00) Respiratory Rate:??14 br/min??Low (10/04/24 18:00:00) Systolic Blood Pressure:??260 mm Hg??High (10/04/24 18:00:00) Diastolic Blood Pressure: 80 mm Hg (10/04/24 18:00:00) Blood pressure sites: Arm, left (10/04/24 18:00:00) Mean Arterial Pressure: 90 mm Hg (10/04/24 15:08:00) Pulse Pressure: 180 mm Hg (10/04/24 18:00:00) Oxygen Saturation: 96 % (10/04/24 18:00:00) Mode of Delivery (Oxygen): Room air (10/04/24 18:00:00) Early Warning Score: 2 (10/04/24 14:32:31) ? Physical Exam General:??Well-appearing. No acute distress HEENT:??Normocephalic. Atraumatic. Respiratory:??Lungs clear to auscultation bilaterally. No wheezes. Normal respiratory effort. Cardiovascular:??Sinus bradycardia.?S1, S2 normal. No murmurs. Peripheral pulses are 2+ bilaterally. Gastrointestinal:??Soft. Non-distended. Ileostomy in place well healed with output.?? Musculoskeletal:??No edema. Skin:??Warm, dry. No rashes. Neurological:??Alert, awake. Normal tone.?? Assessment/Plan Assessment:??74 yo female hx of neuropathy, HLD went to PCP this am for 3 days of R sided jaw pain found to have narrow complex High degree block with rates in 20s, also HTN urgency not currently treating due to heart block.?NEUROLOGY No acute concerns?? -Continue home gabapentin and meclizine? CARDIOVASCULAR Narrow complex AV block with bradycardia?? HLD?? Hypertension Initial EKG performed showed sinus rhythm with complete heart block and junctional bradycardia withnarrow complexes with a ventricular rate of 29. Possibily had similar symptoms 1 mo ago where she syncopied and broke her foot No known CAD or BBB contributing to conduction disease?? High degree AV block with 2:1 conduction and pauses on telemetry, asymtptomatic while here?? Normal perfusion labs on admission? Plan: -Cordis placed, plan for TVP if becomes symptomatic or having pauses >6sec - Planned PPM Monday?? - Pads in place, Zoll kept at bedside - Continue home atorvastatin?? - Permitting HTN for now, if any signs of end organ damage or symptoms place A line and start nicardipine drip goal SBP >160 or higher?? - Check lyme, NE Panel ?? PULMONARY No acute concerns? RENAL No acute??concerns? Plan: -Monitor I+O -Renally dose meds -Avoid nephrotoxins ?? GASTROENTEROLOGY Hx of ileostomy? Plan: -Diet: Cardiac?? -PRN bowel regimen - Patient states she takes Imodium BID at home for high ostomy output, ordered/? INFECTIOUS DISEASE No acute concerns? HEMATOLOGY No acute concerns? Plan: -Daily CBC -Monitor for signs of bleeding ?? Diet: Cardiac DVT ppx:??SCDs 2/2??HTN Code status: FULL ?? Patient care discussed with Dr. Barrett?? Kamla Alfaro, PGY - 3 Internal Medicine/Pediatrics? (This document has been dictated using Weele dictation software. Please do not hesitate to contactthe author for clarification of any unintentional errors should it be needed.)? Histories Allergies Allergies ?(Active and Proposed Allergies Only) NKA? (Severity: Unknown severity, Onset: Unknown) ? Past Medical History/Problem List No problems documented. ? Past Surgical History No surgery history documented. ? Social History No social history documented. ? Family History No Family History documented. ? Medications Home Medications Atorvastatin (atorvastatin 10 mg oral tablet)??1 tab(s) 10 Milligram By Mouth Daily at bedtime Gabapentin (gabapentin 100 mg oral capsule)??TAKE 1 CAPSULE(S) BY MOUTH THREE TIMES A DAY AND TAKE 2 CAPSULE(S) BY MOUTH AT BEDTIME Meclizine (meclizine 12.5 mg oral tablet)??1 tab(s) 12.5 Milligram By Mouth 3 times a day as neededas needed for dizziness ? Results Recent Labs BLOOD BANK Blood Type B Negative ()?? 10/04/2024 12:07 Antibody Screen Negative ()?? 10/04/2024 12:07 ?? BLOOD COUNT & DIFF WBC 9.2 k/mm3 ()?? 10/04/2024 12:20 RBC 4.55 m/mm3 ()?? 10/04/2024 12:20 Hgb 12.8 Gm/dL ()?? 10/04/2024 12:20 Hct 41.4 % ()?? 10/04/2024 12:20 MCV 91.0 femtoliters ()?? 10/04/2024 12:20 MCH 28.1 pg ()?? 10/04/2024 12:20 MCHC 30.9 Gm/dL (Low)?? 10/04/2024 12:20 Platelet Count 173 k/mm3 ()?? 10/04/2024 12:20 RDW-SD 44.5 femtoliters ()?? 10/04/2024 12:20 MPV 11.0 femtoliters ()?? 10/04/2024 12:20 Nucleated RBC (Automated) 0.0 #/100 WBC'S ()?? 10/04/2024 12:20 Abs. NRBC 0.0 k/mm3 ()?? 10/04/2024 12:20 Abs. Neut 6.0 k/mm3 ()?? 10/04/2024 12:20 Abs. Lymph 2.3 k/mm3 ()?? 10/04/2024 12:20 Abs. Luce 0.6 k/mm3 ()?? 10/04/2024 12:20 Abs. Eo 0.2 k/mm3 ()?? 10/04/2024 12:20 Abs. Baso 0.0 k/mm3 ()?? 10/04/2024 12:20 Neut % 65.9 % ()?? 10/04/2024 12:20 Lymph % 25.2 % ()?? 10/04/2024 12:20 Luce % 6.3 % ()?? 10/04/2024 12:20 Eos % 2.0 % ()?? 10/04/2024 12:20 Baso % 0.4 % ()?? 10/04/2024 12:20 Hemoglobin (POC) POC Cartridge 14.3 Gm/dL ()?? 10/04/2024 12:02 Hematocrit (POC) POC Cartridge 42 % ()?? 10/04/2024 12:02 Imm Gran 0.2 % ()?? 10/04/2024 12:20 Abs. Imm Gran 0.0 k/mm3 ()?? 10/04/2024 12:20 ?? BLOOD GAS pH Venous (POC) POC Cartridge 7.37 ()?? 10/04/2024 12:02 pCO2 Venous (POC) POC Cartridge 42.1 mm Hg ()?? 10/04/2024 12:02 pO2 Venous (POC) POC Cartridge 22 mm Hg (Low)?? 10/04/2024 12:02 Est Bicarbonate (POC) POC Cartridge 24.4 mmol/L ()?? 10/04/2024 12:02 % O2 Sat Venous (POC) POC Cartridge 37 ()?? 10/04/2024 12:02 Base Excess (POC) POC Cartridge NEGATIVE 1 ()?? 10/04/2024 12:02 Specimen Type - Blood Gas VENOUS ()?? 10/04/2024 12:02 ?? CHEM GENERAL Sodium 147 mmol/L (High)?? 10/04/2024 15:46 Potassium 3.8 mmol/L ()?? 10/04/2024 15:46 Chloride 113 mmol/L (High)?? 10/04/2024 15:46 Bicarbonate Level 21 mmol/L (Low)?? 10/04/2024 15:46 Anion Gap 13 mmol/L ()?? 10/04/2024 15:46 Sodium (POC) POC Cartridge 141 mmol/L ()?? 10/04/2024 12:02 Potassium (POC) POC Cartridge 5.3 mmol/L (High)?? 10/04/2024 12:02 Glucose Level 81 mg/dL ()?? 10/04/2024 15:46 Glucose (POC) POC Cartridge 80 ()?? 10/04/2024 12:02 Glucose, POC 81 mg/dL ()?? 10/04/2024 11:47 BUN 20 mg/dL ()?? 10/04/2024 15:46 Creatinine-Blood 1.84 mg/dL (High)?? 10/04/2024 15:46 Estimated GFR Creatinine 29 ML/MIN/1.73 M2 ()?? 10/04/2024 15:46 Calcium 8.2 mg/dL (Low)?? 10/04/2024 15:46 Ionized Calcium (POC) POC Cartridge 1.13 mmol/L ()?? 10/04/2024 12:02 Phosphorus 3.6 mg/dL ()?? 10/04/2024 15:46 Magnesium 2.0 mg/dL ()?? 10/04/2024 15:46 Protein, Total 6.8 Gm/dL ()?? 10/04/2024 12:20 Albumin 3.8 Gm/dL ()?? 10/04/2024 12:20 AG Ratio 1.3 ()?? 10/04/2024 12:20 Alkaline Phosphatase 82 units/L ()?? 10/04/2024 12:20 AST (SGOT) 25 units/L ()?? 10/04/2024 12:20 ALT (SGPT) 13 units/L ()?? 10/04/2024 12:20 Bilirubin, Total 0.5 mg/dL ()?? 10/04/2024 12:20 Lactate 1.0 mmol/L ()?? 10/04/2024 15:46 ?? ENDOCRINE/TUMOR MARKER TSH 2.40 uIU/mL ()?? 10/04/2024 12:20 ?? URINE OTHER Est Creatinine Clearance 26.01 mL/min ()?? 10/04/2024 16:41 ?? VIROLOGY Influenza A PCR NEGATIVE ()?? 10/04/2024 12:04 Influenza B PCR NEGATIVE ()?? 10/04/2024 12:04 RSV PCR NEGATIVE ()?? 10/04/2024 12:04 COVID-19 PCR Result NEGATIVE ()?? 10/04/2024 12:04 ? EKG study * Event Display: ECG 12-Lead Authored Date: [id number] Please click on pdf link to open report * Event Display: ECG 12-Lead Authored Date: [id number] Ventricular Rate: 72 BPM Atrial Rate: 72 BPM P-R Interval: 184 ms QRS Duration: 138 ms Q-T Interval: 468 ms QTC Calculation(Bazett): 512 ms P [place]: 55 degrees R [place]: 99 degrees T [place]: 6 degrees Atrial-sensed ventricular-paced rhythm Abnormal ECG When compared with ECG of 06-Oct-2024 07:36, Electronic ventricular pacemaker has replaced Idioventricular rhythm Vent. rate has increased by 44 bpm Confirmed by Bridger Slaughter ([id number]) on 10/08/2024 7:56:48 AM [place]: Bridger Slaughter * Event Display: ECG 12-Lead Authored Date: [id number] Please click on pdf link to open report * Event Display: ECG 12-Lead Authored Date: [id number] Ventricular Rate: 28 BPM Atrial Rate: 76 BPM QRS Duration: 140 ms Q-T Interval: 666 ms QTC Calculation(Bazett): 453 ms P [place]: 55 degrees R [place]: 43 degrees T [place]: 71 degrees Critical Test Result: Arrhythmia , AV Block Sinus rhythm with complete heart block and Idioventricular rhythm Right bundle branch block Abnormal ECG When compared with ECG of 05-Oct-2024 08:03, Idioventricular rhythm is more likely than Junctional rhythm Confirmed by Bridger Slaughter ([id number]) on 10/06/2024 8:32:32 AM [place]: Bridger Slaughter * Event Display: EKG Authored Date: [id number] * Event Display: ECG 12-Lead Authored Date: [id number] Please click on pdf link to open report * Event Display: ECG 12-Lead Authored Date: [id number] Ventricular Rate: 29 BPM Atrial Rate: 75 BPM QRS Duration: 114 ms Q-T Interval: 664 ms QTC Calculation(Bazett): 461 ms P [place]: 59 degrees R [place]: 51 degrees T [place]: 77 degrees Critical Test Result: AV Block Sinus rhythm with complete heart block and Junctional bradycardia Incomplete right bundle branch block Nonspecific ST and T wave abnormality Abnormal ECG When compared with ECG of 04-Oct-2024 15:08, No significant change was found Confirmed by SALENA ART MD ([id number]) on 10/05/2024 4:33:23 PM [place]: SALENA ART MD Heart * Event Display: Echocardiogram - Complete Authored Date: [id number] Transthoracic Echocardiography Report (TTE) Patient Demographics Patient Name KATHERINE MONTEZ Date of Study 10/04/2024 Corporate Gender Female Facility Race .[id number] Ethnicity Date of 1950 Height: 65.75 inches Age 74 year(s) Weight: 187.38 pounds Accession Number [id number] BSA: 1.94 m2 Room Number [id number] BMI: 30.48 kg/m2 Referring Not on Staff Referring Interpreting Nohelia Ibanez MD Physician Physician Deepthi Gleason MD Commissioner Of Officials Dillon Stubbs Indications Arrhythmia. Study Data Type of Study TTE procedure:Echo Complete-Doppler, Colorflow, M-Mode. Study Date10/04/2024 Start Time: 03:55 PM Study Location: [facility] [place] Adult Echo Study Status: ICU/CCU Patient Status: Routine Technical Quality: Technically difficult due to body habitus. Blood Pressure:125/72 mmHg EKG: Conduction defect 2D Measurements LV Diastolic Dimension: 5 cm LV Septum Diastolic: 1.13 cm AO Root Dimension: 3.67 cm LV PW Diastolic: 1.28 cm LA ESV (BP):99 ml LA ESV Index: 51 ml/m2 LVOT Stroke Volume: 126.76 ml LVOT: 2.16 cm Stroke Volume Index65.34 ml/m2 Ascending Aorta:3.75 cm Doppler Measurements AV Peak Velocity: 215 cm/s AV Peak Gradient: 18.49 mmHg AV Mean Gradient: 7 mmHg AV VTI:47.3 cm LVOT Peak Velocity: 191 cm/s LVOT VTI34.61 cm AV Area (Continuity):2.68 cm2 Cardiac Anatomy Left Ventricle/Interventricular Septum The left ventricular size is at the upper limit of normal. The left ventricular wall thickness is mildly increased. The LV systolic function is normal . The left ventricular ejection fraction is 55-60 %. No obvious wall motion abnormalities seen on limited views. Unable to assess diastolic function . Left Atrium/Interatrial Septum The left atrium is severely dilated. Aortic Valve The aortic valve is trileaflet . The aortic valve appears mildly calcified. The aortic valve leaflet opening is mildly decreased . There is no significant aortic stenosis. There is mild aortic regurgitation. Mitral Valve There is mild mitral annular calcification. There is diastolic mitral regurgitation. Aorta The ascending aorta and aortic root are normal in size for BSA. Right Ventricle The right ventricle is normal in size. Right ventricular systolic function appears preserved. Right Atrium The right atrium is normal in size. Pulmonic Valve The pulmonic valve appears grossly normal. Tricuspid Valve The tricuspid valve is grossly normal. There is diastolic tricuspid regurgitation. Pumonary Artery An accurate pulmonary artery pressure could not be obtained. Venous Structures The inferior vena cava is mildly dilated with poor inspiratory collapse consistent with elevated right atrial pressures. Pericardium/Extracardiac There is no significant pericardial effusion. There is a left-sided pleural effusion. Summary The left ventricular size is at the upper limit of normal. The left ventricular wall thickness is mildly increased. The LV systolic function is normal . The left ventricular ejection fraction is 55-60 %. No obvious wall motion abnormalities seen on limited views. Unable to assess diastolic function . The left atrium is severely dilated. The aortic valve is trileaflet . The aortic valve appears mildly calcified. The aortic valve leaflet opening is mildly decreased . There is no significant aortic stenosis. There is mild aortic regurgitation. There is mild mitral annular calcification. There is diastolic mitral regurgitation. The right ventricle is normal in size. Right ventricular systolic function appears preserved. The inferior vena cava is mildly dilated with poor inspiratory collapse consistent with elevated right atrial pressures. There is a left-sided pleural effusion. Comparison No prior study available for comparison. Signature * Event Display: Echocardiogram - Complete Authored Date: Cardiology * Event Display: Cardiac Rhythm Strips Authored Date: * Event Display: Cardiac Rhythm Strips Authored Date: * Event Display: Cardiac Rhythm Strips Authored Date: * Event Display: Cardiac Rhythm Strips Authored Date: Hospital Progress note * Phil Nieves: PERFORM Event Display: Progress Note Hospital Authored Date: Patient: ??KATHERINE MONTEZ ? Age:??74 Years?Sex:??Female?:??1950?? History of Present Illness/Interval History Patient seen and examined at bedside HD stable No acute overnight event Review of Systems 12 point review of symptoms as noted in the??HPI and reviewed in detail with the patient; pertinentpositives noted otherwise??negative. Physical Exam Vitals & Measurements T:??97.6?F?? HR:??65??(Monitored)?? RR:??12?? BP:??121/77?? SpO2:??96%?? HT:??168??cm?? WT:??82??kg?? BMI:??29.94?? Weight lb/oz: 180 lb 12 oz Gen: well appearing, NAD HEENT: mmm, no oral exudates Neck: Normal JVD CV: rrr, no m/r/g Abd: soft, NT, ND Lungs/chest: normal breath sounds, no crackles or wheezes Extremities: no pitting edema, 2+ pulses Neuro: moving all 4 extremities spontaneously Skin: no rash Assessment/Plan 74-year-old female with past medical history of hypertension, hyperlipidemia, and obesity who initially presented to the emergency department complaining of headache.?? Upon arrival she was found hypertensive with systolic blood pressure over 200.?? During triage, she was found bradycardic and EKG was concerning for high degree AV block with a heart rate in the low 30s.?? Patient denies any active symptoms such as lightheadedness, dizziness, shortness of breath or chest pain.?? She reported having a syncopal episode about a month ago and went to the bathroom.?? Prior to passing out, she experienced lightheadedness and weakness ?? Plan: 1. CHB -Recent EKGs are consistent with??complete heart block??with a stable??escape rhythm??around 30s.?? - Patient underwent [employer] pacemaker. Post procedure hospitalization was uneventful. Tele revealed paced rhythm, and patient ??denied chest pain, shortness of breath, headache, palpitations, all other systems were reviewed and negative. Chest X-Day showed proper leads and device placement with no signs of pneumothorax. Device interrogation showed normal functioning??with no new events. ??I discussed with patient??device functioning and post care??instructions. She will follow-up??in the Device clinic for wound check within??2 weeks. ? Thank you for allowing us to participate in the care of this patient. EP will sign off at this time. Please call if any questions/concerns or further services needed. ?? Patient seen and discussed with Dr. Martinez. ?? Phil Eli PA-C Cardiac Electrophysiology ?? I personally spent a total of??50 minutes, including both [id number] and [id number]-face time onthe date of the encounter, addressing the above diagnoses, and answering all questions.? Available by Apaja.?? Please note that this document was generated with the assistance of??MISTY?voice recognition technology, and may contain vocabulary/syntax errors.?Please do not hesitate to contact me in case of any questions or concerns? Problem List/Past Medical History Ongoing No qualifying data Procedure/Surgical History No qualifying data available. Hospital Medications Medications (15) Active SCHEDULED: (7) Amlodipine 10 mg Tablet (amLODIPine 5 mg oral tablet) ??10 mg, By Mouth, Daily Carvedilol 3.125 mg Tablet (carvedilol 3.125 mg oral tablet) ??3.125 mg, By Mouth, 2 times a day CeFAZolin 2 Gm Inj (ceFAZolin Inj) ??2 Gm, IV Push, call or contact centre team leader to Procedure CeFAZolin 2 Gm Inj (ceFAZolin Inj) ??2 Gm, IV Push, Every 8 hours Gabapentin 100 mg Capsule (gabapentin 100 mg oral capsule) ??100 mg, By Mouth, Daily at bedtime Gabapentin 100 mg Capsule (gabapentin 100 mg oral capsule) ??100 mg, By Mouth, 3 times a day Loperamide 2 mg Capsule (Imodium Capsule) ??2 mg, By Mouth, 2 times a day CONTINUOUS: (2) NaCL 0.9% (500 mL) Cont IV 500 mL (NaCL 0.9% 500 mL) ??500 mL, IV Infusion, 10 mL/hr NaCL 0.9% (500 mL) Cont IV 500 mL (Bolus NaCL 0.9% 500 mL) ??500 mL, IV Infusion PRN: (6) Acetaminophen 325 mg Tablet (Acetaminophen Tablet) ??650 mg, By Mouth, Every 4 hours Al hydroxide/Mg hydroxide/simethicone 200 mg-200 mg-20 mg/5 mL Susp UD (Maalox Plus Liquid) ??30 mL, By Mouth, Every 2 hours Docusate Sodium 100 mg Capsule (Docusate Sodium Capsule) ??100 mg 1 capsule, By Mouth, 2 times a day Magnesium Hydroxide 8% Susp UD (Milk of Magnesia Liquid) ??30 mL, By Mouth, 2 times a day Meclizine 12.5 mg Tablet (meclizine 12.5 mg oral tablet) ??12.5 mg, By Mouth, 3 times a day NaCl 0.9% Flush 3ml (NaCL 0.9% Flush) ??3 mL, IV Push, Every 8 hours Lab Results Cardiology Labs Blood Count & Diff?? General Chemistry?? Cardiac?? WBC: 9.8 k/mm3 (10/08/24) Sodium: 143 mmol/L (10/08/24) Bilirubin, Total: 0.4 mg/dL (10/08/24) RBC:??4.18 m/mm3??Low (10/08/24) Potassium: 3.8 mmol/L (10/08/24) ?? Hgb: 11.8 Gm/dL (10/08/24) Chloride:??108 mmol/L??High (10/08/24) ?? Hct: 37.9 % (10/08/24) Bicarbonate Level: 22 mmol/L (10/08/24) ?? MCV: 90.7 femtoliters (10/08/24) Anion Gap: 13 mmol/L (10/08/24) ?? Platelet Count: 155 k/mm3 (10/08/24) Glucose Level: 79 mg/dL (10/08/24) ? BUN: 23 mg/dL (10/08/24) ? Creatinine-Blood:??1.82 mg/dL??High (10/08/24) ? Estimated GFR Creatinine: 29 ML/MIN/1.73 M2 (10/08/24) ? Calcium: 8.6 mg/dL (10/08/24) ? Magnesium: 2.2 mg/dL (10/08/24) ? Protein, Total:??6 Gm/dL??Low (10/08/24) ? Albumin:??3.2 Gm/dL??Low (10/08/24) ? Alkaline Phosphatase: 70 units/L (10/08/24) ? AST (SGOT):??37 units/L??High (10/08/24) ? ALT (SGPT): 17 units/L (10/08/24) ?? Diagnostic Impression ECG ECG 12-Lead ?? 07:15:28 Please click on pdf link to open report ?? Signed By: Bridger Slaughter MD ?? ECG 12-Lead ?? 07:15:28 Ventricular Rate: 72 BPM Atrial Rate: 72 BPM P-R Interval: 184 ms QRS Duration: 138 ms Q-T Interval: 468 ms QTC Calculation(Bazett): 512 ms P [place]: 55 degrees R [place]: 99 degrees T [place]: 6 degrees Atrial-sensed ventricular-paced rhythm Abnormal ECG When compared with ECG of 06-Oct-2024 07:36, Electronic ventricular pacemaker has replaced Idioventricular rhythm Vent. rate has increased by 44 bpm Confirmed ?? Signed By: Sukhjinder MONET, Bridger Asencio Stress Test No qualifying data available. Echo Echocardiogram - Complete ?? 15:55:05 Summary The left ventricular size is at the upper limit of normal. The left ventricular wall thickness is mildly increased. The LV systolic function is normal . The left ventricular ejection fraction is 55-60 %. No obvious wall motion abnormalities seen on limited views. Unable to assess diastolic function . ?? The left atrium is severely dilated. ?? The aortic valve is trileaflet . The aortic valve appears mildly calcified. The aortic valve leaflet opening is mildly decreased . There is no significant aortic stenosis. There is mild aortic regurgitation. ?? There is mild mitral annular calcification. There is diastolic mitral regurgitation. ?? The right ventricle is normal in size. Right ventricular systolic function appears preserved. ?? The inferior vena cava is mildly dilated with poor inspiratory collapse consistent with elevated right atrial pressures. ?? There is a left-sided pleural effusion. ?? Comparison No prior study available for comparison. ?? Signature ?? Signed By: Nohelia MONET, Sandeep Felton DO: PERFORM Event Display: Progress Note Hospital Authored Date: [id number] Patient: ??KATHERINE MONTEZ ? Age:??74 Years?Sex:??Female?:??1950?? Patient Information Discharge Location: [facility] [place] Primary Care Physician: Wali Harris MD Admit Date/Time: 10/04/2024 12:29 Discharge Disposition Discharge Disposition: Home: No Services Discharge Diagnosis Complete heart block (I44.2) Hypertension (I10) Hyperlipemia (E78.5) _ Discharge Medications Amlodipine (amLODIPine 5 mg oral tablet)??10 Milligram By Mouth Daily Atorvastatin (atorvastatin 10 mg oral tablet)??1 tab(s) 10 Milligram By Mouth Daily at bedtime Carvedilol (carvedilol 3.125 mg oral tablet)??3.125 Milligram By Mouth 2 times a day Gabapentin (gabapentin 100 mg oral capsule)??TAKE 1 CAPSULE(S) BY MOUTH THREE TIMES A DAY AND TAKE 2 CAPSULE(S) BY MOUTH AT BEDTIME Meclizine (meclizine 12.5 mg oral tablet)??1 tab(s) 12.5 Milligram By Mouth 3 times a day as neededas needed for dizziness ? Medications Started Amlodipine (amLODIPine 5 mg oral tablet)??10 Milligram By Mouth Daily Carvedilol (carvedilol 3.125 mg oral tablet)??3.125 Milligram By Mouth 2 times a day Medications Discontinued None Doses Changed None PCP Follow-Up/Heads-Up Follow-up blood pressure control Follow-up headache Future Appointments Monday 10:30 AM EDT ?? Where: [facility] [address] [place] [address]- Status: Pending Hospital Course Assessment and Plan 74 yo female hx of neuropathy, HLD went to PCP??10/04 for 3 days of R sided jaw pain found to have narrow complex High degree block with rates in 20s, also HTN urgency not currently treating due to heart block. 10/07 Patient underwent successful placement of pacemaker.?? 10/08 patient with improved headache as well as blood pressure.?? At this point patient is appropriate for discharge. ?? NEUROLOGY # Headache Patient continues to complain of mild headache, although improving, with systolic blood pressures now in the 150-160 range. ?? Recommendations: -Tylenol as needed for headache ?? CARDIOVASCULAR # Narrow complex AV block with bradycardia?? # HLD?? # Hypertension Initial EKG performed showed sinus rhythm with complete heart block and junctional bradycardia withnarrow complexes with a ventricular rate of 29. Possibly had similar symptoms 1 mo ago where she syncopized and broke her foot No known CAD or BBB contributing to conduction disease?? High degree AV block with 2:1 conduction and pauses on telemetry, asymptomatic while here?? Normal perfusion labs on??in the event TVP is required Tick panel negative. 10/07??successful pacemaker placement 10/08??patient with improved blood pressure. ?? Systolic blood pressures in the low to mid 200s, and this is associated with a headache.??At this time we will??likely continue altering antihypertensive to bring her down her pressures??by 15 to 20%, slowly over the next couple of hours. Anti-hypertensive choice limited by Cr 2.02 She is likely going for permanent pacemaker on Monday, EP is aware of this patient.?Continuing her home??atorvastatin at this time.??If any??pauses greater than 6 seconds??will initiate TVP.? Recommendations: -??Amlodipine 10mg daily -Carvedilol 3.125 mg twice daily - Continue home atorvastatin? GASTROENTEROLOGY # Hx of ileostomy?? Patient states she takes Imodium BID at home for high ostomy output Ileostomy??required??status post??hernia surgery complicated by infection Ileostomy site??appears clean and intact, although output has transitioned to a thicker pasty consistency. To avoid obstruction, will hold immodium??today and re-evaluate starting tomorrow. ?? Recommendations: -Continue home regimen ?? Patient seen and discussed with attending, Dr. Schaefer ?? Sandeep Bonilla DO PGY1??Emergency Medicine ?? Objective Vital Signs?? Temperature: 97.6 DegF (10/08/24 08:00:00) Temperature Route: Oral (10/08/24 08:00:00) Pulse Rate: 64 bpm (10/08/24 09:28:00) Heart Rate Monitored: 70 bpm (10/08/24 09:00:05) Respiratory Rate: 20 br/min (10/08/24 09:00:05) Systolic Blood Pressure:??160 mm Hg??High (10/08/24 09:28:00) Diastolic Blood Pressure:??93 mm Hg??High (10/08/24 09:28:00) Blood pressure sites: Arm, right (10/08/24 09:00:00) Pulse Pressure: 67 mm Hg (10/08/24 09:00:00) Oxygen Saturation: 96 % (10/08/24 09:00:05) Mode of Delivery (Oxygen): Room air (10/08/24 09:00:00) ? . Physical Exam General:??Stated age female sitting comfortably in hospital bed no apparent distress HEENT:??Normocephalic, atraumatic, moist mucous membranes, gaze symmetric Cardiac:??Bradycardic, regular,??2 out of 6 systolic??murmur heard??best at the??right second intercostal space at the sternal border??radiating to the??right??carotid Abdomen/GI:??Ileostomy bag??with??brown pasty output,??no erythema or tenderness ileostomy site,??prior??hernia repair on the ventral aspect of the central abdomen, nontender, nondistended MSK/Derm:??No obvious deformities,??4 out of 5 strength that she says is her baseline,??no??acute rashes or lesions Neuro:??A and O x 4,??no focal neuro deficit [facility] Electrophysiology Patient Education Titles [employer] Patient Education - New Pacer Instructions?? [facility] [facility] Patient Education - Pacemakers?? [employer] Patient Education - Carvedilol?? [employer] Patient Education - Amlodipine?? Follow-Up Appointments Added Follow Up ?Time Frame ?Comments Wali Harris MD?1-2 day: call to discuss follow up visit Patient Instructions You were seen and evaluated??at [facility]??after you are found??to have a very slow heart rate.?? You were found to??be in??something called a complete heart block. ??Since you are having a very slow heart rate??we have??placed??a heart pacemaker.?? You also had elevated blood pressures while in the hospital??and for this we have started you on??amlodipine as well as??carvedilol. ??It is very important??that you follow-up with your primary care provider.?? Please give them a call first thing??tomorrow morning to discuss??your recent hospital visit.?? Please also keep??your follow-up appointment??your cardiology team. ?? Please??return??to the emergency department??for any??worsening chest pain,??any shortness of breath,??any worsening headaches,??any worsening lightheadedness or dizziness,??any worsening nausea or vomiting,??feeling off balance,??or any??concerns??for infection around??your new pacemaker.?? Signs of infection can include??increased swelling and redness??around the surgery site??as well as fevers. Results Discharge Labs BLOOD BANK Blood Type B Negative ()?? 10/04/2024 12:07 Antibody Screen Negative ()?? 10/04/2024 12:07 ?? BLOOD COUNT & DIFF WBC 9.8 k/mm3 ()?? 10/08/2024 02:47 RBC 4.18 m/mm3 (Low)?? 10/08/2024 02:47 Hgb 11.8 Gm/dL ()?? 10/08/2024 02:47 Hct 37.9 % ()?? 10/08/2024 02:47 MCV 90.7 femtoliters ()?? 10/08/2024 02:47 MCH 28.2 pg ()?? 10/08/2024 02:47 MCHC 31.1 Gm/dL (Low)?? 10/08/2024 02:47 Platelet Count 155 k/mm3 ()?? 10/08/2024 02:47 RDW-SD 44.8 femtoliters ()?? 10/08/2024 02:47 MPV 10.6 femtoliters ()?? 10/08/2024 02:47 Nucleated RBC (Automated) 0.0 #/100 WBC'S ()?? 10/08/2024 02:47 Abs. NRBC 0.0 k/mm3 ()?? 10/08/2024 02:47 Abs. Neut 6.6 k/mm3 ()?? 10/08/2024 02:47 Abs. Lymph 1.8 k/mm3 ()?? 10/08/2024 02:47 Abs. Luce 0.8 k/mm3 ()?? 10/08/2024 02:47 Abs. Eo 0.5 k/mm3 (High)?? 10/08/2024 02:47 Abs. Baso 0.1 k/mm3 ()?? 10/08/2024 02:47 Neut % 66.9 % ()?? 10/08/2024 02:47 Lymph % 18.8 % ()?? 10/08/2024 02:47 Luce % 8.0 % ()?? 10/08/2024 02:47 Eos % 5.3 % ()?? 10/08/2024 02:47 Baso % 0.6 % ()?? 10/08/2024 02:47 Hemoglobin (POC) POC Cartridge 14.3 Gm/dL ()?? 10/04/2024 12:02 Hematocrit (POC) POC Cartridge 42 % ()?? 10/04/2024 12:02 Imm Gran 0.4 % ()?? 10/08/2024 02:47 Abs. Imm Gran 0.0 k/mm3 ()?? 10/08/2024 02:47 ?? BLOOD GAS pH Venous (POC) POC Cartridge 7.37 ()?? 10/04/2024 12:02 pCO2 Venous (POC) POC Cartridge 42.1 mm Hg ()?? 10/04/2024 12:02 pO2 Venous (POC) POC Cartridge 22 mm Hg (Low)?? 10/04/2024 12:02 Est Bicarbonate (POC) POC Cartridge 24.4 mmol/L ()?? 10/04/2024 12:02 % O2 Sat Venous (POC) POC Cartridge 37 ()?? 10/04/2024 12:02 Base Excess (POC) POC Cartridge NEGATIVE 1 ()?? 10/04/2024 12:02 Specimen Type - Blood Gas VENOUS ()?? 10/04/2024 12:02 ? CARDIAC High Sensitivity Troponin (HSTnT) 105 ng/L (Critical)?? 10/08/2024 09:00 ? CHEM GENERAL Sodium 143 mmol/L ()?? 10/08/2024 02:47 Potassium 3.8 mmol/L ()?? 10/08/2024 02:47 Chloride 108 mmol/L (High)?? 10/08/2024 02:47 Bicarbonate Level 22 mmol/L ()?? 10/08/2024 02:47 Anion Gap 13 mmol/L ()?? 10/08/2024 02:47 Sodium (POC) POC Cartridge 141 mmol/L ()?? 10/04/2024 12:02 Potassium (POC) POC Cartridge 5.3 mmol/L (High)?? 10/04/2024 12:02 Glucose Level 79 mg/dL ()?? 10/08/2024 02:47 Glucose (POC) POC Cartridge 80 ()?? 10/04/2024 12:02 Glucose, POC 121 mg/dL (High)?? 10/04/2024 20:53 BUN 23 mg/dL ()?? 10/08/2024 02:47 Creatinine-Blood 1.82 mg/dL (High)?? 10/08/2024 02:47 Estimated GFR Creatinine 29 ML/MIN/1.73 M2 ()?? 10/08/2024 02:47 Calcium 8.6 mg/dL ()?? 10/08/2024 02:47 Ionized Calcium (POC) POC Cartridge 1.13 mmol/L ()?? 10/04/2024 12:02 Phosphorus 4.2 mg/dL ()?? 10/08/2024 02:47 Magnesium 2.2 mg/dL ()?? 10/08/2024 02:47 Protein, Total 6.0 Gm/dL (Low)?? 10/08/2024 02:47 Albumin 3.2 Gm/dL (Low)?? 10/08/2024 02:47 AG Ratio 1.1 ()?? 10/08/2024 02:47 Alkaline Phosphatase 70 units/L ()?? 10/08/2024 02:47 AST (SGOT) 37 units/L (High)?? 10/08/2024 02:47 ALT (SGPT) 17 units/L ()?? 10/08/2024 02:47 Bilirubin, Total 0.4 mg/dL ()?? 10/08/2024 02:47 Bilirubin, Direct 0.2 mg/dL ()?? 10/04/2024 20:22 Bilirubin, Indirect 0.3 mg/dL ()?? 10/04/2024 20:22 Lactate 1.3 mmol/L ()?? 10/05/2024 02:31 ? ENDOCRINE/TUMOR MARKER TSH 2.40 uIU/mL ()?? 10/04/2024 12:20 ? HEME OTHER Hold Blue Top SPECIMEN DISCARDED AFTER 4 HOURS. ()?? 10/04/2024 12:20 ? SEROLOGY INF DISEASE Anaplasma PCR NEGATIVE ()?? 10/04/2024 20:22 Babesia microti PCR Result NEGATIVE ()?? 10/04/2024 20:22 Ehrlichia PCR NEGATIVE ()?? 10/04/2024 20:22 B. Burgdorferi PCR NEGATIVE ()?? 10/04/2024 20:22 ?? URINE OTHER Est Creatinine Clearance 26.30 mL/min ()?? 10/08/2024 03:35 ? VIROLOGY Influenza A PCR NEGATIVE ()?? 10/04/2024 12:04 Influenza B PCR NEGATIVE ()?? 10/04/2024 12:04 RSV PCR NEGATIVE ()?? 10/04/2024 12:04 COVID-19 PCR Specimen Source NASAL ()?? 10/04/2024 12:04 COVID-19 PCR Result NEGATIVE ()?? 10/04/2024 12:04 ? Patient seen and discussed with attending, Dr. Schaefer ?? Sandeep Bonilla DO PGY1??Emergency Medicine * Chong Grider RN: PERFORM, SIGN, VERIFY Event Display: Progress Note Hospital Authored Date: Patient: KATHERINE MONTEZ Age: 74 years Sex: Female : 1950 Associated Diagnoses: None Author: Chong Grider RN Findings Problem Related to Alteration in Cardiac Function (new) : Alteration in Cardiac Function/new 10/08/2024 6:00 EDT Alteration in Cardiac Status Related to Dysrhythmia Goals & Outcomes, Cardiac Status Pt will resume/maintain adequate cardiac output, Pt will resume/maintain adequate hemodynamic status, Pt will resume/maintain adequate respiratory function, Pt will resume/maintain intact neuro function, Pt will maintain adequate GI/ function appropriate for pt, Pt/caregiver will state understanding of diagnosis Cardiac Interventions Implemented Assess/monitor cardiac status, Assess/monitor neuro status, Assess/monitor respiratory status, Assess for tolerance of IV infusions; verify rate & dose, Call/Report variances in ECG to provider, Document & Monitor O2 Sats; Administer O2 as ordered, Ensure adequate caloric intake, If no bowel movement in 3 days activate bowel regime, Monitor & document daily weight, Monitor anticoagulation values, Monitor ECG w/administration of antiarrhythmics (CO 13.420), Obtain 12 Lead ECG and CXR as ordered, Prep pt for treatments & procedures, Teach/encourage deep breath & cough exercises, Teach/encourage use of incentive spirometer, Team conversation regarding appropriate level of care, Turn & reposition Q2 hours per activity restrictions, Useadjunctive therapies per Standards of Practice Goals/Interventions, Cardiac Yes Cardiac, Problem Start 10/04/2024 18:09 Reviewed Plan with, Cardiac Status Patient Patient Progression, Cardiac Status Patient progressing according to plan . Alteration in Comfort : Alteration in Comfort/new 10/08/2024 6:00 EDT Alteration in Comfort Related to Surgery Goals & Outcomes: Comfort Pt will report acceptable level of comfort & pain control, Pt will state importance of adhering to pain strategy regime, Pt will demonstrate necessary skills to manage pain, Non-verbal indicators will indicate comfort/pain control Interventions Implemented: Comfort Assess pain using appropriate pain scale/tools, Assess aggravating factors & prevent them accordingly, Assess alleviating factors & promote them accordingly Goals/Interventions, Comfort Yes Comfort, Problem Start 10/08/2024 6:32 Reviewed plan with, Comfort Patient Patient Progression, Comfort Pt progressing according to plan Comfort, Problem Ongoing Yes . Nursing Data Vital Signs : VITAL SIGNS SECTION 10/08/2024 6:19 EDT Systolic Blood Pressure 169 mm Hg H Diastolic Blood Pressure 78 mm Hg 10/08/2024 6:19 EDT Heart Rate Monitored 69 bpm Respiratory Rate 17 br/min Oxygen Saturation 96 % 10/08/2024 6:19 EDT Blood pressure sites Arm, right Pulse Pressure 91 mm Hg Mode of Delivery (Oxygen) Room air 10/08/2024 6:00 EDT Heart Rate Monitored 60 bpm Respiratory Rate 18 br/min Oxygen Saturation 94 % 10/08/2024 5:00 EDT Heart Rate Monitored 69 bpm Respiratory Rate 21 br/min Oxygen Saturation 94 % 10/08/2024 5:00 EDT Systolic Blood Pressure 179 mm Hg H Diastolic Blood Pressure 86 mm Hg H Blood pressure sites Arm, right Pulse Pressure 93 mm Hg Mode of Delivery (Oxygen) Room air 10/08/2024 4:00 EDT Heart Rate Monitored 77 bpm Respiratory Rate 16 br/min Oxygen Saturation 95 % 10/08/2024 4:00 EDT Temperature 97.9 DegF Temperature Route Oral Systolic Blood Pressure 152 mm Hg H Diastolic Blood Pressure 98 mm Hg H Blood pressure sites Arm, right Pulse Pressure 54 mm Hg Mode of Delivery (Oxygen) Room air 10/08/2024 3:15 EDT Systolic Blood Pressure 168 mm Hg H Diastolic Blood Pressure 70 mm Hg 10/08/2024 3:15 EDT Heart Rate Monitored 62 bpm Respiratory Rate 18 br/min Oxygen Saturation 93 % L 10/08/2024 3:15 EDT Pulse Pressure 98 mm Hg 10/08/2024 3:00 EDT Heart Rate Monitored 65 bpm Respiratory Rate 21 br/min Oxygen Saturation 93 % L 10/08/2024 3:00 EDT Blood pressure sites Arm, right Mode of Delivery (Oxygen) Room air 10/08/2024 2:00 EDT Heart Rate Monitored 83 bpm Respiratory Rate 18 br/min Oxygen Saturation 95 % 10/08/2024 2:00 EDT Systolic Blood Pressure 170 mm Hg H Diastolic Blood Pressure 87 mm Hg H Blood pressure sites Arm, right Pulse Pressure 83 mm Hg Mode of Delivery (Oxygen) Room air 10/08/2024 1:13 EDT Respiratory Rate 14 br/min L 10/08/2024 1:00 EDT Heart Rate Monitored 75 bpm Respiratory Rate 24 br/min Oxygen Saturation 94 % 10/08/2024 1:00 EDT Systolic Blood Pressure 155 mm Hg H Diastolic Blood Pressure 73 mm Hg Blood pressure sites Arm, right Pulse Pressure 82 mm Hg Mode of Delivery (Oxygen) Room air 10/08/2024 0:00 EDT Heart Rate Monitored 73 bpm Respiratory Rate 17 br/min Oxygen Saturation 94 % 10/08/2024 0:00 EDT Temperature 98.0 DegF Temperature Route Oral Systolic Blood Pressure 153 mm Hg H Diastolic Blood Pressure 93 mm Hg H Blood pressure sites Arm, right Pulse Pressure 60 mm Hg Mode of Delivery (Oxygen) Room air . Evaluation p; plan of care I: Interevention per plan of care E: Patient alert and oriented x 4. able to make needs known. DAUGHERTY. 1 assist from oob to bathroom. L arm sling. pacemaker site dressing CDI. voiding cyu in bathroom. brown liquid oiutput from ileostomy. remains hypertensive. aware. downgraded to tele. R ij cordis removed. occlusive dressing applied and followed protocol. no bleeding or hematoma noted. patient tolerated well. monitoring continues. . Consult note * Phil Nieves: MODIFY, PERFORM, MODIFY Event Display: Consultation Note Authored Date: Patient: ??KATHERINE MONTEZ ? Age:??74 Years?Sex:??Female?:??1950?? Indication for Consult [facility] -Electrophysiology Consultation Note ?? Consult Requesting Physician: Dr Huizar Consulting Retail Sales Lead: DR Art Primary Retail Sales Lead: Consult Reason:??CHB History of Present Illness/Interval History This is a 74-year-old female with past medical history of hypertension, hyperlipidemia, and obesitywho initially presented to the emergency department complaining of headache.?? Upon arrival she wasfound hypertensive with systolic blood pressure over 200.?? During triage, she was found bradycardic and EKG was concerning for high degree AV block with a heart rate in the low 30s.?? Patient deniesany active symptoms such as lightheadedness, dizziness, shortness of breath or chest pain.?? She reported having a syncopal episode about a month ago and went to the bathroom.?? Prior to passing out,she experienced lightheadedness and weakness.?? Given concern for high degree AV block, EP was consulted for further evaluation pacemaker therapy.?? During my physical examination, patient was layingdown in bed.?? Denies any active symptoms.?? Telemetry, rhythm is consistent with high degree AV block with a narrow QRS.?? Patient denies seeing any cardiology in the past.?? There is no records of recent echocardiograms or EKGs to compare. Review of Systems 12 point review of symptoms as noted in the??HPI and reviewed in detail with the patient; pertinentpositives noted otherwise??negative. Physical Exam Vitals & Measurements T:??98?F?? HR:??27??(Peripheral)?? RR:??16?? BP:??164/73?? SpO2:??98%?? HT:??168??cm?? WT:??87??kg?? Weight lb/oz: 191 lb 13 oz Gen: well appearing, NAD HEENT: mmm, no oral exudates Neck: Normal JVD CV: rrr, no m/r/g Abd: soft, NT, ND Lungs/chest: normal breath sounds, no crackles or wheezes Extremities: no pitting edema, 2+ pulses Neuro: moving all 4 extremities spontaneously Skin: no rash Assessment/Plan 74-year-old female with past medical history of hypertension, hyperlipidemia, and obesity who initially presented to the emergency department complaining of headache.?? Upon arrival she was found hypertensive with systolic blood pressure over 200.?? During triage, she was found bradycardic and EKG was concerning for high degree AV block with a heart rate in the low 30s.?? Patient denies any active symptoms such as lightheadedness, dizziness, shortness of breath or chest pain.?? She reported having a syncopal episode about a month ago and went to the bathroom.?? Prior to passing out, she experienced lightheadedness and weakness ?? Plan: 1. CHB -Recent EKGs are consistent with??complete heart block??with a stable??escape rhythm??around 30s.??Given degree of conduction system disease, this patient will benefit from??pacemaker implant.?? Patient agreed to plan. Risk, benefits, and alternatives to pacemaker/ICD implantation??were discussed including??less than 3% of bleeding, infection, thromboembolism near the pacemaker site, pneumothorax, and movements of the device or leads with less than 1% risk of stroke, heart attack or .?Patient verbalized agreement and understanding. Questions encouraged and answered. - keep npo after midnight on Monday ?? Thank you for allowing us to participate in the care of this patient. Patient seen and discussed with Dr. Art. ?? Phil Eli PA-C Cardiac Electrophysiology ?? I personally spent a total of??80 minutes, including both [id number]-[id number]-ljuf and lsb-medf-nm-face time onthe date of the encounter, addressing the above diagnoses, and answering all questions.? Available by [employer].?? Please note that this document was generated with the assistance of??MISTY?voice recognition technology, and may contain vocabulary/syntax errors.?Please do not hesitate to contact me in case of any questions or concerns? Allergies NK[facility] Home Medications Atorvastatin: 10 mg = 1 tablet, By Mouth, Daily at bedtime Cyclobenzaprine: 10 mg = 1 tablet, By Mouth, Daily at bedtime Gabapentin: TAKE 1 CAPSULE(S) BY MOUTH THREE TIMES A DAY AND TAKE 2 CAPSULE(S) BY MOUTH AT BEDTIME Meclizine: 12.5 mg = 1 tablet, By Mouth, 3 times a day, PRN (as needed for dizziness) Hospital Medications Medications (5) Active SCHEDULED: (0) CONTINUOUS: (0) PRN: (5) Acetaminophen 325 mg Tablet (Acetaminophen Tablet) ??650 mg, By Mouth, Every 4 hours Al hydroxide/Mg hydroxide/simethicone 200 mg-200 mg-20 mg/5 mL Susp UD (Maalox Plus Liquid) ??30 mL, By Mouth, Every 2 hours Docusate Sodium 100 mg Capsule (Docusate Sodium Capsule) ??100 mg 1 capsule, By Mouth, 2 times a day Magnesium Hydroxide 8% Susp UD (Milk of Magnesia Liquid) ??30 mL, By Mouth, 2 times a day NaCl 0.9% Flush 3ml (NaCL 0.9% Flush) ??3 mL, IV Push, Every 8 hours Lab Results Cardiology Labs Blood Count & Diff?? General Chemistry?? Cardiac?? WBC: 9.2 k/mm3 (10/04/24) Sodium: 145 mmol/L (10/04/24) Bilirubin, Total: 0.5 mg/dL (10/04/24) RBC: 4.55 m/mm3 (10/04/24) Potassium: 4 mmol/L (10/04/24) ?? Hgb: 12.8 Gm/dL (10/04/24) Chloride:??110 mmol/L??High (10/04/24) ?? Hct: 41.4 % (10/04/24) Bicarbonate Level: 22 mmol/L (10/04/24) ?? MCV: 91 femtoliters (10/04/24) Anion Gap: 13 mmol/L (10/04/24) ?? Platelet Count: 173 k/mm3 (10/04/24) Glucose Level: 82 mg/dL (10/04/24) ? BUN: 22 mg/dL (10/04/24) ? Creatinine-Blood:??1.99 mg/dL??High (10/04/24) ? Estimated GFR Creatinine: 26 ML/MIN/1.73 M2 (10/04/24) ? Calcium: 9 mg/dL (10/04/24) ? Magnesium: 2.1 mg/dL (10/04/24) ? Protein, Total: 6.8 Gm/dL (10/04/24) ? Albumin: 3.8 Gm/dL (10/04/24) ? Alkaline Phosphatase: 82 units/L (10/04/24) ? AST (SGOT): 25 units/L (10/04/24) ? ALT (SGPT): 13 units/L (10/04/24) ?? Diagnostic Impression Stress Test No qualifying data available. Problem List/Past Medical History Ongoing No qualifying data Procedure/Surgical History No qualifying data available. Family History No family history recorded. Patient Care team information Care Team Personnel Name: Wali Harris MD Position: [facility] Outreach Member Role: PCP Address: [address] [place] [address] [place] [address]- Telecom: Care Team Related Persons Name: LISA MONTEZ Insurance Providers Guarantor name: THERESE Health Plan Information #: 1 Payer: [facility] [employer] H[employer] Member Number: [id number] Policy Number: THERESE Group Number: [id number] Health Plan Information #: 2 Payer: [facility] [employer] H[employer] Member Number: [id number] Policy Number: NA Group Number: NA
--- NOTE | 2024-10-12 09:41 | AM.OFFWIN_ITS ---
Intake Vital Signs 10/12/24 09:42 Height 5 ft 4 in Weight 187 lb BMI 32.1 BP 120/76 Blood Pressure Location Lt brachial Position Sitting Pulse 59 Pulse Source Pulse Oximeter Temp 98.1 F Temp Source Oral Pulse Oximetry (%) 98 Oxygen Delivery Method Room Air Intake Visit Reasons: EP-Rt ear ache, ROSE Patient Tobacco Use Status: Current everyday Tobacco user Allergies No Known Allergies Allergy (Unknown, Verified 10/12/24 10:21) Medication List - Last Reconciled 10/12/24 by Cassie Espinoza, CENTRIFUGE OPERATOR- amlodipine 10 mg PO DAILY atorvastatin 10 mg PO DAILY carvedilol 3.125 mg PO BID gabapentin mg PO Do you need a note to return to daycare/school/sports/work: No HPI HPI Comments History of Present Illness Details PCP Dr Lloyd History - The patient is a 74-year-old female wi th CKD3, newly placed pacemaker presenting with headache and right ear pain. - Symptoms began > 3 week ago, with init ial gum discomfort spreading to the ear and nose, developing into nasal pressure and headache - Underwent previous hospitalization wit h cardiology oversight but ruled out cardiac causes. - Reports feeling feverish without actua l fever. - Self-management included Advil and dec ongestants, providing slight improvement. - Cold remedies offered minimal relief f or symptoms. - The patient has a history of daily tob acco consumption. Denies fever, chills, visual changes, chest pain, sob, loss of function. Physical Exam General: Awake, alert. No apparent distress Eyes: Sclera and conjunctiva clear bilaterally Nose: Nares patent, turbinates pale and edematous worse on R, + sinus pain w palp over R max. and frontal sinus Ears: Tympanic membranes intact + congestion bilat, worse on R Throat: Moist mucosa membrane, pharynx within normal limits Cardiovascular: RRR, pacer L chest Respiratory: Clear to auscultation bilaterally Discussion Notes We reviewed the plan to initiate antibiotic therapy with Augmentin, explaining that it is aimed at addressing the sinus infection suspected to be causing her symptoms. I informed her of the importance of completing the full course of the antibiotic to ensure effectiveness. Potential gastrointestinal side effects such as stomach upset could be mitigated by taking the medication with food. I advised using saline or Flonase but avoiding other nasal sprays. We agreed she would follow up with her primary care physician, Dr. Lloyd, in a few days to evaluate her response to treatment and adjust if necessary. I encouraged her to report any significant adverse reactions or if symptoms worsen. She is also managing her blood pressure and was reassured about compatibility with her current medications. Assessment and Plan 1. Acute Sinusitis: The patient displays classic symptoms of acute sinusitis. We have opted to commence Augmentin therapy at reduced dose d/t CKD3 Last gfr in the 30's 3. Nicotine Dependence: Daily tobacco us e was acknowledged; smoking cessation encouraged Patient Instructions - Begin taking Augmentin 500 mg twice da rody for seven days. - Take the medication with food to avoid stomach upset. - Monitor symptoms; they should begin to improve in 48 hours but complete the full medication course. - Use saline nasal spray or Flonase if d esired, but avoid other nasal sprays. - Follow up with Dr. Lloyd on Monday for fur ther evaluation and management. - Seek immediate care if symptoms worsen or adverse reactions occur. - Continue using otc analgesia for pain as necessary. Consent The patient was verbally informed about the prescribed antibiotic Augmentin, including the rationale, potential benefits, and side effects. Explanation was given that it is critical to consume with food to minimize gastrointestinal discomfort. The patient acknowledged understanding of the instructions and the importance of finishing the full course of treatment. Consent was implied through active participation in the treatment plan and agreement to follow up with Dr. Lloyd. Patient was informed and verbally consented to the use of an ambient scribe for clinic note documentation during this visit. [facility] Medical History Cervical spinal stenosis Thyroid nodule Parastomal hernia Complication of external stoma of gastrointestinal tract Morbid obesity Hypertension Surgical History S/P ileostomy S/P colostomy Family History Father Metastatic cancer Colon cancer Mother CHF (congestive heart failure) Social History Housing: House Alcohol intake: current Alcohol intake frequency: holidays/special occasions only Patient Tobacco Use Status: Current everyday Tobacco user Cigarettes Per Day: 4 service: No Current occupational status: retired and disabled Cognitive needs: No Hearing needs: No Vision needs: Yes Physical Exam Vital Signs: Last Vital Signs Temp 98.1 F 10/12/24 09:42 Pulse 59 10/12/24 09:42 BP 120/76 10/12/24 09:42 Pulse Ox 98 10/12/24 09:42 Oxygen Delivery Method Room Air 10/12/24 09:42 BMI result Body Mass Index 32.1 Assessment & Plan Assessment & Plan (1) Acute bacterial sinusitis: Code(s): J01.90 - Acute sinusitis, unspecified; B96.89 - Other specified bacterial agents as the cause of diseases classified elsewhere (2) CKD (chronic kidney disease) stage 3, GFR 30-59 ml/min: Code(s): N18.30 - Chronic kidney disease, stage 3 unspecified Qualifiers: Chronic kidney disease stage 3 subtype: stage 3b (GFR 30-44) Qualified Code(s): N18.32 - Chronic kidney disease, stage 3b (3) S/P placement of cardiac pacemaker: Onset Date: ~09/2024 Code(s): Z95.0 - Presence of cardiac pacemaker (4) Current smoker: Code(s): F17.200 - Nicotine dependence, unspecified, uncomplicated Plan . Medications: New amoxicillin-pot clavulanate 500-125 mg 1 tab PO BID 7 days 14 tabs 0RF Coding Level of Care Code Est Pt Level 4 (89814) Diagnoses Acute bacterial sinusitis J01.90; B96.89 Stage 3b chronic kidney disease N18.32 Chronic kidney disease stage 3 subtype: stage 3b (GFR 30-44) S/P placement of cardiac pacemaker Z95.0 Current smoker F17.200
[2024-10-12 09:42] VITALS: BP 120/76; PULSE 59; TEMP 36.7; O2SAT 98; BMI 32.1
== END 2024-10-12 10:57 | disposition home or self-care (01) ==
LOC: HO.HMCWIC 09:29
PROVIDERS: PCP Internal Medicine; Visit Provider Nurse Practitioner Family
DX: J01.90 Acute sinusitis, unspecified (principal); B96.89 Other specified bacterial agents as the cause of diseases classified elsewhere; N18.32 Chronic kidney disease, stage 3b; Z95.0 Presence of cardiac pacemaker; F17.200 Nicotine dependence, unspecified, uncomplicated

== ENCOUNTER → 2024-10-12 09:29 | Outpatient (BNVA) | payer MEDICARE, SELFPAY | PROVIDERS: PCP Internal Medicine; Visit Provider Nurse Practitioner Family | DX: J01.90 Acute sinusitis, unspecified (principal); B96.89 Other specified bacterial agents as the cause of diseases classified elsewhere; N18.32 Chronic kidney disease, stage 3b; Z95.0 Presence of cardiac pacemaker; F17.200 Nicotine dependence, unspecified, uncomplicated; Z71.6 Tobacco abuse counseling | CPT/HCPCS: 99212 ==

== ENCOUNTER 2024-10-14 15:40 | Outpatient (AMB) | payer MEDICARE, SELFPAY ==
--- NOTE | 2024-10-14 16:02 | A.OFFPC_ITS ---
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 Required: No Accompanied by: spouse Allergies No Known Allergies Allergy (Unknown, Verified 10/15/24 09:03) Medication List - Last Reconciled 10/15/24 by Javad Ojeda MD amlodipine 10 mg PO DAILY amoxicillin-pot clavulanate 500-125 mg 1 tab PO BID 7 days atorvastatin 10 mg PO DAILY carvedilol 3.125 mg PO BID gabapentin mg PO meclizine mg PO Tobacco use date assessed: 10/14/24 Fall risk assessment: 1 Fall in past year Last assessed Fall Risk: 10/14/24 Dental Screening Dental Screen Date: 10/14/24 Did you have a dental visit in the last 12 months?: No Did you have a dental problem in the last 6 months where you did not have access to dental care?: No HPI Discharge HPI Details 74 yr old female presents to the office for a follow up visit. Since last ov, pt was seen at the walk in for sinus pain. Routine vital check revealed a pulse of 29. EKG showed a complete heart block and was sent to [facility]. Patient was discharged from [facility] with a pacemaker. Feeling better, but the sinus pain symptoms continue. As a result of the above procedure, she did not get the MRI of the c spine that was scheduled. Now willing to get it. Continues to have pain in the right side of the face and right upper ext. [facility] Medical History (Updated 10/15/24 @ 09:08 by Javad Ojeda MD) Complete heart block Cervical spinal stenosis Thyroid nodule Parastomal hernia Complication of external stoma of gastrointestinal tract Morbid obesity Hypertension Surgical History S/P ileostomy S/P colostomy Family History Father Metastatic cancer Colon cancer Mother CHF (congestive heart failure) Social History Housing: House Alcohol intake: current Alcohol intake frequency: holidays/special occasions only Patient Tobacco Use Status: Current everyday Tobacco user Cigarettes Per Day: 4 service: No Current occupational status: retired and disabled Cognitive needs: No Hearing needs: No Vision needs: Yes (reading glasses) Questionnaire PHQ-9 Over the last 2 weeks, how often have you been bothered by any of the following problems? 1. Little interest or pleasure in doing things: not at all 2. Feeling down, depressed, or hopeless: not at all 3. Trouble falling or staying asleep, or sleeping too much: not at all 4. Feeling tired or having little energy: not at all 5. Poor appetite or overeating: not at all 6. Feeling bad about yourself - or that you are a failure or have let yourself or your family down: not at all 7. Trouble concentrating on things, such as reading the newspaper or watching television: not at all 8. Moving or speaking so slowly that other people could have noticed. Or the opposite - being so fidgety or restless that you have been moving around a lot more than usual: not at all 9. Thoughts that you would be better off or of hurting yourself in some way: not at all Total score: 0 Depression Screening Interpretation: Negative Depression Screening Done: Yes Source: Developed by Drs. Larry Molina, Geeta Lozano, Rajiv Santiago and colleagues, with an educational patito from [employer]. Thrive Questionnaire Date Thrive assessed: 10/14/24 I am a: Patient Within the past 12 months, did the food you bought not last and you didn't have the money to get more?: Never true Within the past 12 months, did you worry whether your food would run out before you got money to buy more?: Never true Do you have trouble paying for medicines?: No Do you have trouble getting transportation to medical appointments?: No Do you have trouble paying your heating and electricity bill?: No Do you have trouble taking care of your child, family member or friend?: No Do you have trouble with day-to-day activities such as bathing, preparing meals, shopping, managing finances, etc.?: No Are you currently unemployed and looking for a job?: No Are you interested in more education?: No THRIVE Score: 0 AUDIT C Alcohol Use Questionnaire (AUDIT-C) 1. How often do you have a drink containing alcohol?: Monthly or less 2. How many drinks containing alcohol do you have on a typical day when you are drinking?: 1 or 2 3. How often do you have six or more drinks on one occasion?: Less than monthly Total Score: 2 KAROLYN-7 AMB Questionnaire KAROLYN-7 Date KAROLYN - 7 assessed: 10/14/24 Feeling nervous, anxious, or on edge: 0 = Not at all Not being able to stop or control worryin = Not at all Worrying too much about different things: 0 = Not at all Trouble relaxin = Not at all Being so restless that it is hard to sit still: 0 = Not at all Becoming easily annoyed or irritable: 0 = Not at all Feeling afraid as if something awful might happen: 0 = Not at all Total KAROLYN-7 score (0-4 normal; 5-9 mild; 10-14 moderate; 15-21 severe): 0 Source: Developed by Drs. Larry Molina, Geeta Lozano, Rajiv Santiago and colleagues, with an educational patito from [employer]. Physical exam (Primary Care) Vital Signs: Last Vital Signs Temp 97.4 F 10/14/24 16:03 Pulse 76 10/14/24 16:03 BP 140/80 H 10/14/24 16:03 Pulse Ox 97 10/14/24 16:03 Oxygen Delivery Method Room Air 10/14/24 16:03 Care Plan Goal for BP management: BP in range. BMI result Body Mass Index 31.6 BMI Assessment/Plan discussion: High Tobacco/Smoking Status: Tobacco use Status Tobacco use date assessed 10/14/24 10/14/24 16:08 Patient Tobacco Use Status Current everyday Tobacco 10/14/24 16:08 Are you ready to quit: No Tobacco cessation counseling provided: No PHQ-9: PHQ-9 Score PHQ-9: Total score 0 10/14/24 16:08 Depression Screening Interpretation: Negative Thrive Assessment: Date of Thrive Assessment Date Thrive assessed 10/14/24 10/14/24 16:08 Const General: cooperative and healthy appearing Nutritional Appearance: well nourished Orientation/consciousness: patient oriented x3 Limitations: no limitations HENMT Head: Yes normal to inspection Eyes General: appearance normal, both eyes and all related structures Neck Neck: Yes normal visual inspection Chest Chest palpation & inspection: normal palpation of entire chest wall Resp Effort & Inspection: normal respiratory effort Neuro General: patient oriented x3 Coding Level of Care Code Est Pt Level 4 (03959) Complex EM visit Add On G2211 Diagnoses Complete heart block I44.2 Cervical spinal stenosis M48.02 Assessment & Plan Assessment & Plan (1) Complete heart block: Code(s): I44.2 - Atrioventricular block, complete Category: Medical Plan: Patient has a pacemaker, she is scheduled for a follow up with cardiology soon. (2) Cervical spinal stenosis: Code(s): M48.02 - Spinal stenosis, cervical region Category: Medical Plan: MRI of the neck has to be done. Patient's will call radiology to reschedule the appointment.
[2024-10-14 16:03] VITALS: BP 140/80; PULSE 76; TEMP 36.3; O2SAT 97; BMI 31.6
== END 2024-10-15 09:41 | disposition home or self-care (01) ==
LOC: HO.HMCHD 15:40
PROVIDERS: PCP Internal Medicine; Visit Provider Internal Medicine
DX: I44.2 Atrioventricular block, complete (principal); M48.02 Spinal stenosis, cervical region

== ENCOUNTER → 2024-10-14 15:40 | Outpatient (BNVA) | payer MEDICARE, SELFPAY | PROVIDERS: PCP Internal Medicine; Visit Provider Internal Medicine | DX: I44.2 Atrioventricular block, complete (principal); M48.02 Spinal stenosis, cervical region; Z95.0 Presence of cardiac pacemaker | CPT/HCPCS: 96127; 99212 ==

== ENCOUNTER → 2024-12-12 11:02 | Outpatient (BNV) | payer MEDICARE, SELFPAY | PROVIDERS: PCP Internal Medicine; Visit Provider Radiology Diagnostic Radiology | DX: M48.02 Spinal stenosis, cervical region (principal) | CPT/HCPCS: 72141 ==

== ENCOUNTER 2024-12-12 11:03 | Outpatient (REF) | payer MEDICARE, SELFPAY ==
--- NOTE | ~2024-12-12 | MR_ITS ---
CLINICAL HISTORY: M48.02 - Spinal stenosis, cervical region MR of the cervical spine without contrast. COMPARISON: None FINDINGS: Normal alignment of the anterior and posterior elements without evidence of subluxation. Vertebral heights are maintained. Modic type 1 degenerative endplate changes at C3-4 and C4-5 posteriorly. There is edema within the facet joints at C4 and C5 on the left. Suspect nondisplaced pars defect at C5 on the left. There is mild edema within the posterior paraspinal soft tissues at C4 and C5. Visualized posterior fossa is normal. No abnormal signal within the normal caliber cervical spinal cord. No syringomyelia or cervical epidural fluid collection. C2-C3: No significant neuroforaminal narrowing or spinal canal stenosis. C3-C4: Loss of disc space height. Posterior disc osteophyte complex indents the anterior subarachnoid space and abuts does not deform the cord. The posterior subarachnoid space is effaced. Severe spinal canal stenosis at this level. Uncovertebral joint hypertrophy. Severe bilateral neural foraminal narrowing. C4-C5: Loss of disc space height. Posterior disc osteophyte complex indents the anterior subarachnoid space and abuts and deforms the cord. The posterior subarachnoid space is effaced. Severe spinal canal stenosis at this level. Uncovertebral joint hypertrophy. Severe bilateral neural foraminal narrowing. C5-C6: Loss of disc space height. Posterior disc osteophyte complex indents the anterior subarachnoid space and abuts and mildly deforms the cord. The posterior subarachnoid space is effaced. There is severe spinal canal stenosis at this level. Facet joint arthrosis. Uncovertebral joint hypertrophy. Severe left and moderate right neural foraminal narrowing. C6-C7: Posterior disc osteophyte complex indents the anterior subarachnoid space and abuts but does not deform the cord. The posterior subarachnoid space is preserved. Mild spinal canal stenosis at this level. Uncovertebral joint hypertrophy. [id number] bilateral neural foraminal narrowing. Visualized paraspinal soft tissues are unremarkable. IMPRESSION: 1. Edema within the facet joints at C4 and C5 on the left with suspected nondisplaced pars defect at C5 on the left and edema within the posterior paraspinal soft tissues at C4 and C5. This may represent acute or subacute injury. Recommend correlation with clinical history and prior imaging if available. 2. Severe spinal canal stenosis at C3-4, C4-5 and C5-6. Mild spinal canal stenosis at C6-7. 3. Advanced multilevel cervical spondylosis with multilevel [id number] neural foraminal narrowing. This document has been electronically signed by: Phil Bradshaw MD on 12/12/2024 15:13:31
--- OUTSIDE RECORDS SUMMARY | 2024-12-12 13:08 | XMS_ITS | Patient Health Record ---
Author Organization [facility] Address [address] [place] [address] Care Team Providers Care Funeral Pre Arrangement Counselor Name Role Phone Wali Harris MD Primary Care Provider Sunday Oleary Unavailable [phone] Allergies Allergen (clinical drug ingredient) Drug/Non Drug Allergy documented on EMR Reaction Allergy Type Onset Date Status aspirin Aspirin upset stomache Drug Allergy Ac tive Reason For Referral No Information Medications Medication SIG (Take, Route, Frequency, Duration) Notes Start Date End Date Status Miconazole Nitrate 2 % 1 to affected are a Externally Twice a day Active Keflex 500 MG 1 capsule Orally babatunde ry 12 hrs for 05 days 2014 Not-Taking Doxycycline Hyclate 100 MG 1 tablet Oral ly Once a day Active Imodium A-D 2 MG 1 tablet Orally 8 time(s) a day Active Metoprolol Succinate Active Multivitamins Orally Active Cimetidine 300 MG 1 tablet with meals and at bedtime Orally Four times a day Not-Taking vitamin D Not-Taking Problems Problem Type SNOMED Code ICD Code Onset Dates Problem Status W/U Status Risk Notes Problem Neuralgia - Neuritis (729.2) Active confirmed Problem Paronychia (87012902) Paronychia (681.11) Active confirmed Problem Abscess /Cellulitis (682.7) Active confirmed Problem Ingrowing nail (410270035) Ingrowing Nail (703.0) Active confirmed Plan Of Treatment Pending Test Test Name Order Date 32960- Debride <25 sq cm 06/26/2014 45571 I&D ABSCESS- SIMPLE,SINGLE 014 [id number] OF HEMATOMA/FLUID 015 Insurance Providers Payer Name Payer Address Payer Phone Subscriber Number Group Number Insured Name Patient Relationship to Insured Coverage Start Date Coverage End Date [facility] [address] [place] [address] [phone] [id number] Pancho Patterson Spouse - patient is the spouse of the insured Medical (General) History Medical History History ICD Code Arthritis Broken bones Diverticulosis Psoriasis/eczema Reflux Sciatica chronic sinusitis Measles Mumps Chicken pox Joint implants/screws Transfusions Surgical History Surgery Date(Month/Year) gallbladder;stones 11/1981 Diverticulitisis;colostomy/reversed 06/10 004 Hernia repair 02/2010 ankle surgery ileostomy
== END 2024-12-12 11:04 | disposition home or self-care (01) ==
LOC: HO.MRI 11:03
PROVIDERS: PCP Internal Medicine; Visit Provider Internal Medicine
DX: M48.02 Spinal stenosis, cervical region (principal)
CPT/HCPCS: 72141

== ENCOUNTER 2024-12-23 09:30 | Outpatient (AMB) | payer MEDICARE, SELFPAY ==
[2024-12-23 09:34] VITALS: BMI 31.6
--- NOTE | 2024-12-23 09:34 | A.SPINEOV_ITS ---
Vital Signs 12/23/24 09:34 Height 5 ft 4 in Weight 184 lb BMI 31.6 Intake Visit Reasons: spinal stenosis Intake Note: Ms. Patterson is here today c/o neck pain. Cvor Nurse Required: No Allergies No Known Allergies Allergy (Unknown, Verified 12/23/24 09:37) Physical Exam Vital Signs: BMI result Body Mass Index 31.6 Assessment & Plan Assessment & Plan (1) Cervical spinal stenosis: Code(s): M48.02 - Spinal stenosis, cervical region Category: Medical Plan Dear Dr Ojeda, Thank you for referring Mrs Patterson to our office today. She is a very nice 74-year-old female who presents today for evaluation of her cervical spine. She had a host of symptoms earlier this year which included pain on the right side of her face as well as a feeling of numbness and electrical current that would radiate up to her head. She was also associated with nausea. She would have some neck pain occasionally as well. She ultimately was found to have complete heart block and underwent a pacemaker and the symptoms have gone away. Right now she tells me she has no symptoms at all, just a little discomfort in her neck. Denies any tingling or numbness going down her arms, loss of motor function, hand function or fine motor movements. She is here today to follow up on her cervical MRI showing degenerative disc disease and stenosis. PMH: Complete heart block with pacemaker, she had complications of an abdominal hernia repair that resulted in an ICU stay and multiple reoperations which left her with an ileostomy. She has lifelong smoker with COPD but does not require inhalers. She has history of cholecystectomy, ORIF of broken ankle. Denies any history of coronary artery disease, strokes, liver disease or kidney disease. No history of blood clots or bleeding disorders. Social hx: Smokes about half a pack a day, does not drink any alcohol or smoke marijuana Medications: Reports only 2 medications including carvedilol and amlodipine Allergies: None Physical exam: Awake alert oriented no acute distress, able to stand walk down the hallway on her own independently, normal gait with turns, had to do some tandem gait walking, just slightly unsteady, but not falling over or bumping into garcia. Romberg is negative. Strength in the upper and lower extremities is normal with normal reflexes, no clonus or Ovalle's sign. Imaging review: Cervical MRI done shows multilevel degenerative disc disease from C3-[address] to C6-7. There are varying degrees of stenosis but nothing C3-4 seems to be the worst and I would rate that is moderate to severe. There is moderate stenosis at C4-5 and maybe C5-6. There is no cord signal change seen. The radiologist is reporting edema in the facet on the left at C4- 5, could represent a subacute injury to the facet joints. Could also represent degenerative changes as we do see that with facet edema as well. Impression: 74-year-old female presents for follow up on her cervical MRI. She had a history of a complete heart block which was elusive to diagnosis for awhile and she was having multiple syncopal events. Additionally, she was having an altered sensation radiating up to her head which she describes as an electrical type sensation. All this went away once the pacemaker was placed and her heart rhythm stabilize. She currently only has some mild neck discomfort. What we are seeing on her MRI is diffuse arthritis. I think the radiologist is over reading the degree of stenosis when he reports that it is severe. The worst area is C3-4 where is moderate to severe. There is no cord signal change to suggest active myelopathy. We can see findings like this in patients who are asymptomatic. Currently she has no myelopathic complaints and her exam is not demonstrating any myelopathy. Typically this kind of situation Dr. Rao will either allow the patient to follow-up in 6 months to monitor for sxs, or educate them on the clinical symptoms and they can follow up if they develop any. I offered her both options and she would like to just follow-up if she develops any myelopathic symptoms. With regard to the edema in the facet. This could be sequelae of 1 of her syncopal events, or could just be degenerative in nature. Either way, there is no indication for surgery to treat it as it should heal on its own if it is sequelae of a fracture, and if it is degenerative, she is not experiencing tremendous amounts of pain from it. I would be happy to see her again down the road if something changes. Thank you for allowing us to care for your patient. The total time spent with this visit with this patient was 45 minutes reviewing history, physical exam, cervical imaging review, and implementation of treatment plan or further diagnostic testing Dario Rao MD,PhD [facility] Coding Level of Care Code New Pt Level 4 (77001) Diagnoses Cervical spinal stenosis M48.02
--- OUTSIDE RECORDS SUMMARY | 2024-12-23 10:18 | XMS_ITS | Patient Health Record ---
Author Organization [facility] Address [address] [place] [address] Care Team Providers Care Parts Washer Name Role Phone Wali Harris MD Primary Care Provider Sunday Oleary Unavailable [phone] Allergies Allergen (clinical drug ingredient) Drug/Non Drug [...] - Neuritis (729.2) Active confirmed Problem Paronychia (13732299) Paronychia (681.11) Active confirmed Problem Abscess /Cellulitis (682.7) Active confirmed Problem Ingrowing nail (894320895) Ingrowing Nail (703.0) Active confirmed Plan Of Treatment Pending Test Test Name Order Date 63670- Debride <25 sq cm 06/26/2014 67074 I&D ABSCESS- SIMPLE,SINGLE 014 [id number] OF HEMATOMA/FLUID 015 Insurance Providers Payer Name Payer Address Payer Phone Subscriber Number Group Number Insured Name Patient Relationship to Insured Coverage Start Date Coverage End Date [facility] [address] [place] [address] [id number] Pancho Patterson Spouse - patient is the spouse of the insured Medical (General) History Medical History History ICD Code Arthritis Broken bones Diverticulosis Psoriasis/eczema Reflux Sciatica chronic sinusitis Measles Mumps Chicken pox Joint implants/screws Transfusions Surgical History Surgery Date(Month/Year) gallbladder;stones 11/1981 Diverticulitisis;colostomy/reversed 06/10 004 Hernia repair 02/2010 ankle surgery ileostomy
== END 2024-12-23 10:55 | disposition home or self-care (01) ==
LOC: HO.HNS 09:31
PROVIDERS: PCP Internal Medicine; Referring Provider Internal Medicine; Visit Provider Physician Assistant
DX: M48.02 Spinal stenosis, cervical region (principal)
CPT/HCPCS: 99204

== ENCOUNTER → 2024-12-23 09:30 | Outpatient (BNVA) | payer MEDICARE, SELFPAY | PROVIDERS: PCP Internal Medicine; Referring Provider Internal Medicine; Visit Provider Physician Assistant | DX: Z00.00 Encounter for general adult medical examination without abnormal findings (principal); E66.01 Morbid (severe) obesity due to excess calories; R19.8 Other specified symptoms and signs involving the digestive system and abdomen; I44.2 Atrioventricular block, complete; I10 Essential (primary) hypertension; E78.5 Hyperlipidemia, unspecified; B37.9 Candidiasis, unspecified; J44.9 Chronic obstructive pulmonary disease, unspecified; G62.9 Polyneuropathy, unspecified; Z79.899 Other long term (current) drug therapy; Z95.0 Presence of cardiac pacemaker; Z93.2 Ileostomy status; M48.02 Spinal stenosis, cervical region | CPT/HCPCS: 99202; 99387 ==

== ENCOUNTER 2024-12-23 10:42 | Outpatient (AMB) | payer MEDICARE, SELFPAY ==
--- NOTE | 2024-12-23 10:54 | A.OFFPC_ITS ---
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: No Accompanied by: Self / Same As Patient Allergies No Known Allergies Allergy (Unknown, Verified 12/23/24 09:37) Medication List - Last Reconciled 12/23/24 by MILAGROS York amlodipine 10 mg PO DAILY atorvastatin 10 mg PO DAILY carvedilol 3.125 mg PO BID gabapentin 100 mg PO TID ostomy supplies (Convatec Night Drainage Tubing misc) ConvaTec Pouches with 4 boxes ostomy supplies (Convatec Night Drainage Tubing misc) ConvaTec Stomahesive Paste with 2 refills ostomy supplies (Convatec Night Drainage Tubing misc) Safe & Simple Ring Barrier, 1 box Tobacco use date assessed: 10/14/24 Dental Screening Dental Screen Date: 10/14/24 HPI HPI Comments History of Present Illness Details 74-year-old female with history of hyper tension, hypercholesterolemia, osteoarthritis of the knees, COPD, peripheral neuropathy, s/p ileostomy/colostomy presents to the office today for management of chronic conditions as well as physical exam. Currently lives at home with her and is retired. She is disabled secondary to her ostomy. Hypertension-compliant with amlodipine 10 mg daily and carvedilol 3.125 mg twice daily. Blood pressure in the office today 100/52 Hyperlipidemia. On atorvastatin 10 mg daily COPD-not currently on maintenance inhalers. No recent exacerbation. Peripheral neuropathy-maintained on gabapentin 100 mg 3 times daily Ostomy in place- h/o laparotomy with creation of a double-barrel ileostomy because of a small bowel injury after ventral hernia repair in 2009. She manages ostomy care however is noting fungal infection around ostomy site which she has been using powder on but she is interested in systemic medications. She does also report increased output and poor fitting supplies secondary to existing hernia. Cervical spine osteoarthritis-was seen by Neurosurgery today who recommended conservative management. Following with chiropractic. No radicular symptoms. Describes this is more irritating 2/10 Cigarette smoking-continue smoking about 4 cigarettes per day, has cut back from 1 pack per day. She is not interested in lung cancer screening or nicotine replacement. Rare alcohol consumption. No drug use. Health maintenance: Declines lung cancer screening. Declines mammograms Declines colonoscopies Agreeable to DEXA scan ROS: General: No fevers, malaise, unintentional weight loss HEENT: No blurred vision, diplopia. No sore throat, nasal congestion, rhinorrhea, sinus pain, ear pain Neck - no adenopathy Cardiovascular: No chest pain, palpitations, or leg edema Respiratory: No shortness of breath, wheezing, cough GI: No abdominal pain, nausea, vomiting, diarrhea, constipation, melena, hematochezia : No dysuria, hematuria, increased urinary frequency, decreased urinary output MSK: No myalgia, back pain, arthralgias Neuro: No headaches, weakness, paresthesias Psych: no depression/anxiery. No AH/VH. No SI/HI Skin: No rashes or lesions EXAM: Constitutional - Awake and Alert, No apparent distress Eyes - PERRLA, EOMI. Anicteric Nose- septum midline, nares clear, no sinus tenderness Mouth/throat- mucosa moist, tongue and uvula midline, no erythema/edema or tonsillar adenopathy. Neck-trachea midline, thyroid symmetric without palpable nodules, no adenopathy Cardiovascular - S1S2, RRR, No edema Respiratory - Normal lung expansion, Normal respiratory effort, No respiratory distress, CTA bilaterally Gastrointestinal - NT / ND; +BS; No rebound or guarding. ileostomy stoma with tranulation tissue, yellow brown output no blood - No CVA tenderness Extremities - no calf tenderness bilaterally, no swelling Musculoskeletal - Normal inspection, normal ROM Skin - Warm/Dry Neurological - Alert & oriented x3, CN II-XII in tact, 5/5 strength BUE and BLE Psychological - Appropriate affect [facility] Medical History (Updated 12/23/24 @ 11:33 by MILAGROS York) Complete heart block Cervical spinal stenosis Thyroid nodule Parastomal hernia Complication of external stoma of gastrointestinal tract Morbid obesity Hypertension Surgical History S/P ileostomy S/P colostomy Family History Father Metastatic cancer Colon cancer Mother CHF (congestive heart failure) Social History Housing: House Alcohol intake: current Alcohol intake frequency: holidays/special occasions only Patient Tobacco Use Status: Current everyday Tobacco user Cigarettes Per Day: 4 service: No Current occupational status: retired and disabled Cognitive needs: No Hearing needs: No Vision needs: Yes (reading glasses) Questionnaire Thrive Questionnaire Date Thrive assessed: 10/14/24 KAROLYN-7 AMB Questionnaire KAROLYN-7 Date KAROLYN - 7 assessed: 10/14/24 Source: Developed by Drs. Larry Molina, Geeta Lozano, Rajiv Santiago and colleagues, with an educational patito from [employer]. Physical exam (Primary Care) Vital Signs: Last Vital Signs Temp 97.4 F 12/23/24 10:59 Pulse 60 12/23/24 10:59 Resp 16 12/23/24 10:59 BP 100/52 L 12/23/24 10:59 Pulse Ox 96 12/23/24 10:59 Oxygen Delivery Method Room Air 12/23/24 10:59 BMI result Body Mass Index 30.9 Tobacco/Smoking Status: Tobacco use Status Tobacco use date assessed 10/14/24 12/23/24 10:54 Patient Tobacco Use Status Current everyday Tobacco 12/23/24 10:54 Thrive Assessment: Date of Thrive Assessment Date Thrive assessed 10/14/24 12/23/24 10:54 Coding Level of Care Code Est Pt Level 4 (50643) New Pt Prev Care >65yr (67155) Diagnoses Routine medical exam Z00.00 Increased ileostomy output R19.8; Z93.2 Complete heart block I44.2 Complication of external stoma of gastrointestinal tract Hypertension I10 Morbid obesity E66.01 Assessment & Plan Assessment & Plan (1) Routine medical exam: Code(s): Z00.00 - Encounter for general adult medical examination without abnormal findings Category: Medical Plan: Presents for annual physical exam. Agreeable to DEXA scan but otherwise declines mammogram, colonoscopy. Counseled on risk of breast cancer and colon cancer as well as the importance of screenings. Reviewed past medical, social, surgical, family history. (2) Increased ileostomy output: Code(s): R19.8 - Other specified symptoms and signs involving the digestive system and abdomen; Z93.2 - Ileostomy status Category: Medical Plan: Referred to Gastroenterology for further evaluation and management (3) Complete heart block: Code(s): I44.2 - Atrioventricular block, complete Category: Medical Plan: Continue following with cardiology. Pacemaker in place (4) Complication of external stoma of gastrointestinal tract: Category: Medical Plan: Referred to Gastroenterology for management of ostomy output. Referred to Dermatology for evaluation of fungal infection. Discussed that at this time, I do not feel systemic antifungal medication is indicated, defer management to dermatology (5) Hypertension: Code(s): I10 - Essential (primary) hypertension Category: Medical Plan: Controlled. Continue amlodipine 10 mg daily and carvedilol 3.125 mg twice daily. (6) Morbid obesity: Code(s): E66.01 - Morbid (severe) obesity due to excess calories Category: Medical Plan: Weight loss efforts encouraged. Recommend increasing exercise efforts including weight-bearing exercises to help prevent osteoporosis. Recommend diet changes increased protein intake, fruits, vegetables. Recommend avoiding refined sugars and simple carbohydrates as well as highly processed foods. Plan Follow-up in 6 months Routine screening labs as ordered below Declines screening mammogram and colonoscopy. Consult on the importance of cancer screenings Continue following for annual skin exams and use sun protection Annual eye exams Wear seat belt in car Recommend regular exercise and healthy diet Orders: Orders Hemoglobin A1c Today Z00.00 - Encounter for general adult medical examination without abnormal findings Complete Blood Count Auto Diff Today Z00.00 - Encounter for general adult medical examination without abnormal findings Basic Metabolic Panel Today Z00.00 - Encounter for general adult medical examination without abnormal findings Lipid Panel Today Z00.00 - Encounter for general adult medical examination without abnormal findings Vitamin D 25-OH Total Today Z00.00 - Encounter for general adult medical examination without abnormal findings Referrals Gastroenterology Referral R19.8 - Other specified symptoms and signs involving the digestive system and abdomen, Z93.2 - Ileostomy status Dermatology Referral B37.9 - Candidiasis, unspecified
[2024-12-23 10:59] VITALS: BP 100/52; PULSE 60; RESP 16; TEMP 36.3; O2SAT 96; BMI 30.9
== END 2024-12-23 11:41 | disposition home or self-care (01) ==
LOC: HO.HMCHD 10:43
PROVIDERS: PCP Internal Medicine; Visit Provider Physician Assistant
DX: Z00.00 Encounter for general adult medical examination without abnormal findings (principal); Z93.2 Ileostomy status; E66.01 Morbid (severe) obesity due to excess calories; Z68.30 Body mass index [BMI] 30.0-30.9, adult; I44.2 Atrioventricular block, complete; R19.8 Other specified symptoms and signs involving the digestive system and abdomen; I10 Essential (primary) hypertension

== ENCOUNTER 2025-05-19 09:42 | Outpatient (REF) | payer MEDICARE, SELFPAY ==
[2025-05-19 13:19] LABS: MANUAL DIFF FLAG NO
[2025-05-19 13:37] LABS: Hematocrit 38.7 % (37.0-47.0); Hemoglobin 12.1 g/dl (12.0-16.0); Imm Gran Abs Auto 0.02 X10*3/uL (0.00-0.03); Imm Gran Pct Auto 0.3 % (0.0-0.4); Lymphocytes Absolute Auto 2.0 X10*3/uL (1.2-4.9); Mean Corpuscular HGB Conc 31.3 g/dl (31.0-35.0); Mean Corpuscular Hemoglobin 29.4 pg (27.0-33.0); Mean Corpuscular Volume 93.9 fL (80.0-98.0); NRBC Abs Auto 0.000 X10*3/uL (0.0-0.012); NRBC Pct Auto 0.0 /100WBC (0.0-0.2); Platelet Count 204 X10*3/uL (160-400); Red Blood Count 4.12 X10*6/uL (4.20-5.50); White Blood Count 7.8 X10*3/uL (4.8-10.8)
[2025-05-19 14:42] LABS: Anion Gap 12 (12-20); Blood Urea Nitrogen 14 mg/dL (9-16); Calcium 9.2 mg/dL (8.4-10.2); Carbon Dioxide 24 mmol/L (22-29); Chloride 110 mmol/L (96-108); Cholesterol 185 mg/dL (<200); Estimated Glomerular Filt Rate 27; HDL Cholesterol 47 mg/dL (>40); Potassium 4.0 mmol/L (3.3-5.1); Sodium 142 mmol/L (135-145); Triglycerides 219 mg/dL (<150)
== END 2025-05-19 09:43 | disposition home or self-care (01) ==
LOC: HO.HMGCLDS 09:42
PROVIDERS: PCP Internal Medicine; Visit Provider Physician Assistant
DX: Z00.00 Encounter for general adult medical examination without abnormal findings (principal); Z13.1 Encounter for screening for diabetes mellitus; Z13.6 Encounter for screening for cardiovascular disorders; Z13.0 Encounter for screening for diseases of the blood and blood-forming organs and certain disorders involving the immune mechanism
CPT/HCPCS: 36415; 80048; 80061; 82306; 83036; 85025

== ENCOUNTER 2025-06-03 13:25 | Outpatient (AMB) | payer MEDICARE, SELFPAY ==
--- NOTE | 2025-06-03 13:41 | HO.NEPHOV ---
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: No Accompanied by: Spouse Allergies No Known Allergies Allergy (Unknown, Verified 06/03/25 13:45) Medication List - Last Reconciled 06/03/25 by Willie Brown MD amlodipine 10 mg PO DAILY apixaban (Eliquis) 5 mg PO BID atorvastatin 10 mg PO DAILY carvedilol 3.125 mg PO BID gabapentin 100 mg PO TID ostomy supplies (Convatec Night Drainage Tubing misc) ConvaTec Pouches with 4 boxes ostomy supplies (Convatec Night Drainage Tubing misc) ConvaTec Stomahesive Paste with 2 refills ostomy supplies (Convatec Night Drainage Tubing misc) Safe & Simple Ring Barrier, 1 box HPI Comments Details: The patient is a 74 year old individual presenting for evaluation of chronic kidney disease. The patient was referred due to concerns about kidney function, particularly a recent elevated creatinine level, which the patient attributes to dehydration after drinking coffee and inadequate water intake before the lab test. The patient's usual creatinine is around 1.75, and kidney function has been stable in the 30-35% range since at least 2018, with the most recent result being 27%. The last nephrology consultation was 15 years ago, following an ileostomy procedure. The ileostomy was performed 15 years ago as a life-saving measure after the patient developed sepsis from a nicked intestine during a hernia repair surgery. The patient has a large, persistent hernia at the ileostomy site. Due to the ileostomy, the patient experiences significant fluid loss, leading to symptoms of dehydration such as a dry mouth, dry throat, and dry eyes. To manage the high output, the patient takes four loperamide pills daily, a dose reduced from an initial recommendation of eight. Hydration efforts include drinking a lot of water, sugar-free juice, and recently adding electrolyte powders, while avoiding soda and limiting Gatorade due to its sugar content. The patient's medical history includes hypertension, for which the patient takes two medications including amlodipine and Eliquis. The patient checks blood pressure more often at night, with readings typically around 130-140 systolic. Prior to pacemaker placement, the patient had issues with low blood pressure and seizure-like episodes of passing out, which prompted an emergency department visit and subsequent pacemaker implantation for a slow, irregular heart rhythm. The patient has a chronic, dry, tickling cough that has been present for many years and is a current smoker. [facility] Medical History (Updated 05/19/25 @ 17:01 by MILAGROS York) Complete heart block Cervical spinal stenosis Thyroid nodule Parastomal hernia Complication of external stoma of gastrointestinal tract Morbid obesity Hypertension Surgical History S/P ileostomy S/P colostomy Family History Father Metastatic cancer Colon cancer Mother CHF (congestive heart failure) Social History Housing: House Alcohol intake: current Alcohol intake frequency: holidays/special occasions only Patient Tobacco Use Status: Current everyday Tobacco user Cigarettes Per Day: 4 service: No Current occupational status: retired and disabled Cognitive needs: No Hearing needs: No Vision needs: Yes (reading glasses) Review of Systems Const Denies fever(s) and Denies weight loss Card Denies chest pain Resp Denies cough and Denies hemoptysis GI Denies abdominal pain, Denies diarrhea and Denies nausea Musc Denies back pain Neuro Denies focal weakness Physical Exam Vital Signs: Last Vital Signs Pulse 63 06/03/25 13:42 BP 118/68 06/03/25 13:42 Pulse Ox 97 06/03/25 13:42 Oxygen Delivery Method Room Air 06/03/25 13:42 BMI result Body Mass Index 31.2 Comfortable Dry mucosa Neck supple no JVD. Lungs entry equal no rales. Heart S1-S2 heard no gallop or rub. Abdomen soft nontender. Neuro alert awake oriented. No asterixis. Extremities no edema. Results Reviewed Nephrology Results: Hgb, (12.0-16.0) 12.1 g/dl 05/19/25 WBC, (4.8-10.8) 7.8 X10*3/uL 05/19/25 Plt Count, (160-400) 204 X10*3/uL 05/19/25 Sodium, (135-145) 142 mmol/L 05/19/25 Potassium, (3.3-5.1) 4.0 mmol/L 05/19/25 Chloride, (96-108) 110 mmol/L H 05/19/25 Carbon Dioxide, (22-29) 24 mmol/L 05/19/25 BUN, (9-16) 14 mg/dL 05/19/25 Creatinine, (0.5-1.4) 1.84 mg/dL H 05/19/25 Calcium, (8.4-10.2) 9.2 mg/dL Δ 05/19/25 Assessment & Plan Assessment & Plan (1) Hypertension: Code(s): I10 - Essential (primary) hypertension Category: Medical (2) CKD (chronic kidney disease), stage IV: Code(s): N18.4 - Chronic kidney disease, stage 4 (severe) Category: Medical Plan 1. Chronic Kidney Disease Baseline creatinine is around 1.4-1.6. - The patient's kidney function is noted to be relatively stable, fluctuating between 27-35%, consistent with stage 3 CKD. - The fluctuations are likely secondary to variations in hydration status related to the ileostomy. - Further blood tests will be ordered to further evaluate kidney status. - The patient is advised to continue maintaining adequate fluid intake and to add electrolyte powders, such as Liquid IV or Pedialyte, to water to improve hydration. - It was explained that intermittent IV fluid administration every few months is not a practical long-term solution as its effects are short-lived. - A follow-up visit is scheduled for July to review new lab results. 2. Essential Hypertension - The patient's blood pressure was low during the visit, which is a concern as it can reduce perfusion to the kidneys. - The dose of amlodipine will be reduced from 10 mg to 5 mg (half a tablet) daily. - The patient is instructed to monitor blood pressure at home, with a target of around 130 systolic. - The patient can return to the full 10 mg dose if blood pressure increases, and the regimen will be reassessed at the follow-up in July. 3. Tobacco Use - The patient is a current smoker. - The patient was counseled to reduce smoking. Orders: Orders UA and rflx microscopic 4 Weeks N18.32 - Chronic kidney disease, stage 3b Creatinine Urine 4 Weeks N18.32 - Chronic kidney disease, stage 3b Total Protein Urine Random 4 Weeks N18.32 - Chronic kidney disease, stage 3b Basic Metabolic Panel 4 Weeks N18.32 - Chronic kidney disease, stage 3b Complete Blood Count no Diff 4 Weeks N18.32 - Chronic kidney disease, stage 3b Coding Level of Care Code New Pt Level 4 (63521) Diagnoses Hypertension I10 CKD (chronic kidney disease), stage IV N18.4
[2025-06-03 13:42] VITALS: BP 118/68; PULSE 63; O2SAT 97; BMI 31.2
--- OUTSIDE RECORDS SUMMARY | 2025-06-03 17:20 | XMS_ITS | Patient Health Record ---
Author Organization [facility] Address [address] [place] [address] Care Team Providers Care Skin Former Name Role Phone Wali Harris MD Primary Care Provider Sunday Rueda Unavailable [phone] Allergies Allergen (clinical drug ingredient) Drug/Non Drug [...] MG 1 capsule Orally babatunde ry 12 hrs; Duration: 05 days 2014 Not-Taking Doxycycline Hyclate 100 [...] - Neuritis (729.2) Active confirmed Problem Paronychia (07612196) Paronychia (681.11) Active confirmed Problem Abscess /Cellulitis (682.7) Active confirmed Problem Ingrowing nail (066126759) Ingrowing Nail (703.0) Active confirmed Plan Of Treatment Pending Test Test Name Order Date 44169- Debride <25 sq cm 06/26/2014 52973 I&D ABSCESS- SIMPLE,SINGLE 014 [id number] OF HEMATOMA/FLUID 015 Insurance Providers Payer Name Payer Address Payer Phone Subscriber Number Group Number Insured Name Patient Relationship to Insured Coverage Start Date Coverage End Date [facility] [address] [facility] [place] [address] [phone] [id number] Pancho Patterson Spouse - patient is the spouse of the insured Medical (General) History Medical History History ICD Code Arthritis Broken bones Diverticulosis Psoriasis/eczema Reflux Sciatica chronic sinusitis Measles Mumps Chicken pox Joint implants/screws Transfusions Surgical History Surgery Date(Month/Year) gallbladder;stones 11/1981 Diverticulitisis;colostomy/reversed 06/10 004 Hernia repair 02/2010 ankle surgery ileostomy
== END 2025-06-03 14:08 | disposition home or self-care (01) ==
LOC: HO.HKA 13:26
PROVIDERS: PCP Physician Assistant; Referring Provider Physician Assistant; Visit Provider Internal Medicine Hypertension Specialist
DX: I12.9 Hypertensive chronic kidney disease with stage 1 through stage 4 chronic kidney disease, or unspecified chronic kidney disease (principal); N18.4 Chronic kidney disease, stage 4 (severe)
CPT/HCPCS: 99204

== ENCOUNTER → 2025-06-03 13:25 | Outpatient (BNVA) | payer MEDICARE, SELFPAY | PROVIDERS: PCP Physician Assistant; Referring Provider Physician Assistant; Visit Provider Internal Medicine Hypertension Specialist | DX: I10 Essential (primary) hypertension (principal); N18.4 Chronic kidney disease, stage 4 (severe) | CPT/HCPCS: 99202 ==

== ENCOUNTER 2025-06-23 09:52 | Outpatient (AMB) | payer MEDICARE, SELFPAY ==
--- NOTE | 2025-06-23 09:36 | A.OFFPC_ITS ---
Vital Signs 06/23/25 09:53 Height 5 ft 4 in Weight 83.007 kg BMI 31.4 BP 126/80 Blood Pressure Location Lt brachial Position Sitting Pulse 69 Pulse Source Pulse Oximeter Temp 97.9 F Temp Source Temporal Artery Scan Pulse Oximetry (%) 98 Oxygen Delivery Method Room Air Intake Visit Reasons: 6 month f/u - see comments Bell Tier Required: No Accompanied by: Self / Same As Patient Allergies No Known Allergies Allergy (Unknown, Verified 06/23/25 09:53) Medication List - Last Reconciled 06/23/25 by MILAGROS York amlodipine 5 mg PO DAILY amlodipine 10 mg PO DAILY apixaban (Eliquis) 5 mg PO BID atorvastatin 10 mg PO DAILY carvedilol 3.125 mg PO BID gabapentin 100 mg PO TID ostomy supplies (Convatec Night Drainage Tubing misc) ConvaTec Pouches with 4 boxes ostomy supplies (Convatec Night Drainage Tubing misc) ConvaTec Stomahesive Paste with 2 refills ostomy supplies (Convatec Night Drainage Tubing misc) Safe & Simple Ring Barrier, 1 box Tobacco use date assessed: 06/23/25 Fall risk assessment: No Falls in past year Last assessed Fall Risk: 06/23/25 Dental Screening Dental Screen Date: 06/23/25 Did you have a dental visit in the last 12 months?: No Did you have a dental problem in the last 6 months where you did not have access to dental care?: No HPI HPI Comments History of Present Illness Details 74-year-old female with history of hyper tension, hypercholesterolemia, osteoarthritis of the knees, COPD, peripheral neuropathy, s/p ileostomy/colostomy presents to the office today for management of chronic conditions as well as physical exam. Currently lives at home with her and is retired. She is disabled secondary to her ostomy. HTN/Hyperlipidemia/Hx CHB/paroxysmal atrial fibrillation. On atorvastatin 10 mg daily. s/p pacemaker placement, 10/07/2024. Dr. Shukla. Amlodipine decreased to 5mg daily by nephro. BP controlled. Continues on coreg 3.125 mg twice daily. Recently started on Eliquis 5 mg twice daily after AFib was detected on device after implant COPD-not currently on maintenance inhalers. No recent exacerbation. Peripheral neuropathy-maintained on gabapentin 100 mg 3 times daily Ostomy in place- h/o laparotomy with creation of a double-barrel ileostomy because of a small bowel injury after ventral hernia repair in 2009. She manages ostomy care however is noting fungal infection around ostomy site which she has been using powder on but she is interested in systemic medications. She does also report increased output and poor fitting supplies secondary to existing hernia. General surgery prn Cervical spine osteoarthritis-was seen by Neurosurgery today who recommended conservative management. Following with chiropractic. No radicular symptoms. Describes this is more irritating 2/10 Cigarette smoking-continue smoking about 4 cigarettes per day, has cut back from 1 pack per day. Motivated to quit. Has a plan to go cold turkey- get rid of cigarettes and triggers CKD stage IV- following with Dr. Brown. Creat increased to 1.84, GFR 27 Concerns: Palpitations in neck. Did have trach placed over 15 years Health maintenance: Declines lung cancer screening. Declines mammograms Declines colonoscopies Agreeable to DEXA scan ROS: General: No fevers, malaise, unintentional weight loss HEENT: No blurred vision, diplopia. No sore throat, nasal congestion, rhinorrhea, sinus pain, ear pain Neck - no adenopathy. No bruits Cardiovascular: No chest pain, or leg edema. See hpi Respiratory: No shortness of breath, wheezing, cough GI: see hpi : No dysuria, hematuria, increased urinary frequency, decreased urinary output MSK: see hpi Neuro: No headaches, weakness, paresthesias Psych: no depression/anxiery. No AH/VH. No SI/HI Skin: No rashes or lesions EXAM: Constitutional - Awake and Alert, No apparent distress Eyes - PERRL Cardiovascular - S1S2, RRR, No edema Respiratory - Normal lung expansion, Normal respiratory effort, No respiratory distress, CTA bilaterally Extremities - no calf tenderness bilaterally, no swelling Skin - Warm/Dry Neurological - Alert & oriented x3 Psychological - Appropriate affect PFSH Medical History (Updated 06/23/25 @ 10:30 by MILAGROS York) Paroxysmal atrial fibrillation Complete heart block Cervical spinal stenosis Thyroid nodule Parastomal hernia Complication of external stoma of gastrointestinal tract Morbid obesity Hypertension Surgical History S/P ileostomy S/P colostomy Family History (Updated 06/23/25 @ 09:54 by Lavinia Santoyo MA) Father Metastatic cancer Colon cancer Mother CHF (congestive heart failure) Social History Housing: House Alcohol intake: current Alcohol intake frequency: holidays/special occasions only Patient Tobacco Use Status: Current everyday Tobacco user Cigarettes Per Day: 4 e-Cigarette/Vaping Use: Currently Using service: No Current occupational status: retired and disabled Cognitive needs: No Hearing needs: No Vision needs: Yes (reading glasses) Questionnaire PHQ-9 Over the last 2 weeks, how often have you been bothered by any of the following problems? 1. Little interest or pleasure in doing things: not at all 2. Feeling down, depressed, or hopeless: not at all 3. Trouble falling or staying asleep, or sleeping too much: not at all 4. Feeling tired or having little energy: not at all 5. Poor appetite or overeating: not at all 6. Feeling bad about yourself - or that you are a failure or have let yourself or your family down: not at all 7. Trouble concentrating on things, such as reading the newspaper or watching television: not at all 8. Moving or speaking so slowly that other people could have noticed. Or the opposite - being so fidgety or restless that you have been moving around a lot more than usual: not at all 9. Thoughts that you would be better off or of hurting yourself in some way: not at all Total score: 0 Depression Screening Interpretation: Negative Depression Screening Done: Yes Source: Developed by Drs. Larry Molina, Geeta Lozano, Rajiv Santiago and colleagues, with an educational patito from [employer]. Thrive Questionnaire Date Thrive assessed: 06/23/25 I am a: Patient Within the past 12 months, did the food you bought not last and you didn't have the money to get more?: Never true Within the past 12 months, did you worry whether your food would run out before you got money to buy more?: Never true Do you have trouble paying for medicines?: No Do you have trouble getting transportation to medical appointments?: No Do you have trouble paying your heating and electricity bill?: No Do you have trouble taking care of your child, family member or friend?: No Do you have trouble with day-to-day activities such as bathing, preparing meals, shopping, managing finances, etc.?: No Are you currently unemployed and looking for a job?: No Are you interested in more education?: No THRIVE Score: 0 AUDIT C Alcohol Use Questionnaire (AUDIT-C) 1. How often do you have a drink containing alcohol?: Never 3. How often do you have six or more drinks on one occasion?: Never Total Score: 0 KAROLYN-7 AMB Questionnaire KAROLYN-7 Date KAROLYN - 7 assessed: 06/23/25 Feeling nervous, anxious, or on edge: 0 = Not at all Not being able to stop or control worryin = Not at all Worrying too much about different things: 0 = Not at all Trouble relaxin = Not at all Being so restless that it is hard to sit still: 0 = Not at all Becoming easily annoyed or irritable: 0 = Not at all Feeling afraid as if something awful might happen: 0 = Not at all Total KAROLYN-7 score (0-4 normal; 5-9 mild; 10-14 moderate; 15-21 severe): 0 Source: Developed by Drs. Larry Molina, Geeta Lozano, Rajiv Santiago and colleagues, with an educational patito from [employer]. Physical exam (Primary Care) Vital Signs: Last Vital Signs Temp 97.9 F 06/23/25 09:53 Pulse 69 06/23/25 09:53 BP 126/80 06/23/25 09:53 Pulse Ox 98 06/23/25 09:53 Oxygen Delivery Method Room Air 06/23/25 09:53 BMI result Body Mass Index 31.4 Tobacco/Smoking Status: Tobacco use Status Tobacco use date assessed 06/23/25 06/23/25 10:02 Patient Tobacco Use Status Current everyday Tobacco 06/23/25 09:36 e-Cigarette/Vaping Use Currently Using 06/23/25 10:02 PHQ-9: PHQ-9 Score PHQ-9: Total score 0 06/23/25 10:10 Depression Screening Interpretation: Negative Thrive Assessment: Date of Thrive Assessment Date Thrive assessed 06/23/25 06/23/25 10:02 Coding Level of Care Code Est Pt Level 4 (35344) Add On Problem Visit Only Diagnoses Hypertension I10 CKD (chronic kidney disease), stage IV N18.4 Current smoker F17.200 Paroxysmal atrial fibrillation I48.0 Assessment & Plan Assessment & Plan (1) Hypertension: Code(s): I10 - Essential (primary) hypertension Category: Medical Plan: Controlled. Continue reduced dose of amlodipine 5 mg daily and carvedilol 3.125 mg twice daily (2) CKD (chronic kidney disease), stage IV: Code(s): N18.4 - Chronic kidney disease, stage 4 (severe) Category: Medical Plan: Reviewed last note from Nephrology. Blood pressure control as above. Counseled on fluid intake, at least 64 oz of water on a daily basis (3) Current smoker: Code(s): F17.200 - Nicotine dependence, unspecified, uncomplicated Category: Medical Plan: Strongly encouraged smoking cessation. Encouraged patient to proceed with plan regarding stopping cold turkey and removing all triggers including Estrace. (4) Paroxysmal atrial fibrillation: Code(s): I48.0 - Paroxysmal atrial fibrillation Category: Medical Plan: Reviewed last cardiology note from [facility]. Rate is controlled, sinus rhythm in the office. Continue Eliquis 5 mg twice daily for anticoagulation as well as Coreg for rate control. Continue following with Cardiology Plan Follow-up in the office in 6 months with labs completed prior to visit. She is agreeable to DEXA scan which is ordered. Continues to decline mammogram, colonoscopy, lung cancer screening Orders: Orders Vitamin D 25-OH Total 6 Months E04.1 - Nontoxic single thyroid nodule, E55.9 - Vitamin D deficiency, unspecified, F17.200 - Nicotine dependence, unspecified, uncomplicated, I10 - Essential (primary) hypertension, N18.4 - Chronic kidney disease, stage 4 (severe) XR DEXA axial skeleton Today E55.9 - Vitamin D deficiency, unspecified, M89.8X9 - Other specified disorders of bone, unspecified site, N95.9 - Unspecified menopausal and perimenopausal disorder Lipid Panel 6 Months E04.1 - Nontoxic single thyroid nodule, E55.9 - Vitamin D deficiency, unspecified, F17.200 - Nicotine dependence, unspecified, uncomplicated, I10 - Essential (primary) hypertension, N18.4 - Chronic kidney disease, stage 4 (severe) Basic Metabolic Panel 6 Months E04.1 - Nontoxic single thyroid nodule, E55.9 - Vitamin D deficiency, unspecified, F17.200 - Nicotine dependence, unspecified, uncomplicated, I10 - Essential (primary) hypertension, N18.4 - Chronic kidney di sease, stage 4 (severe) Liver Panel 6 Months E04.1 - Nontoxic single thyroid nodule, E55.9 - Vitamin D deficiency, unspecified, F17.200 - Nicotine dependence, unspecified, u ncomplicated, I10 - Essential (primary) hypertension, N18.4 - Chronic kidney disease, stage 4 (severe) Microalbumin, Random (w Creat) 6 Months E04.1 - Nontoxic single thyroid nodule, E55.9 - Vitamin D deficiency, unspecified, F17.200 - Nicotine dependence, unspecified, uncomplicated, I10 - Essential (primary) hypertension, N18.4 - Chronic kidney disease, stage 4 (severe) Medications: New amlodipine 5 mg PO DAILY 90 tabs 0RF On Hold amlodipine Hold Comment: Dose Change 10 mg PO DAILY 90 tabs 1RF
[2025-06-23 09:53] VITALS: BP 126/80; PULSE 69; TEMP 36.6; O2SAT 98; BMI 31.4
== END 2025-06-23 10:28 | disposition home or self-care (01) ==
LOC: HO.HMCHD 09:52
PROVIDERS: PCP Physician Assistant; Visit Provider Physician Assistant
DX: I12.9 Hypertensive chronic kidney disease with stage 1 through stage 4 chronic kidney disease, or unspecified chronic kidney disease (principal); N18.4 Chronic kidney disease, stage 4 (severe); F17.200 Nicotine dependence, unspecified, uncomplicated; I48.0 Paroxysmal atrial fibrillation

== ENCOUNTER → 2025-06-23 09:52 | Outpatient (BNVA) | payer MEDICARE, SELFPAY | PROVIDERS: PCP Physician Assistant; Visit Provider Physician Assistant | DX: I10 Essential (primary) hypertension (principal); N18.4 Chronic kidney disease, stage 4 (severe); F17.200 Nicotine dependence, unspecified, uncomplicated; I48.0 Paroxysmal atrial fibrillation; Z13.31 Encounter for screening for depression; Z13.39 Encounter for screening examination for other mental health and behavioral disorders | CPT/HCPCS: 96127; 99212 ==